=== PATIENT | male | born 1965 | race Caucasian/White ===

== ENCOUNTER 2020-09-12 06:57 | Outpatient (CLI) | payer OTHER, SELFPAY ==
--- NOTE | ~2020-09-12 | CT_ITS ---
EXAMINATION: CT lung screening DATE: 09/12/2020 07:19 INDICATION: Tobacco dependence TECHNIQUE: Computed tomography (CT) of the chest was performed without intravenous contrast. The dose -length product was 79.50 mGy-cm. Automated exposure control and iterative reconstruction technique w ere employed. COMPARISON: Chest x-ray dated 07/29/2015 FINDINGS: No significant pleural or pericardial effusion. No thoracic lymphadenopathy. No significant pleural or pericardial effusion. Moderate emphysema. No significant soft tissue abnormality. There i s bilateral gynecomastia. No endobronchial lesions. Small chronic cavitary lesion right middle lobe, likely benign. No focal airspace consolidation. No pneumothorax. Tiny 2 mm right fissural nodule, abdias ge 66. No osteolytic or osteoblastic lesions. Mild thoracic spondylosis. IMPRESSION: 1. Lung-RADS category 2: Benign appearance or behavior. Continue annual screening with noncontrast lo w-dose chest CT in 12 months. Reviewed, dictated and finalized at location B. 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 Lung-RADS category 2: Benign appearance or behavior. Continue annual screeni ng with noncontrast low-dose chest CT in 12 months.
== END 2020-09-12 06:58 | disposition home or self-care (01) ==
PROVIDERS: PCP Family Medicine; Visit Provider Physician Assistant
DX: Z12.2 Encounter for screening for malignant neoplasm of respiratory organs (principal); F17.290 Nicotine dependence, other tobacco product, uncomplicated
CPT/HCPCS: G0297

== ENCOUNTER → 2021-02-22 01:05 | Outpatient (CLI) | payer OTHER, SELFPAY ==
[2021-02-22 19:43] LABS: SARS-CoV-2 RNA PCR Negative
== END ==
PROVIDERS: PCP Family Medicine; Visit Provider Internal Medicine Gastroenterology
DX: Z01.812 Encounter for preprocedural laboratory examination (principal); Z20.822 Contact with and (suspected) exposure to COVID-19
CPT/HCPCS: C9803; U0003; U0005

== ENCOUNTER 2021-02-26 02:42 | Day surgery (SDC) | payer OTHER, SELFPAY ==
[2021-02-13 14:48] VITALS: BMI 21.1
--- NOTE | 2021-02-25 15:29 | P.PNAN_ITS ---
Anes - Initial Pre Proc Eval Procedure: Operation Date: 02/26/21 07:30 Proposed Procedures p Screening Colonoscopy - Jonathon Junior MD Date/Time: 02/25/21 15:29 Surgeon: Jonathon Junior MD Pre Op Diagnosis: hx of colon polyps Patient Data Age: 55 Gender: M Height: 1.75 m Weight: 65 kg Allergies Allergy/AdvReac Type Severity Reaction Status Date / Time No Known Allergies Allergy Verified 02/26/21 06:17 Home Medications Medication Instructions Recorded Confirmed Type fluticasone propion-salmeterol 1 inh INHALATION 02/13/21 History [Wixela Inhub] lisinopril-hydrochlorothiazide 1 tablet 02/13/21 History Patient hx anesthesia problems: none Family hx anesthesia problems: none REPLACED BY [facility] Past Medical History Medical History COPD (chronic obstructive pulmonary disease) Depression ETOH abuse HCV (hepatitis C virus) HTN (hypertension) Smoker Family History Family History (Updated 05/08/16 @ 23:21 by DOCTOR UNKNOWN) Mother Patient's mother is in good health Sibling Patient's sister is in good health Patient's brother is in good health Father Family history of malignant neoplasm Patient's father is Social History Social History Smoking packs per day: 1.5 Smoking cigarettes per day: 30.0 Years smoked: 39 Smoking pack-years: 58.50 Smoking status: Current every day smoker Tobacco type: cigarettes Alcohol intake: never Drinks per week: 60 Alcohol use details: BEER Living arrangements: with roommate(s) Gender identity (if verbalized by the patient): Female Spiritual care concerns: No Anes - Eval Final PreProcedure Day of Procedure 02/25/21 15:29 Patient weight: normal Heart: regular rate and rhythm Lungs: clear to auscultation and normal air movement Airway: Mallampati scale class II Neurological: alert and oriented Last oral intake: >/= 8 hours ASA classification: III Emergent: no Anesthetic plan: proceed Anesthesia type and monitoring: general GIVS Informed Consent: The patient's anesthetic plan and its attendant risks and benefits were discussed with the patient/family/POA. Questions were solicited and answers provided to the satisfaction of the patient/family/POA.
[2021-02-26 06:19] VITALS: BP 155/101; PULSE 88; RESP 20; TEMP 36.2; O2SAT 97; BMI 22.2
[2021-02-26] MEDS: LACTATED RINGERS 1,000 ML 150 ML IV CONT (06:33)
--- NOTE | 2021-02-26 07:31 | PM.HPGS ---
History of Present Illness History of Present Illness Consent: Risks, benefits, and alternatives have been discussed and questions answered. Patient agrees to proceed with procedure. Chief complaint: hx of colon polyps Narrative: Les Baker is a 55 year old male with colon polyps 2019 Review of Systems Constitutional: Constitutional: Denies headache(s) and Denies weakness Eyes: Eyes: Denies blurry vision ENT: Reports Normal hearing present, Denies headache(s) and Denies neck pain Cardiovascular: Cardiovascular: Denies chest pain and Denies dyspnea Respiratory: Respiratory: Denies dyspnea Gastrointestinal: Gastrointestinal: Reports no additional gastrointestinal complaints Genitourinary: Genitourinary: Denies dysuria Musculoskeletal: Musculoskeletal: Denies neck pain Integumentary/Breasts: Skin/Breast: Denies dry skin Neurologic: Reports Normal hearing present, Denies headache(s) and Denies weakness Psychiatric: Psychiatric: Denies anxiety Endocrine: Endocrine: Denies change in body appearance Hematologic/Lymphatic: Hematologic/Lymphatic: Denies easy bleeding Allergic/Immunologic: Allergic/Immunologic: Denies urticaria PMFSH Past Medical History Medical History Adenomatous colon polyp COPD (chronic obstructive pulmonary disease) Depression ETOH abuse HCV (hepatitis C virus) HTN (hypertension) Smoker Family History Family History (Updated 05/08/16 @ 23:21 by DOCTOR UNKNOWN) Mother Patient's mother is in good health Sibling Patient's sister is in good health Patient's brother is in good health Father Family history of malignant neoplasm Patient's father is Social History Social History Smoking packs per day: 1.5 Smoking cigarettes per day: 30.0 Years smoked: 39 Smoking pack-years: 58.50 Smoking status: Current every day smoker Tobacco type: cigarettes Alcohol intake: never Drinks per week: 60 Alcohol use details: BEER Living arrangements: with roommate(s) Gender identity (if verbalized by the patient): Female Spiritual care concerns: No Meds Home Medications and Allergies Home Medications Medication Instructions Recorded Confirmed Type fluticasone propion-salmeterol 1 inh INHALATION 02/13/21 History [Wixela Inhub] lisinopril-hydrochlorothiazide 1 tablet 02/13/21 History Allergies Allergy/AdvReac Type Severity Reaction Status Date / Time No Known Allergies Allergy Verified 02/26/21 06:17 Vital Signs Vital Signs - 24 hr 02/26/21 06:19 Temperature 97.1 F L Pulse Rate 88 Respiratory Rate 20 Blood Pressure 155/101 H Pulse Oximetry 97 Exam Const: General: comfortable and no acute distress HENMT: General nose exam: Normal nares present Eyes: General: appearance normal, both eyes and all related structures Neck: Neck: no JVD Resp: Auscultation: clear to auscultation bilaterally Cardio: Rate: regular rate Rhythm: regular rhythm GI: Inspection: non-distended GI Palp: Yes Soft to palpation Skin: General skin exam: normal color Neuro: General: gait normal Speech: normal speech Extrem: General: normal to inspection Psych: Mental Status: mental status grossly normal Assessment and Plan Assessment and plan (1) Adenomatous colon polyp: Code(s): D12.6 - Benign neoplasm of colon, unspecified Status: Acute Assessment and Plan: colonoscopy
[2021-02-26 07:57] VITALS: BP 138/91; PULSE 74; RESP 23; O2SAT 98
[2021-02-26 08:07] VITALS: BP 142/98; PULSE 88; RESP 26; O2SAT 99
[2021-02-26 08:17] VITALS: BP 142/82; PULSE 82; RESP 26; O2SAT 99
== END 2021-02-26 08:37 | disposition home or self-care (01) ==
PROVIDERS: PCP Family Medicine; Visit Provider Internal Medicine Gastroenterology
PROC: 0DJD8ZZ Inspection of Lower Intestinal Tract, Via Natural or Artificial Opening Endoscopic (ICD-10-PCS; CPT 45378; principal; 2021-02-26 07:30)
DX: Z12.11 Encounter for screening for malignant neoplasm of colon (principal); D12.2 Benign neoplasm of ascending colon; K57.30 Diverticulosis of large intestine without perforation or abscess without bleeding; K64.8 Other hemorrhoids; J44.9 Chronic obstructive pulmonary disease, unspecified; I10 Essential (primary) hypertension; F32.9 Major depressive disorder, single episode, unspecified; B19.20 Unspecified viral hepatitis C without hepatic coma; F17.210 Nicotine dependence, cigarettes, uncomplicated
CPT/HCPCS: 45385; 88305; J2704; J7120

== ENCOUNTER 2021-03-18 09:38 | Outpatient (CLI) | payer OTHER, SELFPAY ==
--- NOTE | 2021-03-25 16:02 | WPDHOLTEREM ---
Holter/Event Monitor Holter/Event Monitor Date of procedure: 03/18/21 Procedure Type: 48 hour holter monitor Indications: Palpitations Conclusion: 1. 48 hour holter monitor on 03/18/21. 2. Underlying rhythm is sinus rhythm. HR range 62-130 bpm; average HR 92 bpm. 3. There are 1,822 premature supraventricular complexes, 2 supraventricular couplets, 3 supraventricular bigeminy and 12 supraventricular trigeminy. No supraventricular tachycardia. 4. There are 7 premature ventricular complexes and 1 ventricular couplet. No ventricular tachycardia. 5. No sinoatrial or atrioventricular blocks. No significant pauses greater than 2 seconds. 6. Patient reports symptoms of heart pumping and chest pain which demonstrate sinus rhythm, HR range 94-98 bpm and 1 PAC.
== END 2021-03-18 09:39 | disposition home or self-care (01) ==
PROVIDERS: PCP Family Medicine; Visit Provider Family Medicine
DX: R00.2 Palpitations (principal)
CPT/HCPCS: 93225; 93226

== ENCOUNTER 2021-03-28 09:41 | Outpatient (CLI) | payer OTHER, SELFPAY ==
--- NOTE | ~2021-03-28 | US_ITS ---
EXAMINATION: US art doppler w press LE BI DATE: 03/28/2021 11:07 INDICATION: Intermittent claudication TECHNIQUE: Segmental pressures and plethysmographic and Doppler waveforms of the brachial and lower e xtremity arteries were obtained. COMPARISON: None. FINDINGS: Right and left brachial artery pressures of 117 mm Hg and 117 mm Hg, respectively, are concordant (no rmal difference <= 30 mmHg). The right and left high-thigh pressure indices are 0.95 and 1.06, respec tively (normal > 1.2). The right ankle-brachial index (NEO) is 0.94 (normal >= 0.9-1). The right great toe-brachial index (T BI) is 0.57 (normal >= 0.6-0.8). The right lower extremity segmental pressure gradients are normal (n ormal gradients <= 20-30 mmHg between adjacent levels on the same leg or the same levels on the two l egs). Arterial waveforms are biphasic with brisk systolic upstrokes throughout. The left NEO is 0.99. The left TBI is 0.56. The left lower extremity segmental pressure gradients are normal. Arterial waveforms are biphasic with brisk systolic upstrokes throughout. IMPRESSION: 1. Mild arterial occlusive disease to the bilateral lower limbs with borderline bilateral ABIs and mi ldly decreased bilateral TBIs. Reviewed, dictated and finalized at location A. IMPRESSION: 1. Mild arterial occlusive disease to the bilateral lower limbs with borderline bilateral ABIs and mildly decreased bilateral TBIs.
== END 2021-03-28 09:42 | disposition home or self-care (01) ==
PROVIDERS: PCP Family Medicine; Visit Provider Family Medicine
DX: I73.9 Peripheral vascular disease, unspecified (principal)
CPT/HCPCS: 93923

== ENCOUNTER 2021-04-05 09:28 | Emergency (ER) | payer OTHER, SELFPAY ==
[2021-04-05 09:37] VITALS: BP 134/80; PULSE 100; RESP 18; TEMP 36.7; O2SAT 98
--- NOTE | 2021-04-05 09:56 | ED.GENADULT ---
HPI - General Adult General Chief complaint: Skin/Abscess/Foreign Body Stated complaint: Boil on back of leg Source: patient Mode of arrival: ambulatory Limitations: no limitations History of Present Illness HPI narrative: Patient presents for evaluation of painful swollen lesion to the posterior aspect of the right thigh for the last few months. On Wednesday of this past week he felt a warm fluid running down the back of his leg. He visualized the area and noted that it was draining purulent material. The following day he contacted his daughter who applied some pressure and drained additional purulent material. No fever, chills, nausea, vomiting. He is not diabetic. Current everyday smoker, reporting 1-1.5 pack per day habit. Related Data Home Medications Medication Instructions Recorded Confirmed atorvastatin 40 mg PO DAILY 04/05/21 04/05/21 fluticasone propion-salmeterol 2 inh INHALATION DIRECTED 04/05/21 04/05/21 [Wixela Inhub] lisinopril-hydrochlorothiazide 1 tablet PO DAILY 04/05/21 04/05/21 Allergies Allergy/AdvReac Type Severity Reaction Status Date / Time No Known Allergies Allergy Verified 02/26/21 06:17 Review of Systems Review of Systems: Narrative: CONSTITUTIONAL: Denies fever, chills, or sweats. EYES: Denies visual changes, redness, or discharge. ENT: Denies rhinorrhea, congestion, sore throat, or otalgia. CARDIOVASCULAR: Denies chest pain, palpitations, or edema. RESPIRATORY: Denies cough or dyspnea. GASTROINTESTINAL: Denies abdominal pain, nausea, vomiting, or diarrhea. GENITOURINARY: Denies dysuria or hematuria. SKIN: Reports painful, swollen lesion to the posterior aspect of the right thigh MUSCULOSKELETAL: Denies back pain, joint pain, or myalgia. NEUROLOGIC: Denies headache, numbness, dizziness, or weakness. PSYCHIATRIC: Denies anxiety or depression. [facility] Past Medical History Medical History Adenomatous colon polyp COPD (chronic obstructive pulmonary disease) Depression ETOH abuse HCV (hepatitis C virus) HTN (hypertension) Smoker Family History Family History Mother Patient's mother is in good health Sibling Patient's sister is in good health Patient's brother is in good health Father Family history of malignant neoplasm Patient's father is Social History Social History Smoking packs per day: 1.5 Smoking cigarettes per day: 30.0 Years smoked: 39 Smoking pack-years: 58.50 Smoking status: Current every day smoker Tobacco type: cigarettes Alcohol intake: never Drinks per week: 60 Gender identity (if verbalized by the patient): Female Spiritual care concerns: No Exam Narrative: Exam Narrative: GENERAL: Well-appearing, well-nourished, and in no acute distress. HEAD: Normocephalic, atraumatic. EYES: PERRLA and EOMI. ENT: Nares clear, no rhinorrhea or epistaxis. Mucous membranes moist. Oropharynx without tonsillar hypertrophy exudate or other lesions. Bilateral TMs pearly ovalles nonbulging NECK: Supple. No adenopathy or masses. No carotid bruits or JVD CHEST: Clear to auscultation. No respiratory distress. No wheezes rales or rhonchi HEART: Regular rate and rhythm. No murmur heard. Normal peripheral pulses. ABDOMEN: Soft, nontender, nondistended, normal active bowel sounds. EXTREMITIES: Normal range of motion. No edema. SKIN: Approximately 1.5 cm raised erythematous lesion to posterior aspect of right thigh with approximately 7 cm area of surround erythema. Central aspect of lesion is flutuant, tender to palpation with some excoriation of epidermis. Otherwise skin is warm, dry, no rash. NEURO: No focal deficits. Alert and oriented x3. PSYCH: Normal mood and affect. Course Course Emergency Course: This is a 55-year-old male who presents with an abscess to the posterior aspect of the right thigh. Incision and
== END 2021-04-05 10:43 | disposition home or self-care (01) ==
PROVIDERS: Emergency Provider Nurse Practitioner; PCP Family Medicine
DX: L02.415 Cutaneous abscess of right lower limb (principal); F17.210 Nicotine dependence, cigarettes, uncomplicated; J44.9 Chronic obstructive pulmonary disease, unspecified; F32.9 Major depressive disorder, single episode, unspecified; I10 Essential (primary) hypertension
CPT/HCPCS: 10061; 87070; 87075; 87076; 87205; 99213; G0463

== ENCOUNTER 2021-06-24 08:09 | Outpatient (CLI) | payer OTHER, SELFPAY ==
--- NOTE | 2021-06-24 08:37 | ECHO_ITS ---
Patient Info Name: Les Baker Age: 55 years : 1965 Gender: Male Ht: 69 in Wt: 145 lbs BSA: 1.79 m2 HR: 78 bpm BP: 145 / 93 mmHg Technical Quality: Good Exam Date: 06/24/2021 9:10 AM Exam Location: [facility] Patient Status: Outpatient Admit Date: 06/24/2021 Staff Ordering Physician: Julien Osborne DO [employer] Specialist: Brooks Lucas RDCS, RT Attending Provider: Julien Osborne DO Referring Physician: Dylon HONG; Exam Type: CA echo doppler color flow Study Info Indications R06.00 - Dyspnea, unspecified Complete two-dimensional, color flow and Doppler transthoracic echocardiogram is performed. Strain analysis performed. Summary 1. Complete two-dimensional, color flow and Doppler transthoracic echocardiogram is performed. 2. Left ventricular chamber dimension is normal. 3. Left ventricular systolic function is normal, estimated at 60-65%. 4. The left ventricular diastolic function is grade I diastolic dysfunction. 5. E/e' 9 is minimally elevated. 6. Global longitudinal strain is abnormal at -15.1%. 7. No pulmonary hypertension, estimated pulmonary arterial systolic pressure is 37 mmHg. Left Ventricle E/e' 9 is minimally elevated. Global longitudinal strain is abnormal at -15.1%. Left ventricular chamber dimension is normal. Left ventricular systolic function is normal, estimated at 60-65%. The left ventricular diastolic function is grade I diastolic dysfunction. Right Ventricle Right ventricular systolic function is normal and with normal TAPSE 2.2 cm. Right ventricular chamber dimension is normal. Left Atria Left atrial chamber dimension is normal. Right Atria Right atrial chamber dimension is normal. Aortic Valve The aortic valve is trileaflet. There is no aortic valve stenosis. There is no aortic valve regurgitation. Pulmonic Valve There is no pulmonic regurgitation. Mitral Valve There is no mitral valve stenosis. There is no mitral valve regurgitation. Tricuspid Valve There is no tricuspid valve regurgitation. No pulmonary hypertension, estimated pulmonary arterial systolic pressure is 37 mmHg. Pericardium/Pleural There is no pericardial effusion. Inferior Vena Cava Normal inferior vena cava with >50% collapse upon inspiration consistent with normal right atrial pressure, 5 mmHg. Aorta The aortic root size at the sinus of Valsalva is normal. Left Ventricular Outflow Tract Name Value Normal LVOT 2D LVOT Diameter 2.0 cm LVOT Doppler LVOT Peak Gradient 4 mmHg LVOT Mean Gradient 2 mmHg LVOT VTI 18 cm LVOT VTI/AV VTI Ratio 1.0 LVOT Stroke Volume 59 ml LVOT CO 4.6 l/min LVOT CI 2.6 l/min/m2 Mitral Valve Name Value Normal MV Doppler
== END 2021-06-24 08:10 | disposition home or self-care (01) ==
PROVIDERS: PCP Family Medicine; Visit Provider Internal Medicine Cardiovascular Disease
DX: R06.00 Dyspnea, unspecified (principal)
CPT/HCPCS: 93306

== ENCOUNTER 2021-07-15 07:31 | Outpatient (CLI) | payer OTHER, SELFPAY ==
--- NOTE | 2021-07-24 13:45 | WPDHOMESLEEP ---
Sleep Study - Home Unattended Date of Study: 07/15/21 <Indu Ramires DO - Last Filed: 07/24/21 14:02> Ordering Provider: Julien Osborne DO <Indu Ramires DO - Last Filed: 07/24/21 14:02> Interpreting Provider: Indu Ramires DO <Indu Ramires DO - Last Filed: 07/24/21 14:02> Home Sleep Study Type: Apnea Link Air <Indu Ramires DO - Last Filed: 07/24/21 14:02> Height: 1.75 m <Indu Ramires DO - Last Filed: 07/24/21 14:02> Weight: 62.596 kg <Indu Ramires DO - Last Filed: 07/24/21 14:02> Body Mass Index: 20.3 <Indu Ramires DO - Last Filed: 07/24/21 14:02> Neck Circumference (inches): 15 <Indu Ramires DO - Last Filed: 07/24/21 14:02> Ariton: 5 <Indu Ramires DO - Last Filed: 07/24/21 14:02> Reason for Sleep Study The patient states that he wakes up frequently throughout the night due to breathing problems. <Indu Ramires DO - Last Filed: 07/24/21 14:02> Sleep History The patient is a 55-year-old male with COPD, peripheral arterial disease, hypertension, dyslipidemia, alcoholism, tobacco use and history hepatitis C virus that had a home sleep test ordered by his primary care physician due to sleep disturbances. the patient states that he wakes up every 2 hours throughout the night due to breathing problems. This occurs almost every night and has been going on for more than 2 years. The patient constantly awakens from sleep short of breath. He denies awakening at night with heartburn, belching or cough. He often snores throughout the night but rarely is it loud enough that others complain. He frequently wakes up gasping for air throughout the night. He is constantly having breathing problems at night better noticed by others. He constantly sweats excessively at night. He often has heart pounding or heart palpitations throughout the night. He rarely falls asleep during the day and never while driving. He denies having trouble at school or work due to sleepiness. He denies sleep paralysis, cataplexy and hypnopompic/hypnagogic hallucinations. He denies having nightmares. he constantly has thoughts racing through his mind. He frequently feels sad depressed and anxious. Notices parts of his body jerking. He denies kicking throughout the night. He denies experiencing crawling and aching feelings in his legs as well as leg pain throughout the night. He denies grinding his teeth during sleep waking up with morning jaw pain. He is constantly bothered by pain during the day and is rarely awakened by pain throughout the night. He frequently wakes up feeling stiff in the morning with sore and achy muscles. the patient goes to bed at 10:00 p.m. on both the weekdays and weekends. It takes him 30-45 minutes to fall asleep. He wakes up 3 to 5 times per night. He usually wakes up every 2 hours and when he wakes up he will use the restroom. It will take him 10-15 minutes to fall asleep. He usually wakes up at 4:30 a.m. a.m., moves to the couch and will fall asleep until 6-630 in the morning. The patient typically gets 4 hours of sleep per night. The patient does not consume any caffeinated beverages 2 hours prior to bedtime. He does not engage in any physical activity before bedtime. He denies reading before falling asleep but he will watch television. He does not take naps in the afternoon or evening. The patient currently smokes 1.5 packs of cigarettes per day for the past 39 years. He drinks 6-8 alcoholic beverages per day. He denies any caffeine and recreational drug use. <Indu Ramires DO - Last Filed: 07/24/21 14:02> [facility] Past Medical History Medical History: Medical History Adenomatous colon polyp COPD (chronic obstructive pulmonary disease) Depression ETOH abuse HCV (hepatitis C virus) HTN (hypertension) Smoker <Indu Ramires DO - Last Filed: 07/24/21 14:02> Family H
[2021-07-24 14:00] VITALS: BMI 20.3
== END 2021-07-16 12:19 | disposition home or self-care (01) ==
LOC: ANHCSM 07:33
PROVIDERS: PCP Family Medicine; Visit Provider Internal Medicine Cardiovascular Disease
DX: G47.9 Sleep disorder, unspecified (principal)
CPT/HCPCS: 95806

== ENCOUNTER 2022-08-17 13:18 | Emergency (ER) | payer OTHER, SELFPAY ==
--- NOTE | ~2022-08-17 | XR_ITS ---
XR chest 2V DATE: 08/17/2022 15:18 INDICATION: Shortness of breath TECHNIQUE: PA and lateral views COMPARISON: None FINDINGS: Approximately 8 mm opacity overlying the right mid to upper lung, not present on 09/12/2020, suspicious for right upper lobe or superior segment right lower lobe lung mass. Moderate bilateral hyperinflation. No pulmonary infiltrate or consolidation, pulmonary vascular lance estion or pleural effusion or pneumothorax.. Normal heart size. No hilar or mediastinal enlargement. Degenerative spurring of the lower thoracic spine. IMPRESSION: 8 mm right upper lung mass, suspicious for lung cancer; CT thorax is recommended. Moderate hyperinflation, consistent with COPD Reviewed, dictated and finalized at location A. P SHOOTER IMPRESSION: 8 mm right upper lung mass, suspicious for lung cancer; CT thorax i s recommended. Moderate hyperinflation, consistent with COPD
[2022-08-17 14:13] VITALS: BP 150/98; PULSE 83; RESP 22; TEMP 37.3; O2SAT 99
[2022-08-17 15:02] LABS: Basophils Percent Auto 0.6 % (0.2-1.2); Eosinophils Percent Auto 0.6 % (0-4.4); Hematocrit 40.3 % (42.0-52.0); Hemoglobin 14.3 g/dL (14.0-18.0); Immature Granulocyte Absolute 0.03 K/mm3 (0.00-0.031); Immature Granulocyte Percent A 0.4 % (0-0.5); Lymphocytes Absolute Auto 1.73 K/mm3 (0.9-3.2); Lymphocytes Percent Auto 23.9 % (18.3-44.2); Mean Corpuscular HGB Conc 35.5 g/dl (32-36); Mean Corpuscular Hemoglobin 32.4 pg (26-34); Mean Corpuscular Volume 91.4 fl (80-100); Mean Platelet Volume 8.5 fl (7.4-10.4); Monocytes Absolute Auto 0.5 K/mm3 (0.1-0.6); Monocytes Percent Auto 7.2 % (2.6-8.5); Neutrophils Absolute Auto 4.9 K/mm3 (1.3-6.7); Neutrophils Percent Auto 67.3 % (45.5-73.1); Platelet Count Result 262 k/mm3 (150-375); Red Blood Count 4.41 M/mm3 (4.6-6.20); Red Cell Distribution Width 12.6 % (11.5-14.5); White Blood Count 7.2 K/mm3 (4.5-10.0)
[2022-08-17 15:05] LABS: Alanine Aminotransferase 51 U/L (6-50); Albumin Level 4.3 g/dL (3.5-5.1); Alkaline Phosphatase 72 U/L (38-126); Anion Gap 13 mmol/L (8-16); Aspartate Amino Transferase 52 U/L (17-59); Bilirubin,Total 0.8 mg/dL (0.2-1.3); Blood Urea Nitrogen 9 mg/dL (9-20); Calcium 8.9 mg/dL (8.4-10.2); Carbon Dioxide 25 mmol/L (22-30); Chloride 94 mmol/L (98-107); Estimated CRCL calculation 76 ml/min; Estimated Glomerular Filt Rate > 60; Glucose 85 mg/dL (65-110); Potassium 3.9 mmol/L (3.4-5.0); Sodium 132 mmol/L (137-145)
--- NOTE | 2022-08-17 18:07 | ED.GENADULT ---
HPI - General Adult General Chief complaint: Shortness of Breath/Dyspnea Stated complaint: trouble breathing Time Seen by Provider: 08/17/22 17:58 History of Present Illness HPI narrative: Patient is a 56-year-old male with a history of a large pulmonary nodule suspicious for lung cancer, COPD here for evaluation of shortness of breath today. Patient states that he did not take any of his home medications for his breathing including Spiriva and albuterol this morning because he was taken into police custody. States that he has been short of breath ever since with exertion. He denies any cough, fevers, chest pain, nausea, vomiting, leg swelling or sick contacts. States that this is what happens when he does not take his breathing medication. He has a history of a lung nodule that is being followed by his primary care doctor, had a CT scan done last week but is waiting on the results. Has been seeing pulmonology for this. Related Data Home Medications Medication Instructions Recorded Confirmed atorvastatin 40 mg tablet 40 mg PO DAILY 04/05/21 12/12/21 fluticasone 500 mcg-salmeterol 50 2 inh inhalation DIRECTED 04/05/21 12/12/21 mcg/dose blistr powdr for inhalation (Rivkaxela Inhub) lisinopril 20 1 tablet PO DAILY 04/05/21 12/12/21 mg-hydrochlorothiazide 12.5 mg tablet albuterol sulfate 90 mcg/actuation 1 puff inhalation Q4H PRN 07/04/21 12/12/21 aerosol inhaler Allergies Allergy/AdvReac Type Severity Reaction Status Date / Time No Known Allergies Allergy Verified 12/12/21 13:52 Review of Systems Review of Systems: Gen: Denies fevers or chills Eyes: Denies eye pain or visual change ENT: Denies congestion Respiratory: Reports shortness of breath. Denies cough CV: Denies chest pain or palpitations GI: Denies abdominal pain nausea, emesis or diarrhea : denies burning, urgency, frequency or hematuria Musculoskeletal: Denies back pain or muscle pain Neuro: Denies numbness, tingling, weakness or focal weakness Skin: Denies rash Except as documented, all other systems reviewed and negative PMFSH Past Medical History Medical History Adenomatous colon polyp COPD (chronic obstructive pulmonary disease) Depression ETOH abuse HCV (hepatitis C virus) HTN (hypertension) Smoker Family History Family History Mother Patient's mother is in good health Sibling Patient's sister is in good health Patient's brother is in good health Father Family history of malignant neoplasm Patient's father is Social History Social History Smoking packs per day: 1.5 Smoking cigarettes per day: 30.0 Years smoked: 39 Smoking pack-years: 58.50 Smoking status: Current every day smoker Tobacco type: cigarettes Alcohol intake: never Drinks per week: 60 Alcohol use details: BEER Gender identity (if verbalized by the patient): Female Spiritual care concerns: No Exam Narrative: APPEARANCE: Well appearing, no pain in distress, well-nourished. Head: Normocephalic and atraumatic. EYES: PERRLA/EOMI, conjunctivae clear NOSE: No nasal drainage EARS: External ear normal in appearance THROAT: Oropharynx is clear. Mucous membranes are moist. NECK: Supple. No adenopathy, no masses. RESPIRATORY: Expiratory wheezes in the right lower lung castro. Airway patent, respirations nonlabored. no rales, rhonchi. CARDIOVASCULAR: Regular rate and rhythm without murmurs, rubs, or gallops. ABDOMINAL: Normoactive bowel sounds. Soft, nontender, nondistended. No rebound tenderness or guarding. MUSCULOSKELETAL: Extremities are warm and well-perfused. Moves all extremities well. No edema. NEURO: Normal speech. No focal neurologic deficits. SKIN: Skin is warm and dry. No rashes. PSYCHIATRIC: Normal affect/mood.. Course Vital Signs Vital signs: Vital Signs Temperature 99.1 F
--- NOTE | 2022-08-17 18:30 | ECG_ITS ---
Measurements Intervals [place] Rate: 99 P: 76 VT: 134 QRS: 79 QRSD: 88 T: 72 QT: 373 QTc: 480 Interpretive Statements SINUS RHYTHM ATRIAL PREMATURE COMPLEX BORDERLINE R WAVE PROGRESSION, ANTERIOR LEADS BASELINE ARTIFACT- I, II, III, V3 BORDERLINE ECG NO PREVIOUS ECG AVAILABLE FOR COMPARISON Electronically Signed On 08-17-2022 19:52:35 DATA ANALYSIS MANAGER by Julien MCLEOD
[2022-08-17] MEDS: ALBUTEROL SULFATE NEB 2.5 MG/3 ML INH 5 MG INHALATION (18:43)
[2022-08-17 18:44] VITALS: PULSE 83; RESP 21
[2022-08-17 20:30] VITALS: BP 142/82; PULSE 67; RESP 18; O2SAT 99
== END 2022-08-17 20:20 ==
PROVIDERS: Emergency Provider Family Medicine; PCP Physician Assistant
DX: J44.9 Chronic obstructive pulmonary disease, unspecified (principal); R91.8 Other nonspecific abnormal finding of lung field; I10 Essential (primary) hypertension; Z86.010 Personal history of colon polyps; Z86.19 Personal history of other infectious and parasitic diseases; F17.210 Nicotine dependence, cigarettes, uncomplicated; I49.1 Atrial premature depolarization; R94.31 Abnormal electrocardiogram [ECG] [EKG]
CPT/HCPCS: 36415; 71046; 80053; 85025; 93005; 94640; 99284

== ENCOUNTER 2022-09-30 11:45 | Outpatient (CLI) | payer OTHER, SELFPAY ==
--- NOTE | ~2022-09-30 | XR_ITS ---
XR lumbar spine 2-3V DATE: 09/30/2022 12:19 INDICATION: Low back pain, mid back pain. No known injury. TECHNIQUE: AP, lateral, coned lateral lumbosacral views COMPARISON: None FINDINGS: There is mild thoracolumbar levoscoliosis. There is severe degenerative disease and mild retrolisthesis at L5-S1. There is moderate degenerative disease at L1-2, L2-3 and L3-4 mild degenerative disease at L4-5. Prominent degenerative spurring in the lower thoracic spine. Included lower thoracic and lumbar pedicles are intact. No fracture or bone destruction. The sacroiliac joints appear normal. IMPRESSION: Multilevel degenerative disc disease, most severe at L5-S1, with associated mild retrolis thesis at this level Reviewed, dictated and finalized at location B. OFFICE MANAGER IMPRESSION: Multilevel degenerative disc disease, most severe at L5-S1, with as sociated mild retrolisthesis at this level
--- NOTE | ~2022-09-30 | XR_ITS ---
Thoracic spine: Clinical Indication: Pain AP and lateral views were performed. No fracture is seen. There is normal alignment of the vertebrae. The intervertebral disc spaces appe ar normal. Paravertebral soft tissues appear normal. Impression: No significant abnormalities noted. Reviewed, dictated and finalized at [facility]. AS GOODS FABRICATOR Impression: No significant abnormalities noted.
== END 2022-09-30 11:46 | disposition home or self-care (01) ==
LOC: ANHIMG 11:50
PROVIDERS: PCP Physician Assistant; Visit Provider Physician Assistant
DX: M51.37 Other intervertebral disc degeneration, lumbosacral region (principal)
CPT/HCPCS: 72072; 72100

== ENCOUNTER 2022-10-28 15:58 | Outpatient (CLI) | payer OTHER, SELFPAY ==
[2022-10-28 17:36] LABS: Prostate Specific Antigen 1.9 ng/mL (< OR = 4.0)
== END 2022-10-28 15:59 | disposition home or self-care (01) ==
LOC: ANHLAB 16:01
PROVIDERS: PCP Physician Assistant
DX: N40.1 Benign prostatic hyperplasia with lower urinary tract symptoms (principal); N13.8 Other obstructive and reflux uropathy
CPT/HCPCS: 36415; 84153

== ENCOUNTER 2023-03-01 08:00 | Outpatient (RCR) | payer OTHER, SELFPAY ==
--- NOTE | 2023-02-04 10:14 | PTOPEVAL1 ---
Assessment and note entered by Long Robbins, PT Evaluation Information Assessment Status Evaluation Diagnosis low back pain Onset Chronic Subjective Information Patient reports chronic back pain for a long time. It is aggravated by walking, sleeping on his back , bending forward, and being in prolonged position for a long time. He does take a sleeping pill to help sleep, but wakes up on average 3 times a night from pain. He will take IBU when it is really hurting, does not use heating or cold packs or any topical ointments for pain control. The pain will radiate down the RLE to the knee once or twice a week. Reported Pain Level Pain Score 2: Self Report Assessment PT Clinical Summary Duncan is a 57 year old male coming into the clinic with a diagnosis of low back pain with occasional radiating symptoms. The patient has decreased mobility and flexibility in the low back and lower extremities along with weakness in the core and hips. Physical therapy will work on improving deficits to have better core strength, lower extremity strength and increased flexibility of the muscles. Modalities and manual therapy as needed for pain control. Plan of Care Interventions Electrical Stimulation,Gait Training,Hot Pack/Cold Pack,Manual Therapy,Mechanical Traction,Neuro Re- education,Patient/Caregiver Education,Therapeutic Activities,Therapeutic Exercise,Ultrasound Other Interventions taping, cupping, IASTM PT Services Indicated Yes Treatment Frequency and 1-2x/wk for 4 weeks Duration These treatments will address the objective and functional deficits as defined above. The patient will be advanced safely and appropriately in order for the patient to progress towards his/her prior level of function. Additional exercises will be introduced and as well as a comprehensive home exercise program upon discharge, if needed, ?to ensure carryover of functional gains achieved in the clinic. This treatment plan has been reviewed and agreement upon by the patient.
--- NOTE | 2023-02-18 08:30 | PCPTNOTE ---
Pt NS for his appt today stating he stayed up too late and is hurting. He declined a later visit today and also wants to cancel his appt on the . He was reminded of his next appt. on Wednesday at 8:45.
--- NOTE | 2023-02-22 11:16 | PCPTNOTE ---
Patient did not show up for scheduled appointment this date. Called patient and he thought his appointment was tomorrow morning.
--- NOTE | 2023-03-04 08:24 | PCPTNOTE ---
Patient did not show up for scheduled appointment this date.
--- NOTE | 2023-03-11 11:55 | PCPTNOTE ---
Admitting Provider: Attending Provider: Verenice Bui, TIARA Patient:Les Baker Date of :1965 Patient has not returned for any further treatments since 03/01/2023, therefore he will be discharged at this time. Patient?s initial visit was on 02/04/2023 09:00 and he had a total of ____3____ visits with 3 no shows and 1 cancelation. The goals have been not met. Thank you for referring this patient to [facility]. Please review, sign, date and return this discharge summary GAB. I have been updated about the patient's current status and I agree with discharge from the above service at this time. Referring Physician Date
== END 2023-03-15 13:12 | disposition home or self-care (01) ==
LOC: ANHPT 08:00
PROVIDERS: PCP Physician Assistant; Visit Provider Physician Assistant
DX: M54.50 Low back pain, unspecified (principal)
CPT/HCPCS: 97014; 97110; 97161; 99199; G0283

== ENCOUNTER 2023-05-28 23:52 | Emergency (ER) | payer OTHER, SELFPAY ==
--- NOTE | ~2023-05-28 | CT_ITS ---
EXAMINATION: CT facial & cervical spine wo DATE: 05/29/2023 01:28 INDICATION: Head injury. TECHNIQUE: Computed tomography (CT) of the maxillofacial region and cervical spine was performed with out intravenous contrast. Automated exposure control and iterative reconstruction technique were empl oyed. The dose-length product was 361.55 mGy-cm. COMPARISON: None FINDINGS: MAXILLOFACIAL CT: There is left cheek soft tissue swelling. There is mild mucosal thickening in the paranasal sinuses. There are old left zygomaticomaxillary complex fracture deformities including the lateral wall and fl oor of left orbit, left zygomatic arch, and anterior and posterolateral payton of left maxillary sinus . No acute fracture. The mastoid air cells are normal. There is leftward deviation of the nasal septu m. CERVICAL SPINE CT: There is mild emphysema. There is 7 degrees levocurvature of cervicothoracic spine. Vertebral body he ights are normal. There is mildly decreased disc height at C3-C4 and moderately decreased disc height at C6-C7. The following disc levels are specifically discussed: C2-C3: There is mild right and moderate left uncovertebral joint osteoarthritis. There is moderate bi lateral facet joint osteoarthritis. There is mild bilateral neural foraminal stenosis. There is no ce ntral canal stenosis. C3-C4: There is severe right and moderate left uncovertebral joint osteoarthritis. There is severe ri ght and moderate left facet joint osteoarthritis. There is mild bilateral neural foraminal stenosis. There is mild central canal stenosis. C4-C5: There is severe right and mild left uncovertebral joint osteoarthritis. There is severe right and moderate left facet joint osteoarthritis. There is moderate right neural foraminal stenosis. Ther e is mild central canal stenosis. C5-C6: There is severe bilateral uncovertebral joint osteoarthritis. There is severe bilateral facet joint osteoarthritis. There is moderate right and mild left neural foraminal stenosis. There is mild central canal stenosis. C6-C7: There is severe bilateral uncovertebral joint osteoarthritis. There is moderate right and mild left facet joint osteoarthritis. There is moderate bilateral neural foraminal stenosis. There is mil d central canal stenosis. C7-T1: There is no uncovertebral joint osteoarthritis. There is moderate bilateral facet joint osteoa rthritis. There is no neural foraminal stenosis. There is no central canal stenosis. IMPRESSION: 1. No acute fracture. 2. Severe cervical spondylosis. Reviewed, dictated and finalized at location A.
--- NOTE | ~2023-05-28 | CT_ITS ---
EXAMINATION: CT brain wo con DATE: 05/29/2023 01:28 INDICATION: Head injury. TECHNIQUE: Computed tomography (CT) of the head was performed without intravenous contrast. The mA wa s adjusted according to patient size. Iterative reconstruction technique was employed. The dose-lengt h product was 605.33 mGy-cm. COMPARISON: None FINDINGS: There are scattered areas of low attenuation in the cerebral white matter. There is no intr acranial hemorrhage, acute infarction, or abnormal intracranial mass lesion. The ventricles are gus l in size. The orbits are normal. There is old fracture deformity of posterolateral wall of left maxi llary sinus. The mastoid air cells are normal. There is left cheek soft tissue swelling. IMPRESSION: 1. Mild nonspecific cerebral white matter disease, which likely represents chronic small vessel ische juan disease. Reviewed, dictated and finalized at location A. IMPRESSION: 1. Mild nonspecific cerebral white matter disease, which likely represents day spa manager jaiden small vessel ischemic disease.
[2023-05-28 23:57] VITALS: BP 151/93; PULSE 70; RESP 14; TEMP 36.6; O2SAT 97
[2023-05-29] VITALS (7 sets, daily range): BP systolic 106–117; BP diastolic 79–85; O2SAT 90–97
--- NOTE | 2023-05-29 00:29 | ED.FALL ---
HPI - Fall General Chief Complaint: Fall Stated Complaint: +ETOH, cheek lac Time Seen by Provider: 05/29/23 00:16 Source: patient Mode of arrival: ambulatory Limitations: intoxication History of Present Illness HPI Narrative: This is a 57 year old male that presents to the ER for head injury sustained just prior to arrival. Reports he has been drinking. He was walking up his steps on the back porch and tripped and fell forward. Hit his head on a wooden chair. Reports laceration to his left cheek. Reports bleeding and pain to the area. Denies loss of consciousness, visual changes, vomiting, numbness or weakness. Related Data Home Medications Medication Instructions Recorded Confirmed atorvastatin 40 mg tablet 40 mg PO DAILY 04/05/21 12/12/21 fluticasone 500 mcg-salmeterol 50 2 inh inhalation DIRECTED 04/05/21 12/12/21 mcg/dose blistr powdr for inhalation (Valorie Inhub) lisinopril 20 1 tablet PO DAILY 04/05/21 12/12/21 mg-hydrochlorothiazide 12.5 mg tablet albuterol sulfate 90 mcg/actuation 1 puff inhalation Q4H PRN 07/04/21 12/12/21 aerosol inhaler Allergies Allergy/AdvReac Type Severity Reaction Status Date / Time No Known Allergies Allergy Verified 12/12/21 13:52 Review of Systems Review of Systems: CONSTITUTIONAL: Denies fever EYES: Denies visual changes GASTROINTESTINAL: Denies vomiting MUSCULOSKELETAL: Denies back pain, joint pain, or myalgia. NEUROLOGIC: Denies numbness, or weakness. All systems reviewed & are unremarkable except as noted in HPI and below PMFSH Past Medical History Medical History Adenomatous colon polyp COPD (chronic obstructive pulmonary disease) Depression ETOH abuse HCV (hepatitis C virus) HTN (hypertension) Smoker Family History Family History Mother Patient's mother is in good health Sibling Patient's sister is in good health Patient's brother is in good health Father Family history of malignant neoplasm Patient's father is Social History Social History Smoking packs per day: 1.5 Smoking cigarettes per day: 30.0 Years smoked: 39 Smoking pack-years: 58.50 Smoking status: Current every day smoker Tobacco type: cigarettes Alcohol intake: never Drinks per week: 60 Alcohol use details: BEER Living arrangements: with roommate(s) Gender identity (if verbalized by the patient): Female Spiritual care concerns: No Exam Narrative: GENERAL: Well-appearing, well-nourished, and in no acute distress. HEAD: Normocephalic. 4cm linear laceration into subcutaneous tissue over the left cheek EYES: PERRLA and EOMI. ENT: Nares clear, no rhinorrhea or epistaxis. Mucous membranes moist. Oropharynx without tonsillar hypertrophy exudate or other lesions. Bilateral TMs pearly ovalles non-bulging NECK: Supple. No adenopathy or masses. CHEST: Clear to auscultation. No respiratory distress. No wheezes rales or rhonchi HEART: Regular rate and rhythm. No murmur heard. Normal peripheral pulses. EXTREMITIES: Normal range of motion. No edema. Strength equal in bilateral upper and lower extremities (5/5) SKIN: Warm, dry, no rash. NEURO: No focal deficits. Alert and oriented x3. CN II-XII grossly intact PSYCH: Normal mood and affect Course Course Emergency Course: After patient's laceration was sutured and before receiving CT scan reports patient left the emergency department. Was found walking down the road. PD has been called to ensure patient has a safe way home. His CT scans did then come back and are negative for acute intracranial pathology or cervical spine fracture Vital Signs Vital signs: Vital Signs Temperature 98 F 05/28/23 23:57 Pulse Rate 70 05/28/23 23:57 Respiratory Rate 14 05/28/23 23:57 Blood Pressure 151/93 H 05/28/23 23:57 Pulse Oximetry 97 05/28/23 23:57 Oxygen Delivery Natalie
[2023-05-29] MEDS: TETANUS,DIPHTHERIA,AC PERTUSSIS ADULT (0.5 ML) BOOSTRIX IM (00:38)
[2023-05-29] MEDS: traZODone HCL 50 MG TABLET 100 MG PO (02:31)
--- NOTE | 2023-05-29 02:34 | PC.NURSE ---
Patient attempted to leave and was stopped by nursing staff. Patient was told we need to wait till the CT report comes back. Patient became aggravated and stated he was going to leave anyway. Patient was told by EDP TIARA Vasquez that he was too intoxicated to leave.
--- NOTE | 2023-05-29 02:38 | PC.NURSE ---
Patient eloped and is currently outside the ED walking with security.
== END 2023-05-29 02:57 | disposition left against medical advice (07) ==
PROVIDERS: Emergency Provider Physician Assistant; PCP Physician Assistant
DX: S01.412A Laceration without foreign body of left cheek and temporomandibular area, initial encounter (principal); Z23 Encounter for immunization; J44.9 Chronic obstructive pulmonary disease, unspecified; I10 Essential (primary) hypertension; B19.20 Unspecified viral hepatitis C without hepatic coma; F17.210 Nicotine dependence, cigarettes, uncomplicated; Z86.010 Personal history of colon polyps; W10.9XXA Fall (on) (from) unspecified stairs and steps, initial encounter
CPT/HCPCS: 12052; 70450; 70486; 72125; 90471; 90715; 99284; A9270

== ENCOUNTER 2024-08-11 03:02 | Day surgery (SDC) | payer MEDICARE, MEDICAID, SELFPAY ==
[2024-07-31 15:30] VITALS: BMI 21.1
[2024-08-11 06:26] VITALS: BMI 21.2
[2024-08-11 06:47] VITALS: BP 153/86; PULSE 72; RESP 22; TEMP 36.2; O2SAT 99
[2024-08-11] MEDS: LACTATED RINGERS 1,000 ML 150 ML IV CONT (06:48)
--- NOTE | 2024-08-11 07:15 | P.HP_ITS ---
History of Present Illness History of Present Illness Consent: Risks, benefits, and alternatives have been discussed and questions answered. Patient agrees to proceed with procedure. Chief complaint: Personal hx. colon Polyps Narrative: Les Baker is a 58 year old male with colon polyp in 2020 Review of Systems Review of Systems: All systems reviewed & are unremarkable except as noted in HPI and below PMFSH Past Medical History Medical History Adenomatous colon polyp COPD (chronic obstructive pulmonary disease) Depression ETOH abuse HCV (hepatitis C virus) HTN (hypertension) Smoker Family History Family History Mother Patient's mother is in good health Sibling Patient's sister is in good health Patient's brother is in good health Father Family history of malignant neoplasm Patient's father is Social History Social History Smoking packs per day: 1 Smoking cigarettes per day: 20.0 Years smoked: 45 Smoking pack-years: 45.00 Smoking status: Current every day smoker Tobacco type: cigarettes Alcohol intake: current Drinks per week: 60 Alcohol use details: 4 drinks a day liquor Living arrangements: alone Gender identity (if verbalized by the patient): Female Spiritual care concerns: No Meds Home Medications and Allergies Home Medications Medication Instructions Recorded Confirmed Type atorvastatin 40 mg tablet 40 mg PO DAILY 04/05/21 08/11/24 History lisinopril 20 1 tablet PO DAILY 04/05/21 08/11/24 History mg-hydrochlorothiazide 12.5 mg tablet albuterol sulfate 90 mcg/actuation 1 puff inhalation Q4H PRN SOB 07/04/21 08/11/24 History aerosol inhaler fluticasone fur. 200 mcg-umeclid 1 ea inhalation DAILY 07/31/24 08/11/24 History 62.5 mcg-vilant 25 mcg inhalat.powder (Trelegy Ellipta) hydrocodone 5 mg-acetaminophen 325 1 tablet PO Q4H PRN Pain 07/31/24 08/11/24 History mg tablet mirabegron 50 mg tablet,extended 50 mg PO DAILY 07/31/24 08/11/24 History release 24 hr (Myrbetriq) montelukast 10 mg tablet 10 mg PO HS 07/31/24 08/11/24 History oxybutynin chloride 10 mg 10 mg PO DAILY 07/31/24 08/11/24 History tablet,extended release 24 hr sertraline 100 mg tablet 100 mg PO HS 07/31/24 08/11/24 History tamsulosin 0.4 mg capsule 0.4 mg PO DAILY 07/31/24 08/11/24 History trazodone 50 mg tablet 100 mg PO HS 07/31/24 08/11/24 History Allergies Allergy/AdvReac Type Severity Reaction Status Date / Time No Known Allergies Allergy Verified 08/11/24 06:23 Vital Signs Vital Signs - 24 hr 08/11/24 06:47 Temperature 97.1 F L Pulse Rate 72 Respiratory Rate 22 H Blood Pressure 153/86 H Pulse Oximetry 99 Oxygen Delivery Room Air Exam Const: General: comfortable and no acute distress HENMT: Face/Nose/Sinus: Normal nares present Eyes: General: appearance normal, both eyes and all related structures Neck: Neck: no JVD Resp: Auscultation: clear to auscultation bilaterally Cardio: Rate: regular rate Rhythm: regular rhythm GI: Inspection: non-distended GI Palp: Yes Soft to palpation Skin: General skin exam: normal color Neuro: General: gait normal Speech: normal speech Extrem: General: normal to inspection Psych: Mental Status: mental status grossly normal Assessment and Plan Assessment and plan (1) Adenomatous colon polyp: Code(s): D12.6 - Benign neoplasm of colon, unspecified Status: Acute Assessment and Plan: colonoscopy
--- NOTE | 2024-08-11 07:28 | P.PNAN_ITS ---
Anes - Initial Pre Proc Eval Procedure: Operation Date: 08/11/24 07:30 Proposed Procedures p Colonoscopy - Jonathon Junior MD Date/Time: 08/11/24 07:28 Surgeon: Jonathon Junior MD Pre Op Diagnosis: Personal hx. colon Polyps Patient Data Age: 58 Gender: M Height: 1.75 m Weight: 65.4 kg Last Vital Signs Temp 36.2 C L 08/11/24 06:47 Pulse 72 08/11/24 06:47 Resp 22 H 08/11/24 06:47 BP 153/86 H 08/11/24 06:47 Pulse Ox 99 08/11/24 06:47 O2 Del Method Room Air 08/11/24 06:47 Allergies Allergy/AdvReac Type Severity Reaction Status Date / Time No Known Allergies Allergy Verified 08/11/24 06:23 Home Medications Medication Instructions Recorded Confirmed Type atorvastatin 40 mg tablet 40 mg PO DAILY 04/05/21 08/11/24 History lisinopril 20 1 tablet PO DAILY 04/05/21 08/11/24 History mg-hydrochlorothiazide 12.5 mg tablet albuterol sulfate 90 mcg/actuation 1 puff inhalation Q4H PRN SOB 07/04/21 08/11/24 History aerosol inhaler fluticasone fur. 200 mcg-umeclid 1 ea inhalation DAILY 07/31/24 08/11/24 History 62.5 mcg-vilant 25 mcg inhalat.powder (Trelegy Ellipta) hydrocodone 5 mg-acetaminophen 325 1 tablet PO Q4H PRN Pain 07/31/24 08/11/24 History mg tablet mirabegron 50 mg tablet,extended 50 mg PO DAILY 07/31/24 08/11/24 History release 24 hr (Myrbetriq) montelukast 10 mg tablet 10 mg PO HS 07/31/24 08/11/24 History oxybutynin chloride 10 mg 10 mg PO DAILY 07/31/24 08/11/24 History tablet,extended release 24 hr sertraline 100 mg tablet 100 mg PO HS 07/31/24 08/11/24 History tamsulosin 0.4 mg capsule 0.4 mg PO DAILY 07/31/24 08/11/24 History trazodone 50 mg tablet 100 mg PO HS 07/31/24 08/11/24 History Patient hx anesthesia problems: none Family hx anesthesia problems: none Results Review: All pre-operative results and documents have been reviewed as part of the pre- operative evaluation. [facility] Past Medical History Medical History Adenomatous colon polyp COPD (chronic obstructive pulmonary disease) Depression ETOH abuse HCV (hepatitis C virus) HTN (hypertension) Smoker Family History Family History Mother Patient's mother is in good health Sibling Patient's sister is in good health Patient's brother is in good health Father Family history of malignant neoplasm Patient's father is Social History Social History Smoking packs per day: 1 Smoking cigarettes per day: 20.0 Years smoked: 45 Smoking pack-years: 45.00 Smoking status: Current every day smoker Tobacco type: cigarettes Alcohol intake: current Drinks per week: 60 Alcohol use details: 4 drinks a day liquor Living arrangements: alone Gender identity (if verbalized by the patient): Female Spiritual care concerns: No Anes - Eval Final PreProcedure Day of Procedure 08/11/24 07:28 Patient weight: normal Heart: regular rate and rhythm Lungs: decreased breath sounds Airway: Mallampati scale class II Neurological: alert and oriented Last oral intake: >/= 8 hours ASA classification: III Emergent: no Anesthetic plan: proceed Anesthesia type and monitoring: general GIVS and standard monitoring Results Review: All pre-operative results and documents have been reviewed as part of the pre- operative evaluation. Informed Consent: The patient's anesthetic plan and its attendant risks and benefits were discussed with the patient/family/POA. Questions were solicited and answers provided to the satisfaction of the patient/family/POA.
[2024-08-11 07:59] VITALS: BP 96/62; PULSE 75; RESP 19; O2SAT 96
[2024-08-11 08:09] VITALS: BP 135/84; PULSE 74; RESP 26; O2SAT 96
[2024-08-11 08:19] VITALS: BP 148/91; PULSE 69; RESP 26; O2SAT 100
== END 2024-08-11 08:34 | disposition home or self-care (01) ==
PROVIDERS: PCP Physician Assistant; Visit Provider Internal Medicine Gastroenterology
PROC: 0DJD8ZZ Inspection of Lower Intestinal Tract, Via Natural or Artificial Opening Endoscopic (ICD-10-PCS; CPT 45378; principal; 2024-08-11 07:30)
DX: Z12.11 Encounter for screening for malignant neoplasm of colon (principal); D12.2 Benign neoplasm of ascending colon; K64.8 Other hemorrhoids; K57.30 Diverticulosis of large intestine without perforation or abscess without bleeding; I10 Essential (primary) hypertension; J44.9 Chronic obstructive pulmonary disease, unspecified; F32.A Depression, unspecified; F17.210 Nicotine dependence, cigarettes, uncomplicated; Z79.51 Long term (current) use of inhaled steroids; Z79.891 Long term (current) use of opiate analgesic; Z80.9 Family history of malignant neoplasm, unspecified
CPT/HCPCS: 45385; 88305; J2003; J2704; J7120

== ENCOUNTER 2024-10-24 14:48 | Inpatient (IN) | payer MEDICARE, SELFPAY ==
--- NOTE | ~2024-10-24 | CT_ITS ---
EXAMINATION: CT abdomen pelvis w con DATE: 10/24/2024 16:36 INDICATION: Abdominal pain TECHNIQUE: Computed tomography (CT) of the abdomen and pelvis was performed with 100 mL Omnipaque-350 intravenous contrast. Automated exposure control and iterative reconstruction technique were employe d. The dose-length product was 263.23 mGy-cm. COMPARISON: 11/22/2018 FINDINGS: Moderate emphysema in the visualized lower lungs. Heart size is normal. No pericardial or pleural eff usion. Liver, gallbladder, spleen, pancreas, bilateral adrenal glands and kidneys are normal. There i s moderate sigmoid diverticulosis. There is inflammatory stranding surrounding a diverticulum at the proximal sigmoid colon with a few tiny foci of free gas along the mesentery. No more remote free intr aperitoneal gas or abscess. There is a small amount of ascites along the liver and in the deep pelvis . There is wall thickening the sigmoid colon extending short distance proximally and distally to the region of diverticulitis as well as additional edematous wall thickening along the adjacent short seg ment of small bowel which are likely reactive edema related to the diverticulitis. Normal appendix. B ladder is normal. Surgical clips versus brachytherapy seeds in the enlarged prostate. No pathological ly enlarged abdominal or pelvic lymphadenopathy. Severe spondylosis at the lumbosacral junction with mild to moderate spondylosis and more cephalad lumbar and lower thoracic spine. IMPRESSION: 1. Sigmoid diverticulitis with likely microperforation with small amount of likely reactive ascites a nd minimal extraluminal gas in the mesentery immediately adjacent to the diverticulitis. No abscess. 2. Likely reactive edematous wall thickening at the sigmoid colon as well as involving and adjacent s hort segment of small bowel. Reviewed, dictated and finalized at location B. USIONIST IMPRESSION: 1. Sigmoid diverticulitis with likely microperforation with small amount of lik dong reactive ascites and minimal extraluminal gas in the mesentery immediately adjacent to the diverticulitis. No abscess. 2. Likely reactive edematous wall thickening at the sigmoid colon as well as in volving and adjacent short segment of small bowel.
[2024-10-24 14:54] VITALS: BP 129/87; PULSE 107; RESP 20; TEMP 36.6; O2SAT 97
--- NOTE | 2024-10-24 15:11 | ED_ITS ---
HPI - Abdominal Pain General Chief Complaint: Abdominal Pain Stated Complaint: lower abd pain x1d Time Seen by Provider: 10/24/24 15:10 Source: patient Mode of arrival: ambulatory Limitations: no limitations History of Present Illness HPI narrative: 58 YEARS OLD WHITE MALE CAME TO THE ED BY PRIVATE CAR FROM HOME COMPLAINING OF SEVERE LOWER ABDOMINAL PAIN STARTED YESTERDAY, GRADUALLY GETTING WORSE. ASSOCIATED WITH NAUSEA. HE DENIES ANY FEVER OR CHILLS DIARRHEA CONSTIPATION OR URINARY SYMPTOMS. PATIENT DENIES ANY HISTORY OF ABDOMINAL SURGERY. HISTORY OF BLADDER LEFT. HYPERTENSION, TOBACCO USE. Related Data Home Medications ?Medication ?Instructions ?Recorded ?Confirmed ?Last Taken ?Type atorvastatin 40 mg tablet 40 mg PO DAILY 04/05/21 08/11/24 08/10/24 History lisinopril 20 1 tablet PO DAILY 04/05/21 08/11/24 08/10/24 History mg-hydrochlorothiazide 12.5 mg tablet albuterol sulfate 90 mcg/actuation 1 puff inhalation Q4H PRN SOB 07/04/21 08/11/24 08/10/24 History aerosol inhaler fluticasone fur. 200 mcg-umeclid 1 ea inhalation DAILY 07/31/24 08/11/24 08/10/24 History 62.5 mcg-vilant 25 mcg inhalat.powder (Trelegy Ellipta) hydrocodone 5 mg-acetaminophen 325 1 tablet PO Q4H PRN Pain 07/31/24 08/11/24 08/10/24 History mg tablet mirabegron 50 mg tablet,extended 50 mg PO DAILY 07/31/24 08/11/24 08/10/24 History release 24 hr (Myrbetriq) montelukast 10 mg tablet 10 mg PO HS 07/31/24 08/11/24 08/10/24 History oxybutynin chloride 10 mg 10 mg PO DAILY 07/31/24 08/11/24 08/10/24 History tablet,extended release 24 hr sertraline 100 mg tablet 100 mg PO HS 07/31/24 08/11/24 08/10/24 History tamsulosin 0.4 mg capsule 0.4 mg PO DAILY 07/31/24 08/11/24 08/10/24 History trazodone 50 mg tablet 100 mg PO HS 07/31/24 08/11/24 08/10/24 History Allergies Allergy/AdvReac Type Severity Reaction Status Date / Time No Known Allergies Allergy Verified 10/24/24 17:36 Review of Systems 2 Review of Systems: All systems reviewed & are unremarkable except as noted in HPI and below PMFSH Past Medical History Medical History Adenomatous colon polyp ETOH abuse Smoker Depression HCV (hepatitis C virus) COPD (chronic obstructive pulmonary disease) HTN (hypertension) Family History Family History Mother Patient's mother is in good health Sibling Patient's sister is in good health Patient's brother is in good health Father Family history of malignant neoplasm Patient's father is Social History Social History Smoking packs per day: 1 Smoking cigarettes per day: 20.0 Years smoked: 45 Smoking pack-years: 45.00 Smoking status: Current every day smoker Tobacco type: cigarettes Alcohol intake: current Drinks per week: 60 Alcohol use details: 4 drinks a day liquor Living arrangements: alone Gender identity (if verbalized by the patient): Female Spiritual care concerns: No Exam 2 Narrative: GENERAL APPEARANCE: WELL-DEVELOPED, WELL-NOURISHED, LOOKS IN PAIN SKIN: NORMAL COLOR HEAD: NORMOCEPHALIC, NONTRAUMATIC EYES: CLEAR CONJUNCTIVA ENT: OROPHARYNX NORMAL, EARS NORMAL, NOSE NORMAL NECK: SUPPLE, NONTENDER CHEST AND RESPIRATORY: AIRWAY PATENT, NO RESPIRATORY DISTRESS, NO ACCESSORY MUSCLE USE HEART: REGULAR RATE/RHYTHM ABDOMEN: SOFT, DIFFUSE TENDERNESS SUPRAPUBIC AREA,, POSITIVE GUARDING AND REBOUND, NO ORGANOMEGALY, QUIET BOWEL SOUNDS VASCULAR: NORMAL PERIPHERAL PULSES, NORMAL CAPILLARY REFILL. MUSCULOSKELETAL: NORMAL RANGE OF MOTION, NONTENDER BACK NEUROLOGIC: ALERT AND ORIENTED ?3, PROTECTION MANAGER IS NORMAL TESTED, NO GROSS MOTOR DEFICIT Course Consultations Consultation #1: DR NICOLE Date: 10/24/24 Vital Signs Vital signs: Vital Signs Temperature 36.6 C 10/24/24 14:54 Pulse Rate 107 H 10/24/24 14:54 Respiratory Rate 20 10/24/24 14:54 Blood Pressure 129/87 10/24/24 14:54 Pulse Oximetry 97 10/24/24 14:54 Oxygen Delivery Room Air 10/24/24 14:54 Temperature 36.6 C 10/24/24 14:54 Pulse Rate 107 H 10/24/24 14:54 Respiratory Rate 20 10/24/24 14:54 Blood Pressure 129/87 10/24/24 14:54 Pulse Oximetry 97 10/24/24 14:54 Oxygen Delivery Room Air 10/24/24 14:54 MDM - Abdominal Pain MDM Narrative Medical decision making narrative: PATIENT CAME WITH LOWER ABDOMINAL PAIN VITAL SIGNS SHOWING HEART RATE OF 107 OTHERWISE INSIGNIFICANT PHYSICAL EXAMINATION CONSISTENT WITH DIFFUSE TENDERNESS LOWER ABDOMEN DIFFERENTIAL DIAGNOSIS INCLUDE APPENDICITIS, URINARY TRACT INFECTION, KIDNEY STONE, CONSTIPATION, DIVERTICULITIS, COLITIS, ABDOMINAL WALL PAIN, ANXIETY LIKE SYMPTOMS. BLOOD WORKUP TODAY INCLUDES CBC, CMP, LIPASE SHOWED URINALYSIS SHOWED CT SCAN OF THE ABDOMEN AND PELVIS WITH IV CONTRAST SHOWED DIVERTICULITIS WITH MICROPERFORATION, NO ABSCESS ADMIT TO HOSPITALIST, CONSULT SURGERY, IV LEVAQUIN AND FLAGYL STARTED Differential Diagnosis Differential diagnosis: Likely other ( ABOVE) Medical Records Attestation: I reviewed the patient's medical records. Lab Data Attestation: I reviewed the patient's lab results. 10/24/24 15:26 10/24/24 15:26 Labs: Lab Results 10/24/24 10/24/24 Range/Units 15:26 16:52 WBC 21.3 H (4.5-10.0) K/mm3 RBC 4.43 L (4.6-6.20) M/mm3 Hgb 14.3 (14.0-18.0) g/dL Hct 41.5 L (42.0-52.0) % MCV 93.7 (80-100) fl MCH 32.3 (26-34) pg MCHC 34.5 (32-36) g/dl RDW 13.0 (11.5-14.5) % Plt Count 301 (150-375) k/mm3 MPV 8.5 (7.4-10.4) fl Immature Gran % (Auto) 0.4 (0-0.5) % Neut % (Auto) 88.8 H (45.5-73.1) % Lymph % (Auto) 8.9 L (18.3-44.2) % [place] % (Auto) 1.6 L (2.6-8.5) % Eos % (Auto) 0.1 (0-4.4) % Baso % (Auto) 0.2 (0.2-1.2) % Lymph # (Auto) 1.90 (0.9-3.2) K/mm3 [place] # (Auto) 0.3 (0.1-0.6) K/mm3 Eos # (Auto) 0.0 (0-0.3) K/mm3 Baso # (Auto) 0.0 (0.0-0.1) K/mm3 Abs Immat Gran (auto) 0.09 H (0.00-0.031) K/mm3 Absolute Neuts (auto) 18.9 H (1.3-6.7) K/mm3 Absolute Nucleated RBC 0.000 (0.0-0.012) K/mm3 Nucleated RBC % 0.0 (0.0-0.2) % Sodium 136 L (137-145) mmol/L Potassium 3.1 L (3.4-5.0) mmol/L Chloride 95 L (98-107) mmol/L Carbon Dioxide 33 H (22-30) mmol/L Anion Gap 8 (4-12) mmol/L BUN 12 (9-20) mg/dL Creatinine 0.65 L (0.7-1.3) mg/dL Estim Creat Clear Calc 96 ml/min Estimated GFR > 60 (59 - ) Glucose 128 H (65-110) mg/dL Calcium 9.0 (8.4-10.2) mg/dL Total Bilirubin 0.9 (0.2-1.3) mg/dL AST 28 (17-59) U/L ALT 28 (6-50) U/L Alkaline Phosphatase 137 H (38-126) U/L Total Protein 7.0 (6.3-8.2) g/dL Albumin 4.0 (3.5-5.1) g/dL Lipase 20 L (23-300) U/L Urine Color Yellow (Yellow) Urine Appearance Clear (Clear) Urine pH 6.0 (5.0-9.0) Ur Specific [place] 1.019 (1.001-1.035) Urine Protein Negative (Negative) mg/dL Urine Glucose (UA) Negative (Negative) mg/dL Urine Ketones Negative (Negative) mg/dL Ur Blood (Man) Negative (Negative) Urine Nitrate Negative (Negative) Urine Bilirubin Negative (Negative) Urine Urobilinogen 1.0 (<2.0) mg/dL Leukocyte Esterase Rfl Negative (Negative) RANDY/UL Imaging Data Radiologist's impression: ITS Impressions Abdomen/Pelvis CT 10/24/24 16:41 IMPRESSION: 1. Sigmoid diverticulitis with likely microperforation with small amount of likely reactive ascites and minimal extraluminal gas in the mesentery immediately adjacent to the diverticulitis. No abscess. 2. Likely reactive edematous wall thickening at the sigmoid colon as well as involving and adjacent short segment of small bowel. Critical Care Time Critical Care Time Critical Care Time: Yes Total Critical Care Time: 30 Discharge Plan Discharge Clinical Impression: Diverticulitis of colon with perforation Patient Disposition: Still a Patient Condition: Stable Patient Language: Sami Prescriptions: No Action atorvastatin 40 mg tablet 40 mg PO DAILY lisinopril-hydrochlorothiazide 20-12.5 mg tablet 1 tablet PO DAILY albuterol sulfate 90 mcg/actuation HFA aerosol inhaler 1 puff inhalation Q4H PRN (Reason: SOB) trazodone 50 mg tablet 100 mg PO HS oxybutynin chloride 10 mg tablet extended release 24hr 10 mg PO DAILY hydrocodone-acetaminophen 5-325 mg Tablet 1 tablet PO Q4H PRN (Reason: Pain) sertraline 100 mg tablet 100 mg PO HS tamsulosin 0.4 mg capsule 0.4 mg PO DAILY montelukast 10 mg tablet 10 mg PO HS mirabegron [Myrbetriq] 50 mg Tablet Extended Release 24 Hr 50 mg PO DAILY Trelegy Ellipta 200-62.5-25 mcg blister with device 1 ea INHALATION DAILY Follow-up/Referrals: Hao,TIARA Hdz [Primary Care Provider] -
[2024-10-24] MEDS: SODIUM CHLORIDE 0.9% IV 1,000 ML 999 ML IV CONT ×2 (15:26→17:55)
[2024-10-24 15:32] LABS: Basophils Percent Auto 0.2 % (0.2-1.2); Eosinophils Percent Auto 0.1 % (0-4.4); Hematocrit 41.5 % (42.0-52.0); Hemoglobin 14.3 g/dL (14.0-18.0); Immature Granulocyte Absolute 0.09 K/mm3 (0.00-0.031); Immature Granulocyte Percent A 0.4 % (0-0.5); Lymphocytes Percent Auto 8.9 % (18.3-44.2); Mean Corpuscular HGB Conc 34.5 g/dl (32-36); Mean Corpuscular Hemoglobin 32.3 pg (26-34); Mean Corpuscular Volume 93.7 fl (80-100); Mean Platelet Volume 8.5 fl (7.4-10.4); Monocytes Absolute Auto 0.3 K/mm3 (0.1-0.6); Monocytes Percent Auto 1.6 % (2.6-8.5); Neutrophils Absolute Auto 18.9 K/mm3 (1.3-6.7); Neutrophils Percent Auto 88.8 % (45.5-73.1); Platelet Count Result 301 k/mm3 (150-375); Red Blood Count 4.43 M/mm3 (4.6-6.20); White Blood Count 21.3 K/mm3 (4.5-10.0)
[2024-10-24 15:43] LABS: Alanine Aminotransferase 28 U/L (6-50); Alkaline Phosphatase 137 U/L (38-126); Anion Gap 8 mmol/L (4-12); Aspartate Amino Transferase 28 U/L (17-59); Bilirubin,Total 0.9 mg/dL (0.2-1.3); Blood Urea Nitrogen 12 mg/dL (9-20); Carbon Dioxide 33 mmol/L (22-30); Chloride 95 mmol/L (98-107); Estimated CRCL calculation 96 ml/min; Estimated Glomerular Filt Rate > 60; Glucose 128 mg/dL (65-110); Lipase 20 U/L (23-300); Potassium 3.1 mmol/L (3.4-5.0); Sodium 136 mmol/L (137-145)
[2024-10-24] MEDS: HYDROmorphone HCL INJ (*CRX) 1 MG/ML SYR 0.5 MG IV PUSH ×2 (15:52→20:33)
[2024-10-24] MEDS: ONDANSETRON INJ 4 MG/2 ML VIAL IV PUSH (15:52)
[2024-10-24 16:59] LABS: Add Urine Microscopic? NO; Appearance Urine Clear (Clear); Bilirubin Urine Negative (Negative); Blood Urine Negative (Negative); Color Urine Yellow (Yellow); Glucose Urine UA Negative (Negative); Ketones Urine Negative (Negative); Leukocyte Esterase Ur Negative LEU/UL (Negative); Nitrate Urine Negative (Negative); Protein Urine Negative (Negative); Specific Grav Ur 1.019 (1.001-1.035)
--- NOTE | 2024-10-24 17:55 | PC.NURSE ---
Per Dr Wakefield, no blood cultures needed prior to starting antibiotics
[2024-10-24] MEDS: POTASSIUM CHLORIDE INJ 40 MEQ in SODIUM CHLORIDE 0.9% IV 500 ML 130 MEQ IVPB (18:16)
[2024-10-24] MEDS: metroNIDAZOLE 500 MG/ISO 100ML 500 MG/100 ML BAG 100 MG IVPB ×2 (18:17→23:55)
[2024-10-24 18:30] VITALS: BP 156/85; PULSE 112; RESP 18; O2SAT 89
[2024-10-24 18:31] VITALS: O2SAT 93
--- NOTE | 2024-10-24 18:31 | PC.NURSE ---
patient O2 was 88% on room air when sleeping. patient placed on 2L NC
[2024-10-24 18:32] VITALS: O2SAT 93
--- NOTE | 2024-10-24 18:51 | ECG_ITS ---
Test Date: 2024-10-24 19:07:49 Measurements Intervals [place] Rate: 110 P: 76 ND: 132 QRS: 68 QRSD: 86 T: 75 QT: 332 QTc: 450 Interpretive Statements SINUS TACHYCARDIA POSSIBLE RIGHT ATRIAL ENLARGEMENT [0.25mV P-WAVE] POSSIBLE LEFT ATRIAL ENLARGEMENT [-0.1mV P-WAVE IN V1/V2] NONSPECIFIC ST & T-WAVE ABNORMALITY No previous ECG available for comparison Electronically Signed On 10-25-2024 14:19:39 [employer] CHECK[employer] by Vickey Cross M.D.
--- NOTE | 2024-10-24 19:21 | PM.IMHP ---
H&P: HPI History of Present Illness Date/Time: 10/24/24 19:20 Chief Complaint: Abdominal pain. Narrative: This is a 58-year-old male smoker with history of throat cancer status post radiation considered to be in remission, alcohol abuse, chronic obstructive pulmonary disease, hypertension, depression, and hepatitis-C which has been treated who presented to the emergency department via private vehicle for evaluation of abdominal pain. The patient provides the following history. He reports a gradual onset of generalized abdominal discomfort starting yesterday. Over the course of the night the pain became more intense and he describes it as constant and cramping in nature with occasional sharp and shooting pains. It has since settled in the left lower quadrant and does not radiate significantly. Associated symptoms include sweats and nausea. This morning he had a watery stool and he has been passing some gas today though he feels bloated. He has never had similar symptoms. He denies documented fever, chest pain, shortness a breath, vomiting, dysuria, hematuria, melena, and hematochezia. He last had something the eat this morning at about 10:00 which was a boiled egg. Last alcoholic beverage was sometime last evening. He denies ever having signs or symptoms of alcohol withdrawal. In the ED: He was afebrile on arrival. Pulse has been a bit high but vital signs are otherwise stable. Labs were significant for WBC count of 21.3, sodium 136, potassium 3.1, chloride 95, carbon dioxide 33, BUN 12, creatinine 0.65, glucose 128, lipase 20. Urinalysis was unremarkable. CT of the abdomen and pelvis showed sigmoid diverticulitis with likely microperforation without abscess. He was started on ceftriaxone and metronidazole and is being admitted in this setting for further treatment and surgery consultation. Review of Systems Review of Systems: 12 systems were reviewed and are negative except for as per HPI. [facility] Past Medical History Medical History (Updated 10/24/24 @ 22:50 by Farzana Baeza PA-C) Chronic obstructive pulmonary disease Tobacco dependence Alcohol abuse Throat cancer status post radiation, considered to be in remission Hepatitis C has completed treatment Hypertension Adenomatous colon polyp Depression Surgical History Surgical History History of colonoscopy with polypectomy Family History Family History Mother Patient's mother is in good health Sibling Patient's sister is in good health Patient's brother is in good health Father Family history of malignant neoplasm Patient's father is Social History Social History (Updated 10/24/24 @ 22:45 by Farzana Baeza PA-C) Social History: Surrogate medical decision maker: Danika Bella, niece. Code status: Do not resuscitate. Smoking packs per day: 1 Smoking cigarettes per day: 20.0 Years smoked: 45 Smoking pack-years: 45.00 Smoking status: Current every day smoker Tobacco type: cigarettes Alcohol intake: current Drinks per week: 60 Alcohol use details: 4 drinks a day liquor Substance use: never Do You Feel Safe in your Home?: Yes Lack of Transportation: No Lack of Food: Never True Current Housing: I Have Housing Concerned About Future Housing: No Difficulty Paying Gas/Electric Bills: No Difficulty Paying for Meds: No Currently Unemployed: No Education: Decline to Answer Difficulty w/ Childcare or Family Care: No Living arrangements: with roommate(s) Occupation/Education: unemployed Additional occupation/education comments: on disability Spiritual care concerns: No Meds Home Medications and Allergies Home Medications ?Medication ?Instructions ?Recorded ?Confirmed ?Type atorvastatin 40 mg tablet 40 mg PO DAILY 04/05/21 10/24/24 History lisinopril 20 1 tablet PO DAILY 04/05/21 10/24/24 History mg-hydrochlorothiazide 12.5 mg tablet albuterol sulfate 90 mcg/actuation 1 puff inhalation Q4H PRN SOB 07/04/21 10/24/24 History aerosol inhaler fluticasone fur. 200 mcg-umeclid 1 ea inhalation DAILY 07/31/24 10/24/24 History 62.5 mcg-vilant 25 mcg inhalat.powder (Trelegy Ellipta) mirabegron 50 mg tablet,extended 50 mg PO DAILY 07/31/24 10/24/24 History release 24 hr (Myrbetriq) montelukast 10 mg tablet 10 mg PO HS 07/31/24 10/24/24 History oxybutynin chloride 10 mg 10 mg PO DAILY 07/31/24 10/24/24 History tablet,extended release 24 hr sertraline 100 mg tablet 100 mg PO HS 07/31/24 10/24/24 History tamsulosin 0.4 mg capsule 0.4 mg PO DAILY 07/31/24 10/24/24 History trazodone 50 mg tablet 100 mg PO HS 07/31/24 10/24/24 History fluticasone propionate 50 1 spray intranasal DAILY PRN 10/24/24 10/24/24 History mcg/actuation nasal allergy symptoms spray,suspension (24 Hour Allergy Relief) Allergies Allergy/AdvReac Type Severity Reaction Status Date / Time No Known Allergies Allergy Verified 10/24/24 17:36 Vital Signs Vital Signs - 24 hr 10/24/24 14:54 10/24/24 18:30 10/24/24 18:31 Temperature 97.9 F Pulse Rate 107 H 112 H Respiratory Rate 20 18 Blood Pressure 129/87 156/85 H Pulse Oximetry 97 89 L 93 Oxygen Delivery Room Air Oxygen Flow Rate 10/24/24 18:32 Temperature Pulse Rate Respiratory Rate Blood Pressure Pulse Oximetry 93 Oxygen Delivery Nasal Cannula Oxygen Flow Rate 2 Exam Narrative: General: Mildly ill-appearing gentleman lying on his right side in bed In moderate pain. Weight: 64.8 kg. BMI: 21.1. HEENT: PERRL, EOMI. Sclera anicteric. Tacky mucous membranes. Neck: Supple. Respiratory: Respirations are nonlabored. Lung sounds are a bit diminished but are otherwise clear to auscultation. Occasional wheezing. Cardiovascular: Tachycardic with normal S1-S2. Gastrointestinal: Abdomen is slightly distended with hypoactive bowel sounds. He is tender to palpation throughout the abdomen but more so in the left lower quadrant. No guarding or rebound tenderness. Skin: Warm and dry. No rash or lesions on limited exam. Extremities: No cyanosis, clubbing, or edema. Radial and pedal pulses intact. Neurological: Alert. Cranial nerves 2-12 are grossly intact. No tremors. No gross focal deficits to casual conversation. Psychiatric: Cooperative with appropriate mood and flat affect. H&P: Results Labs Labs: Short CBC 10/24/24 Range/Units 15:26 WBC 21.3 H (4.5-10.0) K/mm3 Hgb 14.3 (14.0-18.0) g/dL Hct 41.5 L (42.0-52.0) % Plt Count 301 (150-375) k/mm3 BMP 10/24/24 15:26 Sodium 136 L Potassium 3.1 L Chloride 95 L Carbon Dioxide 33 H BUN 12 Creatinine 0.65 L Glucose 128 H Calcium 9.0 Liver Function 10/24/24 Range/Units 15:26 Total Bilirubin 0.9 (0.2-1.3) mg/dL AST 28 (17-59) U/L ALT 28 (6-50) U/L Alkaline Phosphatase 137 H (38-126) U/L Albumin 4.0 (3.5-5.1) g/dL Urine 10/24/24 Range/Units 16:52 Urine Color Yellow (Yellow) Urine Appearance Clear (Clear) Urine pH 6.0 (5.0-9.0) Ur Specific [place] 1.019 (1.001-1.035) Urine Protein Negative (Negative) mg/dL Urine Glucose (UA) Negative (Negative) mg/dL Impressions Abdomen/Pelvis CT 10/24/24 16:41 IMPRESSION: 1. Sigmoid diverticulitis with likely microperforation with small amount of likely reactive ascites and minimal extraluminal gas in the mesentery immediately adjacent to the diverticulitis. No abscess. 2. Likely reactive edematous wall thickening at the sigmoid colon as well as involving and adjacent short segment of small bowel. Assessment and Plan Assessment and plan (1) Diverticulitis of intestine with perforation without abscess: Code(s): K57.80 - Diverticulitis of intestine, part unspecified, with perforation and abscess without bleeding Status: Acute (2) Electrolyte abnormality: Code(s): E87.8 - Other disorders of electrolyte and fluid balance, not elsewhere classified Status: Acute (3) Hypertension: Code(s): I10 - Essential (primary) hypertension Status: Acute (4) Chronic obstructive pulmonary disease: Code(s): J44.9 - Chronic obstructive pulmonary disease, unspecified Status: Acute (5) Alcohol abuse: Code(s): F10.10 - Alcohol abuse, uncomplicated Status: Acute (6) Tobacco abuse: Code(s): Z72.0 - Tobacco use Status: Acute Plan The patient presented to the emergency department for evaluation of abdominal pain as detailed in HPI. Labs, imaging, EKG, and all reports were personally reviewed. CT scan shows evidence of sigmoid diverticulitis with microperforation without abscess. He has been started on ceftriaxone and metronidazole. Continue supportive care with bowel rest, analgesics, and antiemetics as needed. Surgery was consulted by the ED physician and their input is appreciated. Sodium and potassium are a bit low and I suspect he is somewhat dehydrated he has been started on IV fluids. Potassium will be replaced and monitored. No acute issues with regards to COPD; continue maintenance inhalers. Blood pressures have been bit high, likely due to pain. Continue to monitor closely as he is NPO for now.He denies ever having signs or symptoms of alcohol withdrawal however does drink quite a bit and CIWA protocol has been initiated. Nicotine patch ordered per patient request. His home medications will be reviewed and resumed as appropriate. Findings and treatment plan were discussed with the patient. Questions were solicited and answered to satisfaction. The patient's medical management will be taken over by the hospitalist team in a.m. Quality VTE Prophylaxis VTE prophylaxis: pharmacologic ordered Hospitalist [facility] Advance Care Plan I have confirmed that the patient's Advanced Care Plan is present, code status is documented, or surrogate decision maker is listed in patient medical record.: Yes Medication Reconciliation I have utilized all available resources to obtain, update and review the patients current medications (includes all prescriptions, OTC, herbals, cannabis, and nutritional supplements).: Yes
--- NOTE | 2024-10-24 19:55 | ADMGEN ---
This patient, Les Baker, was admitted to [facility] Surg Room 305-01. Patient/family oriented to hospital policies and general routines including ID bracelet, bed and alarms, visiting hours, pain management, procedures, bathroom and other care routines, personal items, smoking policy, room service/diet, and visiting hours. Information on how to activate the Rapid Response Team has been discussed. Patient/Family are encouraged to report perceived risks to care and to ask questions if they do not understand what they are told or what they should do.
[2024-10-24] MEDS: SODIUM CHLORIDE 0.9% IV 1,000 ML 85 ML IV CONT (20:15)
[2024-10-24 22:00] VITALS: BP 118/63; PULSE 111; RESP 18; TEMP 36.8; O2SAT 97
[2024-10-24] MEDS: traZODone HCL 50 MG TABLET PO (23:53)
[2024-10-24] MEDS: NICOTINE (*PBKC) 21 MG PATCH 1 PATCH TRANSDERM (23:54)
[2024-10-25] VITALS (8 sets, daily range): BP systolic 111–141; BP diastolic 64–85; PULSE 78–91; RESP 17–20; TEMP 35.9–37; O2SAT 95–100
[2024-10-25 06:37] LABS: Hematocrit 32.3 % (42.0-52.0); Mean Corpuscular HGB Conc 34.1 g/dl (32-36); Mean Corpuscular Hemoglobin 32.5 pg (26-34); Mean Corpuscular Volume 95.6 fl (80-100); Platelet Count Result 221 k/mm3 (150-375); Red Blood Count 3.38 M/mm3 (4.6-6.20); White Blood Count 22.9 K/mm3 (4.5-10.0)
[2024-10-25 07:11] LABS: Alanine Aminotransferase 22 U/L (6-50); Albumin Level 2.8 g/dL (3.5-5.1); Alkaline Phosphatase 89 U/L (38-126); Anion Gap 2 mmol/L (4-12); Aspartate Amino Transferase 26 U/L (17-59); Bilirubin,Total 0.6 mg/dL (0.2-1.3); Blood Urea Nitrogen 9 mg/dL (9-20); Calcium 7.8 mg/dL (8.4-10.2); Carbon Dioxide 30 mmol/L (22-30); Chloride 101 mmol/L (98-107); Estimated CRCL calculation 111 ml/min; Estimated Glomerular Filt Rate > 60; Glucose 123 mg/dL (65-110); Magnesium 1.5 mg/dL (1.6-2.3); Sodium 133 mmol/L (137-145)
[2024-10-25] MEDS: HYDROmorphone HCL INJ (*CRX) 1 MG/ML SYR 0.5 MG IV PUSH (07:58)
[2024-10-25] MEDS: THIAMINE HCL 200 MG/2 ML VIAL 100 MG IV PUSH (07:58)
[2024-10-25] MEDS: metroNIDAZOLE 500 MG/ISO 100ML 500 MG/100 ML BAG 100 MG IVPB ×2 (07:58→15:52)
[2024-10-25] MEDS: MAGNESIUM SULF 2 GM/WATER 50ML 2 GM/50 ML BAG IVPB (08:42)
[2024-10-25] MEDS: FLUTICASONE/UMECLIDIN/VILANTER 200-62.5-25 MCG ELLIPTA 1 PUFF INHALATION (08:48)
--- NOTE | 2024-10-25 09:59 | P.CONGS_ITS ---
Assessment and Plan Assessment and plan (1) Diverticulitis of intestine with perforation without abscess: Code(s): K57.80 - Diverticulitis of intestine, part unspecified, with perforation and abscess without bleeding Status: Acute Assessment and Plan: * CT scan reviewed and showed sigmoid diverticulitis with microperforation. WBC up slightly today and he has signs of diffuse peritonitis on exam. He remains hemodynamically stable and his tachycardia has resolved. Will keep him NPO except ice chips, continue IV antibiotics, and IV fluids. Will add a lactic acid on today. Continue to monitor closely with serial abdominal exams and labs. Discussed with the patient that if he does not improve with conservative management, then he may require surgical intervention in the acute setting. (2) COPD (chronic obstructive pulmonary disease): Code(s): J44.9 - Chronic obstructive pulmonary disease, unspecified Status: Acute (3) PAD (peripheral artery disease): Code(s): I73.9 - Peripheral vascular disease, unspecified Status: Acute (4) Tobacco abuse: Code(s): Z72.0 - Tobacco use Status: Acute Assessment and Plan: * Encouraged cessation (5) Alcohol abuse: Code(s): F10.10 - Alcohol abuse, uncomplicated Status: Acute Plan I have discussed the patient's case and plan of care with Dr. Ball. Thank you for allowing us to see the patient in consultation and we will continue to follow along with you. History of Present Illness Consult details Consult date: 10/25/24 Reason for consult: other (Diverticulitis with perforation) Requesting physician: Janet Wakefield MD Narrative: This is a 58-year-old man with PMH of COPD, throat cancer status post radiation considered to be in remission, alcohol abuse, hypertension, hepatitis-C, and tobacco dependence, who we have been asked to see in surgical consultation for perforated diverticulitis. He presented to the ED yesterday with complaints of abdominal pain. He reports noticing lower abdominal pain starting 2 days ago. When he woke up yesterday morning, the pain was significantly more intense. He had associated nausea, but no vomiting, fever, or chills. He reports having loose stools yesterday. Denies any blood in his stool. Due to his significant pain, he came into the ED for evaluation. No previous episodes of diverticulitis. He had a colonoscopy with polypectomy in August of 2024 that showed diverticulosis, internal hemorrhoids, and colon polyp pathology showed tubular adenomas. In the ED, he was afebrile with mild tachycardia of 107. Blood pressure stable. It appears he was put on 2 L of oxygen after having O2 sats in the 80s. Labs showed a white blood cell count of 21,300, sodium 136, potassium 3.1. UA negative. CT scan of the abdomen and pelvis showed sigmoid diverticulitis with likely microperforation with small amount of likely reactive ascites in minimal extraluminal gas in the mesentery immediately adjacent to the diverticulitis, no abscess. Also seen is likely reactive edematous wall thickening at the sigmoid colon as well as involving an adjacent segment of small bowel. He was admitted to the hospitalist service and is currently on IV ceftriaxone and Flagyl. His potassium and magnesium are low this morning and being replaced. He is now seen in consultation. No previous abdominal surgery. Review of Systems 2 Review of Systems: All systems reviewed & are unremarkable except as noted in HPI and below PMFSH Past Medical History Medical History Chronic obstructive pulmonary disease Tobacco dependence Alcohol abuse Throat cancer status post radiation, considered to be in remission Hepatitis C has completed treatment Hypertension Adenomatous colon polyp Depression Surgical History Surgical History History of colonoscopy with polypectomy Family History Family History Mother Patient's mother is in good health Sibling Patient's sister is in good health Patient's brother is in good health Father Family history of malignant neoplasm Patient's father is Social History Social History Social History: Surrogate medical decision maker: Danikakat Bella, niece. Code status: Do not resuscitate. Smoking packs per day: 1 Smoking cigarettes per day: 20.0 Years smoked: 45 Smoking pack-years: 45.00 Smoking status: Current every day smoker Tobacco type: cigarettes Alcohol intake: current Drinks per week: 60 Alcohol use details: 4 drinks a day liquor Substance use: never Do You Feel Safe in your Home?: Yes Lack of Transportation: No Lack of Food: Never True Current Housing: I Have Housing Concerned About Future Housing: No Difficulty Paying Gas/Electric Bills: No Difficulty Paying for Meds: No Currently Unemployed: No Education: Decline to Answer Difficulty w/ Childcare or Family Care: No Living arrangements: with roommate(s) Occupation/Education: unemployed Additional occupation/education comments: on disability Spiritual care concerns: No Meds Home Medications and Allergies Home Medications ?Medication ?Instructions ?Recorded ?Confirmed ?Type atorvastatin 40 mg tablet 40 mg PO DAILY 04/05/21 10/24/24 History lisinopril 20 1 tablet PO DAILY 04/05/21 10/24/24 History mg-hydrochlorothiazide 12.5 mg tablet albuterol sulfate 90 mcg/actuation 1 puff inhalation Q4H PRN SOB 07/04/21 10/24/24 History aerosol inhaler fluticasone fur. 200 mcg-umeclid 1 ea inhalation DAILY 07/31/24 10/24/24 History 62.5 mcg-vilant 25 mcg inhalat.powder (Trelegy Ellipta) mirabegron 50 mg tablet,extended 50 mg PO DAILY 07/31/24 10/24/24 History release 24 hr (Myrbetriq) montelukast 10 mg tablet 10 mg PO HS 07/31/24 10/24/24 History oxybutynin chloride 10 mg 10 mg PO DAILY 07/31/24 10/24/24 History tablet,extended release 24 hr sertraline 100 mg tablet 100 mg PO HS 07/31/24 10/24/24 History tamsulosin 0.4 mg capsule 0.4 mg PO DAILY 07/31/24 10/24/24 History trazodone 50 mg tablet 100 mg PO HS 07/31/24 10/24/24 History fluticasone propionate 50 1 spray intranasal DAILY PRN 10/24/24 10/24/24 History mcg/actuation nasal allergy symptoms spray,suspension (24 Hour Allergy Relief) Allergies Allergy/AdvReac Type Severity Reaction Status Date / Time No Known Allergies Allergy Verified 10/24/24 17:36 Vital Signs Vital Signs - 24 hr 10/24/24 14:54 10/24/24 18:30 10/24/24 18:31 Temperature 97.9 F Pulse Rate 107 H 112 H Respiratory Rate 20 18 Blood Pressure 129/87 156/85 H Pulse Oximetry 97 89 L 93 Oxygen Delivery Room Air Oxygen Flow Rate 10/24/24 18:32 10/24/24 22:00 10/25/24 00:00 Temperature 98.2 F 97.5 F L Pulse Rate 111 H 88 Respiratory Rate 18 20 Blood Pressure 118/63 114/64 Pulse Oximetry 93 97 96 Oxygen Delivery Nasal Cannula Oxygen Flow Rate 2 10/25/24 05:25 10/25/24 08:00 10/25/24 08:00 Temperature 98.3 F 97.7 F Pulse Rate 91 86 Respiratory Rate 18 18 Blood Pressure 111/72 141/68 H 141/68 H Pulse Oximetry 99 100 Oxygen Delivery Oxygen Flow Rate 10/25/24 08:00 10/25/24 08:50 Temperature Pulse Rate Respiratory Rate Blood Pressure Pulse Oximetry 95 95 Oxygen Delivery Nasal Cannula Nasal Cannula Oxygen Flow Rate 2 2 Exam 2 Const: General: comfortable and no acute distress Nutritional Appearance: a verage body habitus Orientation/consciousness: patient oriented x3 HENMT: Head: normocephalic and atraumatic Ears: hearing grossly normal bilaterally Mouth: Yes moist mucous membranes Eyes: General: appearance normal, both eyes and all related structures P upils: Equal, round and reactive pupils present Neck: Neck: normal visual inspection and full ROM Resp: Effort & Inspection: Actively coughing dry, not labored and no respiratory distress Auscultation: wheezes expiratory wheezes and throughout Cardio: Rate: regular rate Rhythm: regular rhythm Peripheral pulses: P eripheral pulses 2+ throughout GI: Inspection: distended and no scars GI Palp: Yes Soft to palpation, Yes Tenderness to palpation present (GI) (diffusely tender), Yes Guarding due to palpation present (GI), Yes No hepatosplenomegaly present, Yes Hernia present umbilical < 3 cm (soft) and Yes Rebound tenderness present Auscultation: H ypoactive bowel sounds present Skin: General skin exam: normal color Neuro: General: moves all extremities and no focal motor deficits Speech: n ormal speech Motor exam (neuro): 5/5 motor strength present throughout Extrem: General: normal to inspection and no edema Psych: Mental Status: mental status grossly normal Attitude: cooperative Insight: Good insight present (Psych) Judgement: Good judgement present (Psych) Results Labs 10/25/24 06:05 10/25/24 06:05 Labs: Abnormal lab results 10/24/24 10/25/24 Range/Units 15:26 06:05 WBC 21.3 H 22.9 H (4.5-10.0) K/mm3 RBC 4.43 L 3.38 L (4.6-6.20) M/mm3 Hgb 11.0 L D (14.0-18.0) g/dL Hct 41.5 L 32.3 L (42.0-52.0) % Neut % (Auto) 88.8 H (45.5-73.1) % Lymph % (Auto) 8.9 L (18.3-44.2) % [place] % (Auto) 1.6 L (2.6-8.5) % Abs Immat Gran (auto) 0.09 H (0.00-0.031) K/mm3 Absolute Neuts (auto) 18.9 H (1.3-6.7) K/mm3 Sodium 136 L 133 L (137-145) mmol/L Potassium 3.1 L 3.0 L (3.4-5.0) mmol/L Chloride 95 L (98-107) mmol/L Carbon Dioxide 33 H (22-30) mmol/L Anion Gap 2 L (4-12) mmol/L Creatinine 0.65 L 0.55 L (0.7-1.3) mg/dL Glucose 128 H 123 H (65-110) mg/dL Calcium 7.8 L (8.4-10.2) mg/dL Magnesium 1.5 L (1.6-2.3) mg/dL Alkaline Phosphatase 137 H (38-126) U/L Total Protein 6.0 L (6.3-8.2) g/dL Albumin 2.8 L (3.5-5.1) g/dL Lipase 20 L (23-300) U/L Diabetes panel 10/24/24 10/25/24 Range/Units 15:26 06:05 Sodium 136 L 133 L (137-145) mmol/L Potassium 3.1 L 3.0 L (3.4-5.0) mmol/L Chloride 95 L 101 (98-107) mmol/L Carbon Dioxide 33 H 30 (22-30) mmol/L BUN 12 9 (9-20) mg/dL Creatinine 0.65 L 0.55 L (0.7-1.3) mg/dL Glucose 128 H 123 H (65-110) mg/dL Calcium 9.0 7.8 L (8.4-10.2) mg/dL AST 28 26 (17-59) U/L ALT 28 22 (6-50) U/L Alkaline Phosphatase 137 H 89 (38-126) U/L Total Protein 7.0 6.0 L (6.3-8.2) g/dL Albumin 4.0 2.8 L (3.5-5.1) g/dL Calcium panel 10/24/24 10/25/24 Range/Units 15:26 06:05 Calcium 9.0 7.8 L (8.4-10.2) mg/dL Albumin 4.0 2.8 L (3.5-5.1) g/dL Pituitary panel 10/24/24 10/25/24 Range/Units 15:26 06:05 Sodium 136 L 133 L (137-145) mmol/L Potassium 3.1 L 3.0 L (3.4-5.0) mmol/L Chloride 95 L 101 (98-107) mmol/L Carbon Dioxide 33 H 30 (22-30) mmol/L BUN 12 9 (9-20) mg/dL Creatinine 0.65 L 0.55 L (0.7-1.3) mg/dL Glucose 128 H 123 H (65-110) mg/dL Calcium 9.0 7.8 L (8.4-10.2) mg/dL Adrenal panel 10/24/24 10/25/24 Range/Units 15:26 06:05 Sodium 136 L 133 L (137-145) mmol/L Potassium 3.1 L 3.0 L (3.4-5.0) mmol/L Chloride 95 L 101 (98-107) mmol/L Carbon Dioxide 33 H 30 (22-30) mmol/L BUN 12 9 (9-20) mg/dL Creatinine 0.65 L 0.55 L (0.7-1.3) mg/dL Glucose 128 H 123 H (65-110) mg/dL Calcium 9.0 7.8 L (8.4-10.2) mg/dL Total Bilirubin 0.9 0.6 (0.2-1.3) mg/dL AST 28 26 (17-59) U/L ALT 28 22 (6-50) U/L Alkaline Phosphatase 137 H 89 (38-126) U/L Total Protein 7.0 6.0 L (6.3-8.2) g/dL Albumin 4.0 2.8 L (3.5-5.1) g/dL All other labs normal. Imaging Additional studies: ITS Impressions Abdomen/Pelvis CT 10/24/24 16:41 IMPRESSION: 1. Sigmoid diverticulitis with likely microperforation with small amount of likely reactive ascites and minimal extraluminal gas in the mesentery immediately adjacent to the diverticulitis. No abscess. 2. Likely reactive edematous wall thickening at the sigmoid colon as well as involving and adjacent short segment of small bowel.
[2024-10-25] MEDS: POTASSIUM CHLORIDE INJ 40 MEQ in SODIUM CHLORIDE 0.9% IV 500 ML 100 MEQ IVPB (10:30)
[2024-10-25 10:31] LABS: Lactic Acid Reflex 1.1 mmol/L (0.7-2.0)
--- NOTE | 2024-10-25 11:30 | P.PNIM_ITS ---
Progress Note: A&P Assessment and Plan (1) Diverticulitis of intestine with perforation without abscess: Code(s): K57.80 - Diverticulitis of intestine, part unspecified, with perforation and abscess without bleeding Status: Acute Assessment and Plan: * 10/24/24 CT of abdomen showed: IMPRESSION: 1. Sigmoid diverticulitis with likely microperforation with small amount of likely reactive ascites and minimal extraluminal gas in the mesentery immediately adjacent to the diverticulitis. No abscess. 2. Likely reactive edematous wall thickening at the sigmoid colon as well as involving and adjacent short segment of small bowel. * Receiving Ceftriaxone 1 gram IVPB q 12 and Metronidazole 500 mg IVPB q 8. * NS@ 85 ml/hr. * Surgery consult. (2) Hypertension: Code(s): I10 - Essential (primary) hypertension Status: Acute Assessment and Plan: * Blood pressure 138/85 * Hold Lisinopril/HCTZ while NPO and some blood pressures softer. (3) Chronic obstructive pulmonary disease: Code(s): J44.9 - Chronic obstructive pulmonary disease, unspecified Status: Acute Assessment and Plan: * Continue Trelegy 200-62.5-25 mcg 1 puff daily and Albuterol 1 puff q4 PRN. * Monitor oxygen needs and taper to keep Sa02 above 92%. (4) Hypokalemia: Code(s): E87.6 - Hypokalemia Status: Acute Assessment and Plan: * Potassium 3.0 * Potassium 40 meq IVPB x 1 given. * Monitor labs (5) Hypomagnesemia: Code(s): E83.42 - Hypomagnesemia Status: Acute Assessment and Plan: * Magnesium 1.5 * Magnesium Sulfate 2 gram IVPB x1. * Monitor labs. (6) Alcohol abuse: Code(s): F10.10 - Alcohol abuse, uncomplicated Status: Acute Assessment and Plan: * CIWA protocol (7) Tobacco abuse: Code(s): Z72.0 - Tobacco use Status: Acute Assessment and Plan: * Nicotine patch. Subjective Date/time seen: 10/25/24 11:30 Interval history: Patient reports pain in abdomen is a 4 , constant, and aching. Patient reports shortness of breath on exertion. Patient denies chest pain, palpitations, headache, dizziness, nausea, or vomiting. Surgery following. Review of Systems Review of Systems: All systems reviewed & are unremarkable except as noted in HPI and below Exam Const: General: no acute distress and uncomfortable Resp: Auscultation: wheezes expiratory wheezes and diminished lung sounds Cardio: Rate: regular rate Rhythm: regular rhythm GI: Inspection: distended GI Palp: Yes Soft to palpation and Yes Tenderness to palpation present (GI) Other: Hypoactive bowel sounds Neuro: Speech: normal speech Extrem: General: no pedal edema Psych: Mental Status: mental status grossly normal Affect: normal affect Objective Data Vital Signs Vital Signs: Vital Signs - 24 hr 10/24/24 14:54 10/24/24 18:30 10/24/24 18:31 Temperature 97.9 F Pulse Rate 107 H 112 H Respiratory Rate 20 18 Blood Pressure 129/87 156/85 H Pulse Oximetry 97 89 L 93 Oxygen Delivery Room Air Oxygen Flow Rate 10/24/24 18:32 10/24/24 22:00 10/25/24 00:00 Temperature 98.2 F 97.5 F L Pulse Rate 111 H 88 Respiratory Rate 18 20 Blood Pressure 118/63 114/64 Pulse Oximetry 93 97 96 Oxygen Delivery Nasal Cannula Oxygen Flow Rate 2 10/25/24 05:25 10/25/24 08:00 10/25/24 08:00 Temperature 98.3 F 97.7 F Pulse Rate 91 86 Respiratory Rate 18 18 Blood Pressure 111/72 141/68 H 141/68 H Pulse Oximetry 99 100 Oxygen Delivery Oxygen Flow Rate 10/25/24 08:00 10/25/24 08:50 Temperature Pulse Rate Respiratory Rate Blood Pressure Pulse Oximetry 95 95 Oxygen Delivery Nasal Cannula Nasal Cannula Oxygen Flow Rate 2 2 Intake/Output Intake/Output: Intake & Output 10/22/24 10/23/24 10/24/24 10/25/24 23:59 23:59 23:59 23:59 Intake Total 1050 250 Output Total 250 Balance 1050 0 Meds/Results Medications: Active Medications Generic Name Dose Route Start Last Admin Trade Name Freq PRN Reason Stop Dose Admin Albuterol 1 puff 10/24/24 22:50 Albuterol Sulfate (*Sp) Aerosol 1 Puff INHALATION Q4H PRN Shortness Of Breath Chlordiazepoxide HCl 25 mg 10/24/24 22:37 Chlordiazepoxide (*Crx) 25 Mg Capsule PO Q8H PRN withdrawal symptoms & CIWA < 8 Fluticasone Propionate 1 spray 10/24/24 22:50 Fluticasone Propionate 0.05% Na Spr 16 Gm Btl (*Bkc) NASAL DAILY PRN allergy symptoms Fluticasone/Umeclidinium/Vilanterol 1 puff 10/25/24 09:00 10/25/24 08:48 Fluticasone/Umeclidin/Vilanter 200-62.5-25 Mcg Ellipta INHALATION 1 puff DAILY MARIA ANTONIA Administration Hydromorphone HCl 0.5 mg 10/24/24 22:37 10/25/24 07:58 Hydromorphone Hcl Inj (*Crx) 1 Mg/Ml Syr IV PUSH 0.5 mg Q3H PRN Administration Pain Rated 4-6 Hydromorphone HCl 1 mg 10/25/24 10:08 Hydromorphone Hcl Inj (*Crx) 1 Mg/Ml Syr IV PUSH Q3H PRN Pain Rated 7-10 Sodium Chloride 1,000 mls @ 85 mls/hr 10/24/24 18:15 10/24/24 20:15 Normal Saline Iv IV CONT 85 mls/hr .[id number] MARIA ANTONIA Administration Metronidazole 500 mg in 100 mls @ 100 mls/hr 10/25/24 00:00 10/25/24 08:58 Flagyl 500 Mg/Iso Soln 100 Ml IVPB Infused Q8H MARIA ANTONIA Infusion Ceftriaxone Sodium 1 gm in 50 mls @ 100 mls/hr 10/25/24 09:00 10/25/24 08:28 Rocephin 1 Gm/Ns 50 Ml IVPB Infused Q12HR MARIA ANTONIA Infusion Potassium Chloride 40 meq/ 520 mls @ 130 mls/hr 10/25/24 08:08 10/25/24 10:30 Sodium Chloride IVPB 10/25/24 12:07 100 mls/hr ONCE ONE Administration Ibuprofen 800 mg in 200 mls @ 400 mls/hr 10/25/24 11:20 Caldolor 800 Mg/200 Ml IVPB 10/26/24 05:49 Q6H MARIA ANTONIA Lorazepam 1 mg 10/24/24 22:37 Lorazepam Inj (*Crx) 2 Mg/Ml Vial IV PUSH Q2H PRN CIWA 8-15 Lorazepam 2 mg 10/24/24 22:37 Lorazepam Inj (*Crx) 2 Mg/Ml Vial IV PUSH Q2H PRN CIWA > 15 Nicotine 1 patch 10/24/24 22:40 10/25/24 07:59 Nicotine (*Pbkc) 21 Mg Patch TRANSDERM Not Given DAILY MARIA ANTONIA Ondansetron HCl 4 mg 10/24/24 18:12 Ondansetron Inj 4 Mg/2 Ml Vial IV PUSH Q4H PRN Nausea Thiamine HCl 100 mg 10/25/24 09:00 10/25/24 07:58 Thiamine Hcl 200 Mg/2 Ml Vial IV PUSH 100 mg QAM MARIA ANTONIA Administration Trazodone HCl 50 mg 10/24/24 23:50 10/24/24 23:53 Trazodone Hcl 50 Mg Tablet PO 50 mg HS MARIA ANTONIA Administration Radiology Results: ITS Impressions Abdomen/Pelvis CT 10/24/24 16:41 IMPRESSION: 1. Sigmoid diverticulitis with likely microperforation with small amount of likely reactive ascites and minimal extraluminal gas in the mesentery immediately adjacent to the diverticulitis. No abscess. 2. Likely reactive edematous wall thickening at the sigmoid colon as well as involving and adjacent short segment of small bowel. Labs Labs: Laboratory Results - last 24 hr 10/24/24 10/24/24 10/25/24 15:26 16:52 06:05 WBC 21.3 H 22.9 H RBC 4.43 L 3.38 L Hgb 14.3 11.0 L D Hct 41.5 L 32.3 L MCV 93.7 95.6 MCH 32.3 32.5 MCHC 34.5 34.1 RDW 13.0 13.0 Plt Count 301 221 MPV 8.5 9.0 Immature Gran % (Auto) 0.4 Neut % (Auto) 88.8 H Lymph % (Auto) 8.9 L [place] % (Auto) 1.6 L Eos % (Auto) 0.1 Baso % (Auto) 0.2 Lymph # (Auto) 1.90 [place] # (Auto) 0.3 Eos # (Auto) 0.0 Baso # (Auto) 0.0 Abs Immat Gran (auto) 0.09 H Absolute Neuts (auto) 18.9 H Absolute Nucleated RBC 0.000 Nucleated RBC % 0.0 Sodium 136 L 133 L Potassium 3.1 L 3.0 L Chloride 95 L 101 Carbon Dioxide 33 H 30 Anion Gap 8 2 L BUN 12 9 Creatinine 0.65 L 0.55 L Estim Creat Clear Calc 96 111 Estimated GFR > 60 > 60 Glucose 128 H 123 H Lactic Acid Calcium 9.0 7.8 L Magnesium 1.5 L Total Bilirubin 0.9 0.6 AST 28 26 ALT 28 22 Alkaline Phosphatase 137 H 89 Total Protein 7.0 6.0 L Albumin 4.0 2.8 L Lipase 20 L Urine Color Yellow Urine Appearance Clear Urine pH 6.0 Ur Specific [place] 1.019 Urine Protein Negative Urine Glucose (UA) Negative Urine Ketones Negative Ur Blood (Man) Negative Urine Nitrate Negative Urine Bilirubin Negative Urine Urobilinogen 1.0 Leukocyte Esterase Rfl Negative 10/25/24 10:14 WBC RBC Hgb Hct MCV MCH MCHC RDW Plt Count MPV Immature Gran % (Auto) Neut % (Auto) Lymph % (Auto) [place] % (Auto) Eos % (Auto) Baso % (Auto) Lymph # (Auto) [place] # (Auto) Eos # (Auto) Baso # (Auto) Abs Immat Gran (auto) Absolute Neuts (auto) Absolute Nucleated RBC Nucleated RBC % Sodium Potassium Chloride Carbon Dioxide Anion Gap BUN Creatinine Estim Creat Clear Calc Estimated GFR Glucose Lactic Acid 1.1 Calcium Magnesium Total Bilirubin AST ALT Alkaline Phosphatase Total Protein Albumin Lipase Urine Color Urine Appearance Urine pH Ur Specific [place] Urine Protein Urine Glucose (UA) Urine Ketones Ur Blood (Man) Urine Nitrate Urine Bilirubin Urine Urobilinogen Leukocyte Esterase Rfl Quality VTE Prophylaxis VTE prophylaxis: pharmacologic ordered
[2024-10-25] MEDS: ATORVASTATIN 40 MG TABLET PO (11:55)
[2024-10-25] MEDS: oxyBUTYnin CHLORIDE XL 5 MG TAB.ER.24 10 MG PO (11:55)
[2024-10-25] MEDS: TAMSULOSIN HCL 0.4 MG CAPSULE PO (11:55)
[2024-10-25] MEDS: IBUPROFEN IV 800 MG/200 ML 800 MG/200 ML BAG 400 MG IVPB ×2 (11:55→16:54)
[2024-10-25] MEDS: MIRABEGRON 50 MG ER TABLET PO (12:25)
[2024-10-25] MEDS: SODIUM CHLORIDE 0.9% IV 1,000 ML 85 ML IV CONT (12:49)
[2024-10-25] MEDS: HYDROmorphone HCL INJ (*CRX) 1 MG/ML SYR IV PUSH ×2 (14:39→19:53)
[2024-10-25] MEDS: NICOTINE (*PBKC) 21 MG PATCH 1 PATCH TRANSDERM (15:55)
[2024-10-25] MEDS: SERTRALINE HCL 50 MG TABLET 100 MG PO (19:53)
[2024-10-25] MEDS: traZODone HCL 50 MG TABLET PO (19:53)
[2024-10-25] MEDS: MONTELUKAST SODIUM 10 MG TABLET PO (21:03)
[2024-10-26] VITALS (12 sets, daily range): BP systolic 108–145; BP diastolic 59–85; PULSE 70–96; RESP 16–20; TEMP 35.6–36.7; O2SAT 93–97
[2024-10-26] MEDS: IBUPROFEN IV 800 MG/200 ML 800 MG/200 ML BAG 400 MG IVPB ×2 (00:42→06:32)
[2024-10-26] MEDS: metroNIDAZOLE 500 MG/ISO 100ML 500 MG/100 ML BAG 100 MG IVPB ×3 (00:42→15:19)
[2024-10-26] MEDS: SODIUM CHLORIDE 0.9% IV 1,000 ML 85 ML IV CONT ×2 (03:48→20:34)
[2024-10-26 06:17] LABS: Basophils Percent Auto 0.2 % (0.2-1.2); Eosinophils Absolute Auto 0.1 K/mm3 (0-0.3); Eosinophils Percent Auto 0.9 % (0-4.4); Hematocrit 31.2 % (42.0-52.0); Hemoglobin 10.5 g/dL (14.0-18.0); Immature Granulocyte Absolute 0.09 K/mm3 (0.00-0.031); Immature Granulocyte Percent A 0.6 % (0-0.5); Lymphocytes Absolute Auto 0.62 K/mm3 (0.9-3.2); Lymphocytes Percent Auto 4.4 % (18.3-44.2); Mean Corpuscular HGB Conc 33.7 g/dl (32-36); Mean Corpuscular Hemoglobin 32.5 pg (26-34); Mean Corpuscular Volume 96.6 fl (80-100); Mean Platelet Volume 9.2 fl (7.4-10.4); Monocytes Absolute Auto 0.3 K/mm3 (0.1-0.6); Monocytes Percent Auto 2.4 % (2.6-8.5); Neutrophils Absolute Auto 12.8 K/mm3 (1.3-6.7); Neutrophils Percent Auto 91.5 % (45.5-73.1); Platelet Count Result 233 k/mm3 (150-375); Red Blood Count 3.23 M/mm3 (4.6-6.20)
[2024-10-26 06:26] LABS: Alanine Aminotransferase 17 U/L (6-50); Albumin Level 2.6 g/dL (3.5-5.1); Alkaline Phosphatase 93 U/L (38-126); Anion Gap 4 mmol/L (4-12); Aspartate Amino Transferase 22 U/L (17-59); Bilirubin,Total 0.5 mg/dL (0.2-1.3); Blood Urea Nitrogen 9 mg/dL (9-20); Calcium 7.4 mg/dL (8.4-10.2); Carbon Dioxide 28 mmol/L (22-30); Chloride 103 mmol/L (98-107); Estimated CRCL calculation 113 ml/min; Estimated Glomerular Filt Rate > 60; Glucose 83 mg/dL (65-110); Magnesium 1.8 mg/dL (1.6-2.3); Potassium 3.1 mmol/L (3.4-5.0); Sodium 135 mmol/L (137-145)
[2024-10-26] MEDS: MIRABEGRON 50 MG ER TABLET PO (08:01)
[2024-10-26] MEDS: oxyBUTYnin CHLORIDE XL 5 MG TAB.ER.24 10 MG PO (08:01)
[2024-10-26] MEDS: ATORVASTATIN 40 MG TABLET PO (08:01)
[2024-10-26] MEDS: TAMSULOSIN HCL 0.4 MG CAPSULE PO (08:01)
[2024-10-26] MEDS: HYDROmorphone HCL INJ (*CRX) 1 MG/ML SYR IV PUSH (08:01)
[2024-10-26] MEDS: NICOTINE (*PBKC) 21 MG PATCH 1 PATCH TRANSDERM (08:01)
[2024-10-26] MEDS: THIAMINE HCL 200 MG/2 ML VIAL 100 MG IV PUSH (08:02)
[2024-10-26] MEDS: POTASSIUM CHLORIDE INJ 40 MEQ in SODIUM CHLORIDE 0.9% IV 500 ML 100 MEQ IVPB (08:02)
[2024-10-26] MEDS: FLUTICASONE/UMECLIDIN/VILANTER 200-62.5-25 MCG ELLIPTA 1 PUFF INHALATION (09:21)
--- NOTE | 2024-10-26 10:57 | PM.PNGS ---
Progress Note: A&P Assessment and Plan (1) Diverticulitis of intestine with perforation without abscess: Code(s): K57.80 - Diverticulitis of intestine, part unspecified, with perforation and abscess without bleeding Status: Acute Assessment and Plan: Improving with conservative management. WBC trending down. Abdominal pain and exam improved today. Will advance to clear liquids Continue IV antibiotics Repeat labs tomorrow (2) COPD (chronic obstructive pulmonary disease): Code(s): J44.9 - Chronic obstructive pulmonary disease, unspecified Status: Acute (3) PAD (peripheral artery disease): Code(s): I73.9 - Peripheral vascular disease, unspecified Status: Acute (4) Tobacco abuse: Code(s): Z72.0 - Tobacco use Status: Acute (5) Alcohol abuse: Code(s): F10.10 - Alcohol abuse, uncomplicated Status: Acute Plan I have discussed the patient's case and plan of care with Dr. Ball. Subjective Subjective Date/Time Seen: 10/26/24 10:57 Patient reports: no new complaints, voiding w/o difficulty, flatus, no bowel movement and afebrile Interval history: Patient doing well this morning. He reports his abdominal pain is much better today. Denies any nausea or vomiting. Reports flatus but no BM yet. WBC down to 14k. Review of Systems Review of Systems: All systems reviewed & are unremarkable except as noted in HPI and below Exam Const: General: comfortable and no acute distress Orientation/consciousness: patient oriented x3 GI: Inspection: other (mildly distended) GI Palp: Yes Soft to palpation, Yes Tenderness to palpation present (GI) (tenderness across the lower abdomen, less tender today), Yes Guarding due to palpation present (GI) (voluntary guarding in LLQ) and No Rebound tenderness present Auscultation: normal bowel sounds Objective Data Vital Signs Vital Signs: Vital Signs - 24 hr 10/25/24 12:00 10/25/24 16:00 10/25/24 19:56 Temperature 96.7 F L 96.9 F L 98.6 F Pulse Rate 82 78 91 Pulse Rate [NIBP] Respiratory Rate 18 18 17 Blood Pressure 138/85 122/69 116/76 Pulse Oximetry 99 96 98 Oxygen Delivery Oxygen Flow Rate 10/25/24 20:00 10/25/24 20:00 10/26/24 00:00 Temperature Pulse Rate Pulse Rate [NIBP] 91 83 Respiratory Rate Blood Pressure 116/76 Pulse Oximetry 98 Oxygen Delivery Nasal Cannula Oxygen Flow Rate 1 10/26/24 00:05 10/26/24 02:27 10/26/24 04:00 Temperature 98.1 F Pulse Rate 70 Pulse Rate [NIBP] 88 Respiratory Rate 17 Blood Pressure 135/59 L Pulse Oximetry 96 Oxygen Delivery Room Air Oxygen Flow Rate 10/26/24 04:03 10/26/24 08:00 10/26/24 08:00 Temperature 97.1 F L 97.3 F L Pulse Rate 78 88 Pulse Rate [NIBP] Respiratory Rate 16 18 Blood Pressure 108/60 128/81 Pulse Oximetry 93 94 Oxygen Delivery Room Air Oxygen Flow Rate 10/26/24 09:21 10/26/24 09:21 Temperature Pulse Rate 96 96 Pulse Rate [NIBP] Respiratory Rate 20 20 Blood Pressure Pulse Oximetry 95 Oxygen Delivery Nasal Cannula Oxygen Flow Rate 2 Intake/Output Intake/Output: Intake & Output 10/23/24 10/24/24 10/25/24 10/26/24 23:59 23:59 23:59 23:59 Intake Total 1050 1800 1650 Output Total 700 700 Balance 1050 1100 950 Meds/Results Medications: Active Medications Generic Name Dose Route Start Last Admin Trade Name Freq PRN Reason Stop Dose Admin Albuterol 1 puff 10/24/24 22:50 Albuterol Sulfate (*Sp) Aerosol 1 Puff INHALATION Q4H PRN Shortness Of Breath Atorvastatin Calcium 40 mg 10/25/24 12:00 10/26/24 08:01 Atorvastatin 40 Mg Tablet PO 40 mg DAILY MARIA ANTONIA Administration Chlordiazepoxide HCl 25 mg 10/24/24 22:37 Chlordiazepoxide (*Crx) 25 Mg Capsule PO Q8H PRN withdrawal symptoms & CIWA < 8 Fluticasone Propionate 1 spray 10/24/24 22:50 Fluticasone Propionate 0.05% Na Spr 16 Gm Btl (*Bkc) NASAL DAILY PRN allergy symptoms Fluticasone/Umeclidinium/Vilanterol 1 puff 10/25/24 09:00 10/26/24 09:21 Fluticasone/Umeclidin/Vilanter 200-62.5-25 Mcg Ellipta INHALATION 1 puff DAILY MARIA ANTONIA Administration Hydromorphone HCl 0.5 mg 10/24/24 22:37 10/25/24 07:58 Hydromorphone Hcl Inj (*Crx) 1 Mg/Ml Syr IV PUSH 0.5 mg Q3H PRN Administration Pain Rated 4-6 Hydromorphone HCl 1 mg 10/25/24 10:08 10/26/24 08:01 Hydromorphone Hcl Inj (*Crx) 1 Mg/Ml Syr IV PUSH 1 mg Q3H PRN Administration Pain Rated 7-10 Sodium Chloride 1,000 mls @ 85 mls/hr 10/24/24 18:15 10/26/24 04:24 Normal Saline Iv IV CONT Not Given .[id number] MARIA ANTONIA Metronidazole 500 mg in 100 mls @ 100 mls/hr 10/25/24 00:00 10/26/24 09:02 Flagyl 500 Mg/Iso Soln 100 Ml IVPB Infused Q8H MARIA ANTONIA Infusion Ceftriaxone Sodium 1 gm in 50 mls @ 100 mls/hr 10/25/24 09:00 10/26/24 08:32 Rocephin 1 Gm/Ns 50 Ml IVPB Infused Q12HR MARIA ANTONIA Infusion Potassium Chloride 40 meq/ 520 mls @ 130 mls/hr 10/26/24 08:00 10/26/24 08:02 Sodium Chloride IVPB 10/26/24 11:59 100 mls/hr ONCE ONE Administration Lorazepam 1 mg 10/24/24 22:37 Lorazepam Inj (*Crx) 2 Mg/Ml Vial IV PUSH Q2H PRN CIWA 8-15 Lorazepam 2 mg 10/24/24 22:37 Lorazepam Inj (*Crx) 2 Mg/Ml Vial IV PUSH Q2H PRN CIWA > 15 Mirabegron 50 mg 10/25/24 13:00 10/26/24 08:01 Mirabegron 50 Mg Er Tablet PO 50 mg DAILY MARIA ANTONIA Administration Montelukast Sodium 10 mg 10/25/24 21:00 10/25/24 21:03 Montelukast Sodium 10 Mg Tablet PO 10 mg HS MARIA ANTONIA Administration Nicotine 1 patch 10/24/24 22:40 10/26/24 08:01 Nicotine (*Pbkc) 21 Mg Patch TRANSDERM 1 patch DAILY MARIA ANTONIA Administration Ondansetron HCl 4 mg 10/24/24 18:12 Ondansetron Inj 4 Mg/2 Ml Vial IV PUSH Q4H PRN Nausea Oxybutynin Chloride 10 mg 10/25/24 12:00 10/26/24 08:01 Oxybutynin Chloride Xl 5 Mg Tab.Er.24 PO 10 mg DAILY MARIA ANTONIA Administration Sertraline HCl 100 mg 10/25/24 21:00 10/25/24 19:53 Sertraline Hcl 50 Mg Tablet PO 100 mg HS MARIA ANTONIA Administration Tamsulosin HCl 0.4 mg 10/25/24 12:00 10/26/24 08:01 Tamsulosin Hcl 0.4 Mg Capsule PO 0.4 mg DAILY MARIA ANTONIA Administration Thiamine HCl 100 mg 10/25/24 09:00 10/26/24 08:02 Thiamine Hcl 200 Mg/2 Ml Vial IV PUSH 100 mg QAM MARIA ANTONIA Administration Trazodone HCl 50 mg 10/24/24 23:50 10/25/24 19:53 Trazodone Hcl 50 Mg Tablet PO 50 mg HS MARIA ANTONIA Administration Trazodone HCl 100 mg 10/25/24 21:00 10/25/24 19:58 Trazodone Hcl 50 Mg Tablet PO Not Given HS [facility] Radiology Results: ITS Impressions Abdomen/Pelvis CT 10/24/24 16:41 IMPRESSION: 1. Sigmoid diverticulitis with likely microperforation with small amount of likely reactive ascites and minimal extraluminal gas in the mesentery immediately adjacent to the diverticulitis. No abscess. 2. Likely reactive edematous wall thickening at the sigmoid colon as well as involving and adjacent short segment of small bowel. Labs Labs: Laboratory Results - last 24 hr 10/26/24 05:30 WBC 14.0 H RBC 3.23 L Hgb 10.5 L Hct 31.2 L MCV 96.6 MCH 32.5 MCHC 33.7 RDW 13.0 Plt Count 233 MPV 9.2 Immature Gran % (Auto) 0.6 H Neut % (Auto) 91.5 H Lymph % (Auto) 4.4 L [place] % (Auto) 2.4 L Eos % (Auto) 0.9 Baso % (Auto) 0.2 Lymph # (Auto) 0.62 L [place] # (Auto) 0.3 Eos # (Auto) 0.1 Baso # (Auto) 0.0 Abs Immat Gran (auto) 0.09 H Absolute Neuts (auto) 12.8 H Absolute Nucleated RBC 0.000 Nucleated RBC % 0.0 Sodium 135 L Potassium 3.1 L Chloride 103 Carbon Dioxide 28 Anion Gap 4 BUN 9 Creatinine 0.57 L Estim Creat Clear Calc 113 Estimated GFR > 60 Glucose 83 Calcium 7.4 L Magnesium 1.8 Total Bilirubin 0.5 AST 22 ALT 17 Alkaline Phosphatase 93 Total Protein 5.0 L Albumin 2.6 L
--- NOTE | 2024-10-26 11:53 | P.PNIM_ITS ---
Progress Note: A&P Assessment and Plan (1) Diverticulitis of intestine with perforation without abscess: Code(s): K57.80 - Diverticulitis of intestine, part unspecified, with perforation and abscess without bleeding Status: Acute Assessment and Plan: * 10/24/24 CT of abdomen showed: IMPRESSION: 1. Sigmoid diverticulitis with likely microperforation with small amount of likely reactive ascites and minimal extraluminal gas in the mesentery immediately adjacent to the diverticulitis. No abscess. 2. Likely reactive edematous wall thickening at the sigmoid colon as well as involving and adjacent short segment of small bowel. * Receiving Ceftriaxone 1 gram IVPB q 12 and Metronidazole 500 mg IVPB q 8. * NS@ 85 ml/hr. * Surgery following. * Diet advanced to clear liquid today. * Abdominal pain improved. * WBC improved from 22.9>14.0. (2) Hypertension: Code(s): I10 - Essential (primary) hypertension Status: Acute Assessment and Plan: * Blood pressure 128/78. * Will hold Lisinopril/HCTZ for now. Patient is just starting to eat clear liquids today. (3) Chronic obstructive pulmonary disease: Code(s): J44.9 - Chronic obstructive pulmonary disease, unspecified Status: Acute Assessment and Plan: * Continue Trelegy 200-62.5-25 mcg 1 puff daily and Albuterol 1 puff q4 PRN. * Monitor oxygen needs and taper to keep Sa02 above 92%. (4) Hypokalemia: Code(s): E87.6 - Hypokalemia Status: Acute Assessment and Plan: * Potassium 3.1 * Potassium 40 meq IVPB x 1 given. * Monitor labs (5) Hypomagnesemia: Code(s): E83.42 - Hypomagnesemia Status: Acute Assessment and Plan: * Magnesium 1.8, improved. * Monitor labs. (6) Alcohol abuse: Code(s): F10.10 - Alcohol abuse, uncomplicated Status: Acute Assessment and Plan: * CIWA protocol (7) Tobacco abuse: Code(s): Z72.0 - Tobacco use Status: Acute Assessment and Plan: * Nicotine patch. Subjective Date/time seen: 10/26/24 11:53 Interval history: Patient reports feeling better today. Abdominal pain is currently a 2 , consta nt, and dull. Patient denies chest pain, nausea, vomiting, headache, or dizziness. Review of Systems Review of Systems: All systems reviewed & are unremarkable except as noted in HPI and below Exam Const: General: no acute distress and uncomfortable Eyes: Sclera: sclerae normal Resp: Auscultation: wheezes expiratory wheezes and diminished lung sounds Cardio: Rate: regular rate Rhythm: regular rhythm GI: GI Palp: Yes Soft to palpation and Yes Tenderness to palpation present (GI) (across lower abdomen. ) Auscultation: normal bowel sounds Neuro: Speech: normal speech Extrem: General: no pedal edema Psych: Mental Status: mental status grossly normal Affect: normal affect Objective Data Vital Signs Vital Signs: Vital Signs - 24 hr 10/25/24 12:00 10/25/24 16:00 10/25/24 19:56 Temperature 96.7 F L 96.9 F L 98.6 F Pulse Rate 82 78 91 Pulse Rate [NIBP] Respiratory Rate 18 18 17 Blood Pressure 138/85 122/69 116/76 Pulse Oximetry 99 96 98 Oxygen Delivery Oxygen Flow Rate 10/25/24 20:00 10/25/24 20:00 10/26/24 00:00 Temperature Pulse Rate Pulse Rate [NIBP] 91 83 Respiratory Rate Blood Pressure 116/76 Pulse Oximetry 98 Oxygen Delivery Nasal Cannula Oxygen Flow Rate 1 10/26/24 00:05 10/26/24 02:27 10/26/24 04:00 Temperature 98.1 F Pulse Rate 70 Pulse Rate [NIBP] 88 Respiratory Rate 17 Blood Pressure 135/59 L Pulse Oximetry 96 Oxygen Delivery Room Air Oxygen Flow Rate 10/26/24 04:03 10/26/24 08:00 10/26/24 08:00 Temperature 97.1 F L 97.3 F L Pulse Rate 78 88 Pulse Rate [NIBP] Respiratory Rate 16 18 Blood Pressure 108/60 128/81 Pulse Oximetry 93 94 Oxygen Delivery Room Air Oxygen Flow Rate 10/26/24 09:21 10/26/24 09:21 Temperature Pulse Rate 96 96 Pulse Rate [NIBP] Respiratory Rate 20 20 Blood Pressure Pulse Oximetry 95 Oxygen Delivery Nasal Cannula Oxygen Flow Rate 2 Intake/Output Intake/Output: Intake & Output 10/23/24 10/24/24 10/25/24 10/26/24 23:59 23:59 23:59 23:59 Intake Total 1050 1800 1650 Output Total 700 700 Balance 1050 1100 950 Meds/Results Medications: Active Medications Generic Name Dose Route Start Last Admin Trade Name Freq PRN Reason Stop Dose Admin Albuterol 1 puff 10/24/24 22:50 Albuterol Sulfate (*Sp) Aerosol 1 Puff INHALATION Q4H PRN Shortness Of Breath Atorvastatin Calcium 40 mg 10/25/24 12:00 10/26/24 08:01 Atorvastatin 40 Mg Tablet PO 40 mg DAILY MARIA ANTONIA Administration Chlordiazepoxide HCl 25 mg 10/24/24 22:37 Chlordiazepoxide (*Crx) 25 Mg Capsule PO Q8H PRN withdrawal symptoms & CIWA < 8 Fluticasone Propionate 1 spray 10/24/24 22:50 Fluticasone Propionate 0.05% Na Spr 16 Gm Btl (*Bkc) NASAL DAILY PRN allergy symptoms Fluticasone/Umeclidinium/Vilanterol 1 puff 10/25/24 09:00 10/26/24 09:21 Fluticasone/Umeclidin/Vilanter 200-62.5-25 Mcg Ellipta INHALATION 1 puff DAILY MARIA ANTONIA Administration Hydromorphone HCl 0.5 mg 10/24/24 22:37 10/25/24 07:58 Hydromorphone Hcl Inj (*Crx) 1 Mg/Ml Syr IV PUSH 0.5 mg Q3H PRN Administration Pain Rated 4-6 Hydromorphone HCl 1 mg 10/25/24 10:08 10/26/24 08:01 Hydromorphone Hcl Inj (*Crx) 1 Mg/Ml Syr IV PUSH 1 mg Q3H PRN Administration Pain Rated 7-10 Sodium Chloride 1,000 mls @ 85 mls/hr 10/24/24 18:15 10/26/24 04:24 Normal Saline Iv IV CONT Not Given .[id number] MARIA ANTONIA Metronidazole 500 mg in 100 mls @ 100 mls/hr 10/25/24 00:00 10/26/24 09:02 Flagyl 500 Mg/Iso Soln 100 Ml IVPB Infused Q8H MARIA ANTONIA Infusion Ceftriaxone Sodium 1 gm in 50 mls @ 100 mls/hr 10/25/24 09:00 10/26/24 08:32 Rocephin 1 Gm/Ns 50 Ml IVPB Infused Q12HR MARIA ANTONIA Infusion Potassium Chloride 40 meq/ 520 mls @ 130 mls/hr 10/26/24 08:00 10/26/24 08:02 Sodium Chloride IVPB 10/26/24 11:59 100 mls/hr ONCE ONE Administration Ibuprofen 800 mg in 200 mls @ 400 mls/hr 10/26/24 11:30 Caldolor 800 Mg/200 Ml IVPB Q6H PRN Pain Rated 1-3 Lorazepam 1 mg 10/24/24 22:37 Lorazepam Inj (*Crx) 2 Mg/Ml Vial IV PUSH Q2H PRN CIWA 8-15 Lorazepam 2 mg 10/24/24 22:37 Lorazepam Inj (*Crx) 2 Mg/Ml Vial IV PUSH Q2H PRN CIWA > 15 Mirabegron 50 mg 10/25/24 13:00 10/26/24 08:01 Mirabegron 50 Mg Er Tablet PO 50 mg DAILY MARIA ANTONIA Administration Montelukast Sodium 10 mg 10/25/24 21:00 10/25/24 21:03 Montelukast Sodium 10 Mg Tablet PO 10 mg HS MARIA ANTONIA Administration Nicotine 1 patch 10/24/24 22:40 10/26/24 08:01 Nicotine (*Pbkc) 21 Mg Patch TRANSDERM 1 patch DAILY MARIA ANTONIA Administration Ondansetron HCl 4 mg 10/24/24 18:12 Ondansetron Inj 4 Mg/2 Ml Vial IV PUSH Q4H PRN Nausea Oxybutynin Chloride 10 mg 10/25/24 12:00 10/26/24 08:01 Oxybutynin Chloride Xl 5 Mg Tab.Er.24 PO 10 mg DAILY MARIA ANTONIA Administration Sertraline HCl 100 mg 10/25/24 21:00 10/25/24 19:53 Sertraline Hcl 50 Mg Tablet PO 100 mg HS MARIA ANTONIA Administration Tamsulosin HCl 0.4 mg 10/25/24 12:00 10/26/24 08:01 Tamsulosin Hcl 0.4 Mg Capsule PO 0.4 mg DAILY MARIA ANTONIA Administration Thiamine HCl 100 mg 10/25/24 09:00 10/26/24 08:02 Thiamine Hcl 200 Mg/2 Ml Vial IV PUSH 100 mg QAM MARIA ANTONIA Administration Trazodone HCl 50 mg 10/24/24 23:50 10/25/24 19:53 Trazodone Hcl 50 Mg Tablet PO 50 mg HS MARIA ANTONIA Administration Radiology Results: ITS Impressions Abdomen/Pelvis CT 10/24/24 16:41 IMPRESSION: 1. Sigmoid diverticulitis with likely microperforation with small amount of likely reactive ascites and minimal extraluminal gas in the mesentery immediately adjacent to the diverticulitis. No abscess. 2. Likely reactive edematous wall thickening at the sigmoid colon as well as involving and adjacent short segment of small bowel. Labs Labs: Laboratory Results - last 24 hr 10/26/24 05:30 WBC 14.0 H RBC 3.23 L Hgb 10.5 L Hct 31.2 L MCV 96.6 MCH 32.5 MCHC 33.7 RDW 13.0 Plt Count 233 MPV 9.2 Immature Gran % (Auto) 0.6 H Neut % (Auto) 91.5 H Lymph % (Auto) 4.4 L [place] % (Auto) 2.4 L Eos % (Auto) 0.9 Baso % (Auto) 0.2 Lymph # (Auto) 0.62 L [place] # (Auto) 0.3 Eos # (Auto) 0.1 Baso # (Auto) 0.0 Abs Immat Gran (auto) 0.09 H Absolute Neuts (auto) 12.8 H Absolute Nucleated RBC 0.000 Nucleated RBC % 0.0 Sodium 135 L Potassium 3.1 L Chloride 103 Carbon Dioxide 28 Anion Gap 4 BUN 9 Creatinine 0.57 L Estim Creat Clear Calc 113 Estimated GFR > 60 Glucose 83 Calcium 7.4 L Magnesium 1.8 Total Bilirubin 0.5 AST 22 ALT 17 Alkaline Phosphatase 93 Total Protein 5.0 L Albumin 2.6 L Quality VTE Prophylaxis VTE prophylaxis: pharmacologic ordered
[2024-10-26] MEDS: HYDROmorphone HCL INJ (*CRX) 1 MG/ML SYR 0.5 MG IV PUSH ×2 (15:19→20:51)
[2024-10-26] MEDS: MONTELUKAST SODIUM 10 MG TABLET PO (20:35)
[2024-10-26] MEDS: SERTRALINE HCL 50 MG TABLET 100 MG PO (20:35)
[2024-10-26] MEDS: traZODone HCL 50 MG TABLET PO (20:35)
[2024-10-27] VITALS (8 sets, daily range): BP systolic 142–159; BP diastolic 70–87; PULSE 80–95; RESP 16–20; TEMP 35.8–37.4; O2SAT 94–97
[2024-10-27] MEDS: metroNIDAZOLE 500 MG/ISO 100ML 500 MG/100 ML BAG 100 MG IVPB ×4 (00:11→23:04)
[2024-10-27] MEDS: ALBUTEROL SULFATE (*SP) AEROSOL 1 PUFF INHALATION (05:20)
[2024-10-27 06:49] LABS: Basophils Percent Auto 0.2 % (0.2-1.2); Eosinophils Absolute Auto 0.2 K/mm3 (0-0.3); Eosinophils Percent Auto 1.8 % (0-4.4); Hematocrit 31.7 % (42.0-52.0); Hemoglobin 10.7 g/dL (14.0-18.0); Immature Granulocyte Absolute 0.04 K/mm3 (0.00-0.031); Immature Granulocyte Percent A 0.4 % (0-0.5); Lymphocytes Absolute Auto 0.64 K/mm3 (0.9-3.2); Lymphocytes Percent Auto 6.2 % (18.3-44.2); Mean Corpuscular HGB Conc 33.8 g/dl (32-36); Mean Corpuscular Hemoglobin 31.9 pg (26-34); Mean Corpuscular Volume 94.6 fl (80-100); Mean Platelet Volume 8.9 fl (7.4-10.4); Monocytes Absolute Auto 0.3 K/mm3 (0.1-0.6); Monocytes Percent Auto 2.8 % (2.6-8.5); Neutrophils Absolute Auto 9.1 K/mm3 (1.3-6.7); Neutrophils Percent Auto 88.6 % (45.5-73.1); Platelet Count Result 266 k/mm3 (150-375); Red Blood Count 3.35 M/mm3 (4.6-6.20); Red Cell Distribution Width 12.8 % (11.5-14.5); White Blood Count 10.3 K/mm3 (4.5-10.0)
[2024-10-27 07:08] LABS: Alanine Aminotransferase 16 U/L (6-50); Albumin Level 2.7 g/dL (3.5-5.1); Alkaline Phosphatase 94 U/L (38-126); Anion Gap 2 mmol/L (4-12); Aspartate Amino Transferase 25 U/L (17-59); Bilirubin,Total 0.4 mg/dL (0.2-1.3); Blood Urea Nitrogen 4 mg/dL (9-20); Calcium 7.7 mg/dL (8.4-10.2); Carbon Dioxide 28 mmol/L (22-30); Chloride 105 mmol/L (98-107); Estimated CRCL calculation 123 ml/min; Estimated Glomerular Filt Rate > 60; Glucose 109 mg/dL (65-110); Magnesium 1.5 mg/dL (1.6-2.3); Sodium 135 mmol/L (137-145)
[2024-10-27] MEDS: FLUTICASONE/UMECLIDIN/VILANTER 200-62.5-25 MCG ELLIPTA 1 PUFF INHALATION (09:50)
[2024-10-27] MEDS: ATORVASTATIN 40 MG TABLET PO (09:51)
[2024-10-27] MEDS: NICOTINE (*PBKC) 21 MG PATCH 1 PATCH TRANSDERM (09:51)
[2024-10-27] MEDS: MIRABEGRON 50 MG ER TABLET PO (09:51)
[2024-10-27] MEDS: oxyBUTYnin CHLORIDE XL 5 MG TAB.ER.24 10 MG PO (09:51)
[2024-10-27] MEDS: MAGNESIUM SULF 2 GM/WATER 50ML 2 GM/50 ML BAG IVPB (09:51)
[2024-10-27] MEDS: hydroCHLOROthiazide 12.5 MG CAPSULE PO (09:52)
[2024-10-27] MEDS: THIAMINE HCL 200 MG/2 ML VIAL 100 MG IV PUSH (09:52)
[2024-10-27] MEDS: TAMSULOSIN HCL 0.4 MG CAPSULE PO (09:52)
[2024-10-27] MEDS: POTASSIUM CHLORIDE 20 MEQ ER TABLET 40 MEQ PO ×2 (09:52→14:11)
[2024-10-27] MEDS: lisinopriL 20 MG TABLET PO (09:52)
[2024-10-27] MEDS: SODIUM CHLORIDE 0.9% IV 1,000 ML 85 ML IV CONT (10:10)
--- NOTE | 2024-10-27 10:10 | P.PNIM_ITS ---
Progress Note: A&P Assessment and Plan (1) Diverticulitis of intestine with perforation without abscess: Code(s): K57.80 - Diverticulitis of intestine, part unspecified, with perforation and abscess without bleeding Status: Acute Assessment and Plan: * 10/24/24 CT of abdomen showed: IMPRESSION: 1. Sigmoid diverticulitis with likely microperforation with small amount of likely reactive ascites and minimal extraluminal gas in the mesentery immediately adjacent to the diverticulitis. No abscess. 2. Likely reactive edematous wall thickening at the sigmoid colon as well as involving and adjacent short segment of small bowel. * Receiving Ceftriaxone 1 gram IVPB q 12 and Metronidazole 500 mg IVPB q 8. * NS@ 85 ml/hr. * Surgery following. * Diet advanced to clear liquid today. * Abdominal pain improved. * WBC improved from 22.9>14.0>10.3. (2) Hypertension: Code(s): I10 - Essential (primary) hypertension Status: Acute Assessment and Plan: * Blood pressure 145/83. * Restart home Lisinopril/HCTZ. (3) Chronic obstructive pulmonary disease: Code(s): J44.9 - Chronic obstructive pulmonary disease, unspecified Status: Acute Assessment and Plan: * Continue Trelegy 200-62.5-25 mcg 1 puff daily and Albuterol 1 puff q4 PRN. * Monitor oxygen needs and taper to keep Sa02 above 92%. (4) Hypokalemia: Code(s): E87.6 - Hypokalemia Status: Acute Assessment and Plan: * Potassium 3.0 * Potassium 40 meq PO q4 x 2. * Monitor labs (5) Hypomagnesemia: Code(s): E83.42 - Hypomagnesemia Status: Acute Assessment and Plan: * Magnesium 1.5. * Patient received Magnesium Sulfate 2 gram IVPB x 1. * Monitor labs. (6) Alcohol abuse: Code(s): F10.10 - Alcohol abuse, uncomplicated Status: Acute Assessment and Plan: * CIWA protocol (7) Tobacco abuse: Code(s): Z72.0 - Tobacco use Status: Acute Assessment and Plan: * Nicotine patch. Subjective Date/time seen: 10/27/24 10:10 Interval history: Patient reports feeling better today and tolerating clear liquid diet. Abdominal pain is currently a 2 , constant, and dull. Patient denies chest pain, nausea, vomiting, headache, or dizziness. Review of Systems Review of Systems: All systems reviewed & are unremarkable except as noted in HPI and below Exam Const: General: no acute distress and uncomfortable Eyes: Sclera: sclerae normal Resp: Auscultation: wheezes expiratory wheezes and inspiratory wheezes and diminished lung sounds Cardio: Rate: regular rate Rhythm: regular rhythm GI: GI Palp: Yes Soft to palpation and Yes Tenderness to palpation present (GI) (across lower abdomen. ) Skin: General skin exam: no rashes or lesions noted Neuro: Speech: normal speech Extrem: General: no pedal edema Psych: Mental Status: mental status grossly normal Affect: normal affect Objective Data Vital Signs Vital Signs: Vital Signs - 24 hr 10/26/24 11:58 10/26/24 12:00 10/26/24 16:00 Temperature 96.1 F L 97.5 F L Pulse Rate 84 90 Pulse Rate [NIBP] 88 Respiratory Rate 18 16 Blood Pressure 128/78 128/78 134/67 Pulse Oximetry 97 94 Oxygen Delivery 10/26/24 16:00 10/26/24 20:00 10/26/24 20:15 Temperature 98.1 F Pulse Rate 86 Pulse Rate [NIBP] 88 86 Respiratory Rate 16 Blood Pressure 134/67 145/85 H Pulse Oximetry 97 Oxygen Delivery 10/26/24 23:50 10/27/24 00:00 10/27/24 03:39 Temperature 97.6 F 98.8 F Pulse Rate 90 87 Pulse Rate [NIBP] 88 Respiratory Rate 20 16 Blood Pressure 143/76 H 147/83 H Pulse Oximetry 95 95 Oxygen Delivery 10/27/24 08:00 10/27/24 09:50 Temperature 99.4 F Pulse Rate 81 Pulse Rate [NIBP] Respiratory Rate 18 Blood Pressure 145/83 H Pulse Oximetry 95 95 Oxygen Delivery Room Air Intake/Output Intake/Output: Intake & Output 10/24/24 10/25/24 10/26/24 10/27/24 23:59 23:59 23:59 23:59 Intake Total 1050 1800 3040 1100 Output Total 700 1550 200 Balance 1050 1100 1490 900 Meds/Results Medications: Active Medications Generic Name Dose Route Start Last Admin Trade Name Freq PRN Reason Stop Dose Admin Albuterol 1 puff 10/24/24 22:50 10/27/24 05:20 Albuterol Sulfate (*Sp) Aerosol 1 Puff INHALATION 1 puff Q4H PRN Administration Shortness Of Breath Atorvastatin Calcium 40 mg 10/25/24 12:00 10/27/24 09:51 Atorvastatin 40 Mg Tablet PO 40 mg DAILY MARIA ANTONIA Administration Chlordiazepoxide HCl 25 mg 10/24/24 22:37 Chlordiazepoxide (*Crx) 25 Mg Capsule PO Q8H PRN withdrawal symptoms & CIWA < 8 Fluticasone Propionate 1 spray 10/24/24 22:50 Fluticasone Propionate 0.05% Na Spr 16 Gm Btl (*Bkc) NASAL DAILY PRN allergy symptoms Fluticasone/Umeclidinium/Vilanterol 1 puff 10/25/24 09:00 10/27/24 09:50 Fluticasone/Umeclidin/Vilanter 200-62.5-25 Mcg Ellipta INHALATION 1 puff DAILY MARIA ANTONIA Administration Hydrochlorothiazide 12.5 mg 10/27/24 09:00 10/27/24 09:52 Hydrochlorothiazide 12.5 Mg Capsule PO 12.5 mg QAM MARIA ANTONIA Administration Hydromorphone HCl 0.5 mg 10/24/24 22:37 10/26/24 20:51 Hydromorphone Hcl Inj (*Crx) 1 Mg/Ml Syr IV PUSH 0.5 mg Q3H PRN Administration Pain Rated 4-6 Hydromorphone HCl 1 mg 10/25/24 10:08 10/26/24 08:01 Hydromorphone Hcl Inj (*Crx) 1 Mg/Ml Syr IV PUSH 1 mg Q3H PRN Administration Pain Rated 7-10 Sodium Chloride 1,000 mls @ 85 mls/hr 10/24/24 18:15 10/27/24 10:10 Normal Saline Iv IV CONT 85 mls/hr .[id number] MARIA ANTONIA Administration Metronidazole 500 mg in 100 mls @ 100 mls/hr 10/25/24 00:00 10/27/24 09:51 Flagyl 500 Mg/Iso Soln 100 Ml IVPB 100 mls/hr Q8H MARIA ANTONIA Administration Ceftriaxone Sodium 1 gm in 50 mls @ 100 mls/hr 10/25/24 09:00 10/27/24 09:52 Rocephin 1 Gm/Ns 50 Ml IVPB 100 mls/hr Q12HR MARIA ANTONIA Administration Ibuprofen 800 mg in 200 mls @ 400 mls/hr 10/26/24 11:30 Caldolor 800 Mg/200 Ml IVPB Q6H PRN Pain Rated 1-3 Lisinopril 20 mg 10/27/24 09:00 10/27/24 09:52 Lisinopril 20 Mg Tablet PO 20 mg QAM MARIA ANTONIA Administration Lorazepam 1 mg 10/24/24 22:37 Lorazepam Inj (*Crx) 2 Mg/Ml Vial IV PUSH Q2H PRN CIWA 8-15 Lorazepam 2 mg 10/24/24 22:37 Lorazepam Inj (*Crx) 2 Mg/Ml Vial IV PUSH Q2H PRN CIWA > 15 Mirabegron 50 mg 10/25/24 13:00 10/27/24 09:51 Mirabegron 50 Mg Er Tablet PO 50 mg DAILY MARIA ANTONIA Administration Montelukast Sodium 10 mg 10/25/24 21:00 10/26/24 20:35 Montelukast Sodium 10 Mg Tablet PO 10 mg HS MARIA ANTONIA Administration Nicotine 1 patch 10/24/24 22:40 10/27/24 09:51 Nicotine (*Pbkc) 21 Mg Patch TRANSDERM 1 patch DAILY MARIA ANTONIA Administration Ondansetron HCl 4 mg 10/24/24 18:12 Ondansetron Inj 4 Mg/2 Ml Vial IV PUSH Q4H PRN Nausea Oxybutynin Chloride 10 mg 10/25/24 12:00 10/27/24 09:51 Oxybutynin Chloride Xl 5 Mg Tab.Er.24 PO 10 mg DAILY MARIA ANTONIA Administration Potassium Chloride 40 meq 10/27/24 12:00 Potassium Chloride 20 Meq Er Tablet PO 10/27/24 12:01 ONCE ONE Sertraline HCl 100 mg 10/25/24 21:00 10/26/24 20:35 Sertraline Hcl 50 Mg Tablet PO 100 mg HS MARIA ANTONIA Administration Tamsulosin HCl 0.4 mg 10/25/24 12:00 10/27/24 09:52 Tamsulosin Hcl 0.4 Mg Capsule PO 0.4 mg DAILY MARIA ANTONIA Administration Thiamine HCl 100 mg 10/25/24 09:00 10/27/24 09:52 Thiamine Hcl 200 Mg/2 Ml Vial IV PUSH 100 mg QAM MARIA ANTONIA Administration Trazodone HCl 50 mg 10/24/24 23:50 10/26/24 20:35 Trazodone Hcl 50 Mg Tablet PO 50 mg HS MARIA ANTONIA Administration Radiology Results: ITS Impressions Abdomen/Pelvis CT 10/24/24 16:41 IMPRESSION: 1. Sigmoid diverticulitis with likely microperforation with small amount of likely reactive ascites and minimal extraluminal gas in the mesentery immediately adjacent to the diverticulitis. No abscess. 2. Likely reactive edematous wall thickening at the sigmoid colon as well as involving and adjacent short segment of small bowel. Labs Labs: Laboratory Results - last 24 hr 10/27/24 06:05 WBC 10.3 H RBC 3.35 L Hgb 10.7 L Hct 31.7 L MCV 94.6 MCH 31.9 MCHC 33.8 RDW 12.8 Plt Count 266 MPV 8.9 Immature Gran % (Auto) 0.4 Neut % (Auto) 88.6 H Lymph % (Auto) 6.2 L [place] % (Auto) 2.8 Eos % (Auto) 1.8 Baso % (Auto) 0.2 Lymph # (Auto) 0.64 L [place] # (Auto) 0.3 Eos # (Auto) 0.2 Baso # (Auto) 0.0 Abs Immat Gran (auto) 0.04 H Absolute Neuts (auto) 9.1 H Absolute Nucleated RBC 0.000 Nucleated RBC % 0.0 Sodium 135 L Potassium 3.0 L Chloride 105 Carbon Dioxide 28 Anion Gap 2 L BUN 4 L D Creatinine 0.54 L Estim Creat Clear Calc 123 Estimated GFR > 60 Glucose 109 Calcium 7.7 L Magnesium 1.5 L Total Bilirubin 0.4 AST 25 ALT 16 Alkaline Phosphatase 94 Total Protein 6.0 L Albumin 2.7 L Quality VTE Prophylaxis VTE prophylaxis: pharmacologic ordered
--- NOTE | 2024-10-27 14:38 | WPDPN ---
Progress Note: A&P Assessment and Plan (1) Diverticulitis of intestine with perforation without abscess: Code(s): K57.80 - Diverticulitis of intestine, part unspecified, with perforation and abscess without bleeding Status: Acute Assessment and Plan: Patient seems to be improving with non operative management for his sigmoid diverticulitis micro perforation. Tolerating clear liquids. White blood cell count is decreasing. Continue IV antibiotics for now and advance to full liquid diet. If tolerating hopefully can advance to a low-fiber diet tomorrow and maybe home within the next 1 to 2 days on oral antibiotics. Continue supportive management. Subjective Date/time seen: 10/27/24 14:38 Interval history: Patient states he feels better today. Had a loose diarrhea stool earlier today. No blood in the stool. Pain level is 2/10 now. No nausea or vomiting. He has been tolerating clear liquids. Potassium was low at 3.0. Primary service as replaced with oral potassium. White blood cell count is down to 10,000. No fever. Exam GI: Other: Abdomen is soft and nondistended. Minimal tenderness to palpation in suprapubic and left lower quadrant. No masses. No acute surgical abdomen. Objective Data Vital Signs Vital Signs: Vital Signs - 24 hr 10/26/24 16:00 10/26/24 16:00 10/26/24 20:00 Temperature 36.4 C L 36.7 C Pulse Rate 90 86 Pulse Rate [NIBP] 88 Respiratory Rate 16 16 Blood Pressure 134/67 134/67 145/85 H Pulse Oximetry 94 97 Oxygen Delivery 10/26/24 20:15 10/26/24 23:50 10/27/24 00:00 Temperature 36.4 C Pulse Rate 90 Pulse Rate [NIBP] 86 88 Respiratory Rate 20 Blood Pressure 143/76 H Pulse Oximetry 95 Oxygen Delivery 10/27/24 03:39 10/27/24 08:00 10/27/24 09:50 Temperature 37.1 C 37.4 C Pulse Rate 87 81 Pulse Rate [NIBP] Respiratory Rate 16 18 Blood Pressure 147/83 H 145/83 H Pulse Oximetry 95 95 95 Oxygen Delivery Room Air 10/27/24 09:52 10/27/24 12:00 Temperature 35.8 C L Pulse Rate 95 Pulse Rate [NIBP] Respiratory Rate 20 Blood Pressure 158/82 H Pulse Oximetry 96 Oxygen Delivery Room Air Intake/Output Intake/Output: Intake & Output 10/24/24 10/25/24 10/26/24 10/27/24 23:59 23:59 23:59 23:59 Intake Total 1050 1800 3040 1560 Output Total 700 1550 200 Balance 1050 1100 1490 1360 Meds/Results Medications: Active Medications Generic Name Dose Route Start Last Admin Trade Name Freq PRN Reason Stop Dose Admin Albuterol 1 puff 10/24/24 22:50 10/27/24 05:20 Albuterol Sulfate (*Sp) Aerosol 1 Puff INHALATION 1 puff Q4H PRN Administration Shortness Of Breath Atorvastatin Calcium 40 mg 10/25/24 12:00 10/27/24 09:51 Atorvastatin 40 Mg Tablet PO 40 mg DAILY MARIA ANTONIA Administration Chlordiazepoxide HCl 25 mg 10/24/24 22:37 Chlordiazepoxide (*Crx) 25 Mg Capsule PO Q8H PRN withdrawal symptoms & CIWA < 8 Fluticasone Propionate 1 spray 10/24/24 22:50 Fluticasone Propionate 0.05% Na Spr 16 Gm Btl (*Bkc) NASAL DAILY PRN allergy symptoms Fluticasone/Umeclidinium/Vilanterol 1 puff 10/25/24 09:00 10/27/24 09:50 Fluticasone/Umeclidin/Vilanter 200-62.5-25 Mcg Ellipta INHALATION 1 puff DAILY MARIA ANTONIA Administration Hydrochlorothiazide 12.5 mg 10/27/24 09:00 10/27/24 09:52 Hydrochlorothiazide 12.5 Mg Capsule PO 12.5 mg QAM MARIA ANTONIA Administration Hydromorphone HCl 0.5 mg 10/24/24 22:37 10/26/24 20:51 Hydromorphone Hcl Inj (*Crx) 1 Mg/Ml Syr IV PUSH 0.5 mg Q3H PRN Administration Pain Rated 4-6 Hydromorphone HCl 1 mg 10/25/24 10:08 10/26/24 08:01 Hydromorphone Hcl Inj (*Crx) 1 Mg/Ml Syr IV PUSH 1 mg Q3H PRN Administration Pain Rated 7-10 Sodium Chloride 1,000 mls @ 85 mls/hr 10/24/24 18:15 10/27/24 10:10 Normal Saline Iv IV CONT 85 mls/hr .[id number] MARIAA NTONIA Administration Metronidazole 500 mg in 100 mls @ 100 mls/hr 10/25/24 00:00 10/27/24 10:51 Flagyl 500 Mg/Iso Soln 100 Ml IVPB Infused Q8H MARIA ANTONIA Infusion Ceftriaxone Sodium 1 gm in 50 mls @ 100 mls/hr 10/25/24 09:00 10/27/24 09:52 Rocephin 1 Gm/Ns 50 Ml IVPB 100 mls/hr Q12HR MARIA ANTONIA Administration Ibuprofen 800 mg in 200 mls @ 400 mls/hr 10/26/24 11:30 Caldolor 800 Mg/200 Ml IVPB Q6H PRN Pain Rated 1-3 Lisinopril 20 mg 10/27/24 09:00 10/27/24 09:52 Lisinopril 20 Mg Tablet PO 20 mg QAM MARIA ANTONIA Administration Lorazepam 1 mg 10/24/24 22:37 Lorazepam Inj (*Crx) 2 Mg/Ml Vial IV PUSH Q2H PRN CIWA 8-15 Lorazepam 2 mg 10/24/24 22:37 Lorazepam Inj (*Crx) 2 Mg/Ml Vial IV PUSH Q2H PRN CIWA > 15 Mirabegron 50 mg 10/25/24 13:00 10/27/24 09:51 Mirabegron 50 Mg Er Tablet PO 50 mg DAILY MARIA ANTONIA Administration Montelukast Sodium 10 mg 10/25/24 21:00 10/26/24 20:35 Montelukast Sodium 10 Mg Tablet PO 10 mg HS MARIA ANTONIA Administration Nicotine 1 patch 10/24/24 22:40 10/27/24 09:51 Nicotine (*Pbkc) 21 Mg Patch TRANSDERM 1 patch DAILY MARIA ANTONIA Administration Ondansetron HCl 4 mg 10/24/24 18:12 Ondansetron Inj 4 Mg/2 Ml Vial IV PUSH Q4H PRN Nausea Oxybutynin Chloride 10 mg 10/25/24 12:00 10/27/24 09:51 Oxybutynin Chloride Xl 5 Mg Tab.Er.24 PO 10 mg DAILY MARIA ANTONIA Administration Sertraline HCl 100 mg 10/25/24 21:00 10/26/24 20:35 Sertraline Hcl 50 Mg Tablet PO 100 mg HS MARIA ANTONIA Administration Tamsulosin HCl 0.4 mg 10/25/24 12:00 10/27/24 09:52 Tamsulosin Hcl 0.4 Mg Capsule PO 0.4 mg DAILY MARIA ANTONIA Administration Thiamine HCl 100 mg 10/25/24 09:00 10/27/24 09:52 Thiamine Hcl 200 Mg/2 Ml Vial IV PUSH 100 mg QAM MARIA ANTONIA Administration Trazodone HCl 50 mg 10/24/24 23:50 10/26/24 20:35 Trazodone Hcl 50 Mg Tablet PO 50 mg HS MARIA ANTONIA Administration Radiology Results: ITS Impressions Abdomen/Pelvis CT 10/24/24 16:41 IMPRESSION: 1. Sigmoid diverticulitis with likely microperforation with small amount of likely reactive ascites and minimal extraluminal gas in the mesentery immediately adjacent to the diverticulitis. No abscess. 2. Likely reactive edematous wall thickening at the sigmoid colon as well as involving and adjacent short segment of small bowel. Labs Labs: Laboratory Results - last 24 hr 10/27/24 06:05 WBC 10.3 H RBC 3.35 L Hgb 10.7 L Hct 31.7 L MCV 94.6 MCH 31.9 MCHC 33.8 RDW 12.8 Plt Count 266 MPV 8.9 Immature Gran % (Auto) 0.4 Neut % (Auto) 88.6 H Lymph % (Auto) 6.2 L [place] % (Auto) 2.8 Eos % (Auto) 1.8 Baso % (Auto) 0.2 Lymph # (Auto) 0.64 L [place] # (Auto) 0.3 Eos # (Auto) 0.2 Baso # (Auto) 0.0 Abs Immat Gran (auto) 0.04 H Absolute Neuts (auto) 9.1 H Absolute Nucleated RBC 0.000 Nucleated RBC % 0.0 Sodium 135 L Potassium 3.0 L Chloride 105 Carbon Dioxide 28 Anion Gap 2 L BUN 4 L D Creatinine 0.54 L Estim Creat Clear Calc 123 Estimated GFR > 60 Glucose 109 Calcium 7.7 L Magnesium 1.5 L Total Bilirubin 0.4 AST 25 ALT 16 Alkaline Phosphatase 94 Total Protein 6.0 L Albumin 2.7 L
[2024-10-27] MEDS: HYDROmorphone HCL INJ (*CRX) 1 MG/ML SYR 0.5 MG IV PUSH ×2 (16:50→22:32)
[2024-10-27] MEDS: SERTRALINE HCL 50 MG TABLET 100 MG PO (20:40)
[2024-10-27] MEDS: MONTELUKAST SODIUM 10 MG TABLET PO (20:40)
[2024-10-27] MEDS: FLUTICASONE PROPIONATE 0.05% NA SPR 16 GM BTL (*BKC) 1 SPRAY NASAL (22:29)
[2024-10-27] MEDS: traZODone HCL 50 MG TABLET PO (22:29)
[2024-10-28] VITALS (7 sets, daily range): BP systolic 125–158; BP diastolic 65–92; PULSE 63–84; RESP 14–20; TEMP 36.3–36.8; O2SAT 95–98
[2024-10-28] MEDS: HYDROmorphone HCL INJ (*CRX) 1 MG/ML SYR IV PUSH (03:35)
[2024-10-28] MEDS: SODIUM CHLORIDE 0.9% IV 1,000 ML 85 ML IV CONT (03:36)
[2024-10-28] MEDS: FLUTICASONE/UMECLIDIN/VILANTER 200-62.5-25 MCG ELLIPTA 1 PUFF INHALATION (07:42)
[2024-10-28 07:46] LABS: Basophils Percent Auto 0.3 % (0.2-1.2); Eosinophils Absolute Auto 0.1 K/mm3 (0-0.3); Hematocrit 31.5 % (42.0-52.0); Hemoglobin 10.7 g/dL (14.0-18.0); Immature Granulocyte Absolute 0.05 K/mm3 (0.00-0.031); Immature Granulocyte Percent A 0.5 % (0-0.5); Lymphocytes Absolute Auto 0.69 K/mm3 (0.9-3.2); Mean Corpuscular Hemoglobin 32.3 pg (26-34); Mean Corpuscular Volume 95.2 fl (80-100); Mean Platelet Volume 8.9 fl (7.4-10.4); Monocytes Absolute Auto 0.5 K/mm3 (0.1-0.6); Monocytes Percent Auto 4.9 % (2.6-8.5); Neutrophils Absolute Auto 8.5 K/mm3 (1.3-6.7); Neutrophils Percent Auto 86.3 % (45.5-73.1); Platelet Count Result 276 k/mm3 (150-375); Red Blood Count 3.31 M/mm3 (4.6-6.20); Red Cell Distribution Width 12.8 % (11.5-14.5); White Blood Count 9.9 K/mm3 (4.5-10.0)
[2024-10-28 07:59] LABS: Alanine Aminotransferase 19 U/L (6-50); Albumin Level 2.7 g/dL (3.5-5.1); Alkaline Phosphatase 86 U/L (38-126); Anion Gap 3 mmol/L (4-12); Aspartate Amino Transferase 42 U/L (17-59); Bilirubin,Total 0.4 mg/dL (0.2-1.3); Blood Urea Nitrogen 2 mg/dL (9-20); Calcium 8.3 mg/dL (8.4-10.2); Carbon Dioxide 30 mmol/L (22-30); Chloride 103 mmol/L (98-107); Estimated CRCL calculation 126 ml/min; Estimated Glomerular Filt Rate > 60; Glucose 98 mg/dL (65-110); Magnesium 1.5 mg/dL (1.6-2.3); Potassium 3.5 mmol/L (3.4-5.0); Sodium 136 mmol/L (137-145)
[2024-10-28] MEDS: IBUPROFEN IV 800 MG/200 ML 800 MG/200 ML BAG 400 MG IVPB (09:29)
[2024-10-28] MEDS: POTASSIUM CHLORIDE 20 MEQ ER TABLET 40 MEQ PO (09:33)
[2024-10-28] MEDS: NICOTINE (*PBKC) 21 MG PATCH 1 PATCH TRANSDERM (09:33)
[2024-10-28] MEDS: MIRABEGRON 50 MG ER TABLET PO (09:35)
[2024-10-28] MEDS: lisinopriL 20 MG TABLET PO (09:35)
[2024-10-28] MEDS: ATORVASTATIN 40 MG TABLET PO (09:35)
[2024-10-28] MEDS: TAMSULOSIN HCL 0.4 MG CAPSULE PO (09:35)
[2024-10-28] MEDS: oxyBUTYnin CHLORIDE XL 5 MG TAB.ER.24 10 MG PO (09:35)
[2024-10-28] MEDS: hydroCHLOROthiazide 12.5 MG CAPSULE PO (09:35)
[2024-10-28] MEDS: THIAMINE HCL 200 MG/2 ML VIAL 100 MG IV PUSH (09:38)
--- NOTE | 2024-10-28 10:12 | P.PNIM_ITS ---
Progress Note: A&P Assessment and Plan (1) Diverticulitis of intestine with perforation without abscess: Code(s): K57.80 - Diverticulitis of intestine, part unspecified, with perforation and abscess without bleeding Status: Acute Assessment and Plan: * 10/24/24 CT of abdomen showed: IMPRESSION: 1. Sigmoid diverticulitis with likely microperforation with small amount of likely reactive ascites and minimal extraluminal gas in the mesentery immediately adjacent to the diverticulitis. No abscess. 2. Likely reactive edematous wall thickening at the sigmoid colon as well as involving and adjacent short segment of small bowel. * Receiving Ceftriaxone 1 gram IVPB q 12 and Metronidazole 500 mg IVPB q 8. * NS@ 85 ml/hr. * Surgery following. * Diet advanced to clear liquid today. * Abdominal pain improved. * WBC improved from 22.9>14.0>10.3>9.9. (2) Hypertension: Code(s): I10 - Essential (primary) hypertension Status: Acute Assessment and Plan: * Blood pressure 144/73 * Continue home Lisinopril/HCTZ. (3) Chronic obstructive pulmonary disease: Code(s): J44.9 - Chronic obstructive pulmonary disease, unspecified Status: Acute Assessment and Plan: * Continue Trelegy 200-62.5-25 mcg 1 puff daily and Albuterol 1 puff q4 PRN. * Monitor oxygen needs and taper to keep Sa02 above 92%. (4) Hypokalemia: Code(s): E87.6 - Hypokalemia Status: Acute Assessment and Plan: * Potassium 3.5 * Potassium 40 meq PO q4 x 1. * Monitor labs (5) Hypomagnesemia: Code(s): E83.42 - Hypomagnesemia Status: Acute Assessment and Plan: * Magnesium 1.5. * Patient received Magnesium Sulfate 3 gram IVPB x 1. Magnesium improved to 1.8. * Give an additional Magnesium Sulfate 2 gram IVPB x1 to get magnesium >2. * Monitor labs. (6) Alcohol abuse: Code(s): F10.10 - Alcohol abuse, uncomplicated Status: Acute Assessment and Plan: * [facility] protocol (7) Tobacco abuse: Code(s): Z72.0 - Tobacco use Status: Acute Assessment and Plan: * Nicotine patch. Subjective Date/time seen: 10/28/24 10:12 Interval history: Patient reports feeling better today and tolerating low fiber diet. Abdominal pain is currently a 2 , constant, and dull. Patient denies chest pain, nausea, vomiting, headache, or dizziness. Review of Systems Review of Systems: All systems reviewed & are unremarkable except as noted in HPI and below Exam Const: General: no acute distress and uncomfortable Eyes: Sclera: sclerae normal Resp: Auscultation: diminished lung sounds Cardio: Rate: regular rate Rhythm: regular rhythm GI: GI Palp: Yes Soft to palpation and Yes Tenderness to palpation present (GI) (across lower abdomen) Auscultation: normal bowel sounds Skin: General skin exam: no rashes or lesions noted Neuro: Speech: normal speech Extrem: General: no pedal edema Psych: Mental Status: mental status grossly normal Affect: normal affect Objective Data Vital Signs Vital Signs: Vital Signs - 24 hr 10/27/24 12:00 10/27/24 16:00 10/27/24 20:00 Temperature 96.5 F L 98.2 F 98.1 F Pulse Rate 95 86 80 Respiratory Rate 20 18 18 Blood Pressure 158/82 H 142/70 H 159/87 H Pulse Oximetry 96 97 97 Oxygen Delivery 10/27/24 20:00 10/27/24 23:33 10/28/24 03:24 Temperature 98.0 F 97.7 F Pulse Rate 82 77 Respiratory Rate 20 20 Blood Pressure 142/71 H 136/65 Pulse Oximetry 94 95 Oxygen Delivery Room Air 10/28/24 07:44 10/28/24 08:00 Temperature 97.5 F L Pulse Rate 63 Respiratory Rate 18 Blood Pressure 144/73 H Pulse Oximetry 95 95 Oxygen Delivery Room Air Intake/Output Intake/Output: Intake & Output 10/25/24 10/26/24 10/27/24 10/28/24 23:59 23:59 23:59 23:59 Intake Total 1800 3040 2360 1770 Output Total 700 1550 1500 550 Balance 1100 1077 400 3724 Meds/Results Medications: Active Medications Generic Name Dose Route Start Last Admin Trade Name Freq PRN Reason Stop Dose Admin Acetaminophen 650 mg 10/28/24 09:53 Acetaminophen 325 Mg Tablet PO Q4H PRN Mild Pain (1-3) or Fever Albuterol 1 puff 10/24/24 22:50 10/27/24 05:20 Albuterol Sulfate (*Sp) Aerosol 1 Puff INHALATION 1 puff Q4H PRN Administration Shortness Of Breath Atorvastatin Calcium 40 mg 10/25/24 12:00 10/28/24 09:35 Atorvastatin 40 Mg Tablet PO 40 mg DAILY MARIA ANTONIA Administration Chlordiazepoxide HCl 25 mg 10/24/24 22:37 Chlordiazepoxide (*Crx) 25 Mg Capsule PO Q8H PRN withdrawal symptoms & CIWA < 8 Fluticasone Propionate 1 spray 10/24/24 22:50 10/27/24 22:29 Fluticasone Propionate 0.05% Na Spr 16 Gm Btl (*Bkc) NASAL 1 spray DAILY PRN Administration allergy symptoms Fluticasone/Umeclidinium/Vilanterol 1 puff 10/25/24 09:00 10/28/24 07:42 Fluticasone/Umeclidin/Vilanter 200-62.5-25 Mcg Ellipta INHALATION 1 puff DAILY MARIA ANTONIA Administration Hydrochlorothiazide 12.5 mg 10/27/24 09:00 10/28/24 09:35 Hydrochlorothiazide 12.5 Mg Capsule PO 12.5 mg QAM MARIA ANTONIA Administration Hydromorphone HCl 0.5 mg 10/24/24 22:37 10/27/24 22:32 Hydromorphone Hcl Inj (*Crx) 1 Mg/Ml Syr IV PUSH 0.5 mg Q3H PRN Administration Pain Rated 4-6 Hydromorphone HCl 1 mg 10/25/24 10:08 10/28/24 03:35 Hydromorphone Hcl Inj (*Crx) 1 Mg/Ml Syr IV PUSH 1 mg Q3H PRN Administration Pain Rated 7-10 Sodium Chloride 1,000 mls @ 85 mls/hr 10/24/24 18:15 10/28/24 03:36 Normal Saline Iv IV CONT 85 mls/hr .[id number] MARIA ANTONIA Administration Metronidazole 500 mg in 100 mls @ 100 mls/hr 10/25/24 00:00 10/28/24 00:04 Flagyl 500 Mg/Iso Soln 100 Ml IVPB Infused Q8H MARIA ANTONIA Infusion Ceftriaxone Sodium 1 gm in 50 mls @ 100 mls/hr 10/25/24 09:00 10/27/24 20:41 Rocephin 1 Gm/Ns 50 Ml IVPB 100 mls/hr Q12HR MARIA ANTONIA Administration Ibuprofen 800 mg in 200 mls @ 400 mls/hr 10/26/24 11:30 10/28/24 09:29 Caldolor 800 Mg/200 Ml IVPB 400 mls/hr Q6H PRN Administration Pain Rated 1-3 Magnesium Sulfate/Dextrose 3 gm in 100 mls @ 33.333 mls/hr 10/28/24 08:03 Magnesium Sulfate 3gm/[id number] IVPB 10/28/24 11:02 ONCE ONE Lisinopril 20 mg 10/27/24 09:00 10/28/24 09:35 Lisinopril 20 Mg Tablet PO 20 mg QAM MARIA ANTONIA Administration Lorazepam 1 mg 10/24/24 22:37 Lorazepam Inj (*Crx) 2 Mg/Ml Vial IV PUSH Q2H PRN CIWA 8-15 Lorazepam 2 mg 10/24/24 22:37 Lorazepam Inj (*Crx) 2 Mg/Ml Vial IV PUSH Q2H PRN CIWA > 15 Mirabegron 50 mg 10/25/24 13:00 10/28/24 09:35 Mirabegron 50 Mg Er Tablet PO 50 mg DAILY MARIA ANTONIA Administration Montelukast Sodium 10 mg 10/25/24 21:00 10/27/24 20:40 Montelukast Sodium 10 Mg Tablet PO 10 mg HS MARIA ANTONIA Administration Nicotine 1 patch 10/24/24 22:40 10/28/24 09:33 Nicotine (*Pbkc) 21 Mg Patch TRANSDERM 1 patch DAILY MARIA ANTONIA Administration Ondansetron HCl 4 mg 10/24/24 18:12 Ondansetron Inj 4 Mg/2 Ml Vial IV PUSH Q4H PRN Nausea Oxybutynin Chloride 10 mg 10/25/24 12:00 10/28/24 09:35 Oxybutynin Chloride Xl 5 Mg Tab.Er.24 PO 10 mg DAILY MARIA ANTONIA Administration Sertraline HCl 100 mg 10/25/24 21:00 10/27/24 20:40 Sertraline Hcl 50 Mg Tablet PO 100 mg HS MARIA ANTONIA Administration Tamsulosin HCl 0.4 mg 10/25/24 12:00 10/28/24 09:35 Tamsulosin Hcl 0.4 Mg Capsule PO 0.4 mg DAILY MARIA ANTONIA Administration Thiamine HCl 100 mg 10/25/24 09:00 10/28/24 09:38 Thiamine Hcl 200 Mg/2 Ml Vial IV PUSH 100 mg QAM MARIA ANTONIA Administration Trazodone HCl 50 mg 10/24/24 23:50 10/27/24 22:29 Trazodone Hcl 50 Mg Tablet PO 50 mg HS MARIA ANTONIA Administration Radiology Results: ITS Impressions Abdomen/Pelvis CT 10/24/24 16:41 IMPRESSION: 1. Sigmoid diverticulitis with likely microperforation with small amount of likely reactive ascites and minimal extraluminal gas in the mesentery immediately adjacent to the diverticulitis. No abscess. 2. Likely reactive edematous wall thickening at the sigmoid colon as well as involving and adjacent short segment of small bowel. Labs Labs: Laboratory Results - last 24 hr 10/28/24 06:41 WBC 9.9 RBC 3.31 L Hgb 10.7 L Hct 31.5 L MCV 95.2 MCH 32.3 MCHC 34.0 RDW 12.8 Plt Count 276 MPV 8.9 Immature Gran % (Auto) 0.5 Neut % (Auto) 86.3 H Lymph % (Auto) 7.0 L [place] % (Auto) 4.9 Eos % (Auto) 1.0 Baso % (Auto) 0.3 Lymph # (Auto) 0.69 L [place] # (Auto) 0.5 Eos # (Auto) 0.1 Baso # (Auto) 0.0 Abs Immat Gran (auto) 0.05 H Absolute Neuts (auto) 8.5 H Absolute Nucleated RBC 0.000 Nucleated RBC % 0.0 Sodium 136 L Potassium 3.5 Chloride 103 Carbon Dioxide 30 Anion Gap 3 L BUN 2 L Creatinine 0.53 L Estim Creat Clear Calc 126 Estimated GFR > 60 Glucose 98 Calcium 8.3 L Magnesium 1.5 L Total Bilirubin 0.4 AST 42 ALT 19 Alkaline Phosphatase 86 Total Protein 6.0 L Albumin 2.7 L Quality VTE Prophylaxis VTE prophylaxis: pharmacologic ordered
[2024-10-28] MEDS: metroNIDAZOLE 500 MG/ISO 100ML 500 MG/100 ML BAG 100 MG IVPB ×3 (10:13→23:44)
[2024-10-28] MEDS: MAGNESIUM SULFATE 3GM/D5W100ML 3 GM/100 ML BAG IVPB (12:29)
[2024-10-28 14:11] LABS: Magnesium 1.8 mg/dL (1.6-2.3)
--- NOTE | 2024-10-28 14:14 | P.PN_ITS ---
Progress Note: A&P Assessment and Plan (1) Diverticulitis of intestine with perforation without abscess: Code(s): K57.80 - Diverticulitis of intestine, part unspecified, with perforation and abscess without bleeding Status: Acute Assessment and Plan: Pt doing well today. Minimal lower abd pain. Having bowel movements. WBC normal. Tolerating low fiber diet well. Continue IV abx today. If still tolerating solid food tomorrow and no significant abd pain, then can discharge home tomorrow on oral abx from general surgery standpoint. Subjective Date/time seen: 10/28/24 14:14 Interval history: Pt is feeling better. Got solid low fiber diet this am. Tolerated it well. Had 2 BMs this am. WBC now normal. Minimal lower abd pain. Exam GI: Other: Abd soft, nondistended, minimal lower abd tenderness, no guarding, no rebound, benign. Objective Data Vital Signs Vital Signs: Vital Signs - 24 hr 10/27/24 16:00 10/27/24 20:00 10/27/24 20:00 Temperature 36.8 C 36.7 C Pulse Rate 86 80 Respiratory Rate 18 18 Blood Pressure 142/70 H 159/87 H Pulse Oximetry 97 97 Oxygen Delivery Room Air 10/27/24 23:33 10/28/24 03:24 10/28/24 07:44 Temperature 36.7 C 36.5 C Pulse Rate 82 77 Respiratory Rate 20 20 Blood Pressure 142/71 H 136/65 Pulse Oximetry 94 95 95 Oxygen Delivery Room Air 10/28/24 08:00 10/28/24 08:00 10/28/24 12:00 Temperature 36.4 C L 36.6 C Pulse Rate 63 84 Respiratory Rate 18 18 Blood Pressure 144/73 H 158/80 H Pulse Oximetry 95 96 Oxygen Delivery Room Air Intake/Output Intake/Output: Intake & Output 10/25/24 10/26/24 10/27/24 10/28/24 23:59 23:59 23:59 23:59 Intake Total 1800 3040 2410 1770 Output Total 700 1550 1500 550 Balance 1100 2725 638 3472 Meds/Results Medications: Active Medications Generic Name Dose Route Start Last Admin Trade Name Freq PRN Reason Stop Dose Admin Acetaminophen 650 mg 10/28/24 09:53 Acetaminophen 325 Mg Tablet PO Q4H PRN Mild Pain (1-3) or Fever Albuterol 1 puff 10/24/24 22:50 10/27/24 05:20 Albuterol Sulfate (*Sp) Aerosol 1 Puff INHALATION 1 puff Q4H PRN Administration Shortness Of Breath Atorvastatin Calcium 40 mg 10/25/24 12:00 10/28/24 09:35 Atorvastatin 40 Mg Tablet PO 40 mg DAILY MARIA ANTONIA Administration Chlordiazepoxide HCl 25 mg 10/24/24 22:37 Chlordiazepoxide (*Crx) 25 Mg Capsule PO Q8H PRN withdrawal symptoms & CIWA < 8 Fluticasone Propionate 1 spray 10/24/24 22:50 10/27/24 22:29 Fluticasone Propionate 0.05% Na Spr 16 Gm Btl (*Bkc) NASAL 1 spray DAILY PRN Administration allergy symptoms Fluticasone/Umeclidinium/Vilanterol 1 puff 10/25/24 09:00 10/28/24 07:42 Fluticasone/Umeclidin/Vilanter 200-62.5-25 Mcg Ellipta INHALATION 1 puff DAILY MARIA ANTONIA Administration Hydrochlorothiazide 12.5 mg 10/27/24 09:00 10/28/24 09:35 Hydrochlorothiazide 12.5 Mg Capsule PO 12.5 mg QAM MARIA ANTONIA Administration Hydromorphone HCl 0.5 mg 10/24/24 22:37 10/27/24 22:32 Hydromorphone Hcl Inj (*Crx) 1 Mg/Ml Syr IV PUSH 0.5 mg Q3H PRN Administration Pain Rated 4-6 Hydromorphone HCl 1 mg 10/25/24 10:08 10/28/24 03:35 Hydromorphone Hcl Inj (*Crx) 1 Mg/Ml Syr IV PUSH 1 mg Q3H PRN Administration Pain Rated 7-10 Sodium Chloride 1,000 mls @ 85 mls/hr 10/24/24 18:15 10/28/24 03:36 Normal Saline Iv IV CONT 85 mls/hr .[id number] MARIA ANTONIA Administration Metronidazole 500 mg in 100 mls @ 100 mls/hr 10/25/24 00:00 10/28/24 10:13 Flagyl 500 Mg/Iso Soln 100 Ml IVPB 100 mls/hr Q8H MARIA ANTONIA Administration Ceftriaxone Sodium 1 gm in 50 mls @ 100 mls/hr 10/25/24 09:00 10/28/24 11:18 Rocephin 1 Gm/Ns 50 Ml IVPB 100 mls/hr Q12HR MARIA ANTONIA Administration Ibuprofen 800 mg in 200 mls @ 400 mls/hr 10/26/24 11:30 10/28/24 09:29 Caldolor 800 Mg/200 Ml IVPB 400 mls/hr Q6H PRN Administration Pain Rated 1-3 Lisinopril 20 mg 10/27/24 09:00 10/28/24 09:35 Lisinopril 20 Mg Tablet PO 20 mg QAM MARIA ANTONIA Administration Lorazepam 1 mg 10/24/24 22:37 Lorazepam Inj (*Crx) 2 Mg/Ml Vial IV PUSH Q2H PRN CIWA 8-15 Lorazepam 2 mg 10/24/24 22:37 Lorazepam Inj (*Crx) 2 Mg/Ml Vial IV PUSH Q2H PRN CIWA > 15 Mirabegron 50 mg 10/25/24 13:00 10/28/24 09:35 Mirabegron 50 Mg Er Tablet PO 50 mg DAILY MARIA ANTONIA Administration Montelukast Sodium 10 mg 10/25/24 21:00 10/27/24 20:40 Montelukast Sodium 10 Mg Tablet PO 10 mg HS MARIA ANTONIA Administration Nicotine 1 patch 10/24/24 22:40 10/28/24 09:33 Nicotine (*Pbkc) 21 Mg Patch TRANSDERM 1 patch DAILY MARIA ANTONIA Administration Ondansetron HCl 4 mg 10/24/24 18:12 Ondansetron Inj 4 Mg/2 Ml Vial IV PUSH Q4H PRN Nausea Oxybutynin Chloride 10 mg 10/25/24 12:00 10/28/24 09:35 Oxybutynin Chloride Xl 5 Mg Tab.Er.24 PO 10 mg DAILY MARIA ANTONIA Administration Sertraline HCl 100 mg 10/25/24 21:00 10/27/24 20:40 Sertraline Hcl 50 Mg Tablet PO 100 mg HS MARIA ANTONIA Administration Tamsulosin HCl 0.4 mg 10/25/24 12:00 10/28/24 09:35 Tamsulosin Hcl 0.4 Mg Capsule PO 0.4 mg DAILY MARIA ANTONIA Administration Thiamine HCl 100 mg 10/25/24 09:00 10/28/24 09:38 Thiamine Hcl 200 Mg/2 Ml Vial IV PUSH 100 mg QAM MARIA ANTONIA Administration Trazodone HCl 50 mg 10/24/24 23:50 10/27/24 22:29 Trazodone Hcl 50 Mg Tablet PO 50 mg HS MARIA ANTONIA Administration Radiology Results: ITS Impressions Abdomen/Pelvis CT 10/24/24 16:41 IMPRESSION: 1. Sigmoid diverticulitis with likely microperforation with small amount of likely reactive ascites and minimal extraluminal gas in the mesentery immediately adjacent to the diverticulitis. No abscess. 2. Likely reactive edematous wall thickening at the sigmoid colon as well as involving and adjacent short segment of small bowel. Labs Labs: Laboratory Results - last 24 hr 10/28/24 10/28/24 06:41 13:56 WBC 9.9 RBC 3.31 L Hgb 10.7 L Hct 31.5 L MCV 95.2 MCH 32.3 MCHC 34.0 RDW 12.8 Plt Count 276 MPV 8.9 Immature Gran % (Auto) 0.5 Neut % (Auto) 86.3 H Lymph % (Auto) 7.0 L [place] % (Auto) 4.9 Eos % (Auto) 1.0 Baso % (Auto) 0.3 Lymph # (Auto) 0.69 L [place] # (Auto) 0.5 Eos # (Auto) 0.1 Baso # (Auto) 0.0 Abs Immat Gran (auto) 0.05 H Absolute Neuts (auto) 8.5 H Absolute Nucleated RBC 0.000 Nucleated RBC % 0.0 Sodium 136 L Potassium 3.5 Chloride 103 Carbon Dioxide 30 Anion Gap 3 L BUN 2 L Creatinine 0.53 L Estim Creat Clear Calc 126 Estimated GFR > 60 Glucose 98 Calcium 8.3 L Magnesium 1.5 L 1.8 Total Bilirubin 0.4 AST 42 ALT 19 Alkaline Phosphatase 86 Total Protein 6.0 L Albumin 2.7 L
[2024-10-28] MEDS: MAGNESIUM SULF 2 GM/WATER 50ML 2 GM/50 ML BAG IVPB (16:36)
[2024-10-28] MEDS: traZODone HCL 50 MG TABLET PO (21:37)
[2024-10-28] MEDS: SERTRALINE HCL 50 MG TABLET 100 MG PO (21:37)
[2024-10-28] MEDS: ACETAMINOPHEN 325 MG TABLET 650 MG PO (21:38)
[2024-10-28] MEDS: MONTELUKAST SODIUM 10 MG TABLET PO (21:38)
[2024-10-29 04:00] VITALS: BP 148/83; PULSE 70; RESP 16; TEMP 36.7; O2SAT 96
[2024-10-29 07:01] LABS: Basophils Percent Auto 0.3 % (0.2-1.2); Eosinophils Absolute Auto 0.1 K/mm3 (0-0.3); Eosinophils Percent Auto 0.8 % (0-4.4); Hemoglobin 11.3 g/dL (14.0-18.0); Immature Granulocyte Absolute 0.09 K/mm3 (0.00-0.031); Immature Granulocyte Percent A 0.8 % (0-0.5); Lymphocytes Absolute Auto 0.85 K/mm3 (0.9-3.2); Lymphocytes Percent Auto 7.2 % (18.3-44.2); Mean Corpuscular HGB Conc 34.2 g/dl (32-36); Mean Corpuscular Hemoglobin 32.5 pg (26-34); Mean Corpuscular Volume 94.8 fl (80-100); Mean Platelet Volume 8.9 fl (7.4-10.4); Monocytes Absolute Auto 0.5 K/mm3 (0.1-0.6); Monocytes Percent Auto 4.2 % (2.6-8.5); Neutrophils Absolute Auto 10.2 K/mm3 (1.3-6.7); Neutrophils Percent Auto 86.7 % (45.5-73.1); Platelet Count Result 320 k/mm3 (150-375); Red Blood Count 3.48 M/mm3 (4.6-6.20); White Blood Count 11.8 K/mm3 (4.5-10.0)
[2024-10-29 07:09] LABS: Alanine Aminotransferase 24 U/L (6-50); Albumin Level 2.7 g/dL (3.5-5.1); Alkaline Phosphatase 91 U/L (38-126); Anion Gap 5 mmol/L (4-12); Aspartate Amino Transferase 54 U/L (17-59); Bilirubin,Total 0.4 mg/dL (0.2-1.3); Blood Urea Nitrogen 3 mg/dL (9-20); Calcium 7.8 mg/dL (8.4-10.2); Carbon Dioxide 29 mmol/L (22-30); Chloride 102 mmol/L (98-107); Estimated CRCL calculation 116 ml/min; Estimated Glomerular Filt Rate > 60; Glucose 96 mg/dL (65-110); Magnesium 1.7 mg/dL (1.6-2.3); Potassium 3.5 mmol/L (3.4-5.0); Sodium 136 mmol/L (137-145)
[2024-10-29] MEDS: SODIUM CHLORIDE 0.9% IV 1,000 ML 85 ML IV CONT (07:09)
[2024-10-29] MEDS: FLUTICASONE/UMECLIDIN/VILANTER 200-62.5-25 MCG ELLIPTA 1 PUFF INHALATION (07:50)
[2024-10-29 07:52] VITALS: O2SAT 93
[2024-10-29 08:00] VITALS: BP 169/87; PULSE 89; RESP 18; TEMP 36.7; O2SAT 95
[2024-10-29] MEDS: metroNIDAZOLE 500 MG/ISO 100ML 500 MG/100 ML BAG 100 MG IVPB (09:37)
[2024-10-29] MEDS: MAGNESIUM SULF 2 GM/WATER 50ML 2 GM/50 ML BAG IVPB (09:40)
[2024-10-29] MEDS: hydroCHLOROthiazide 12.5 MG CAPSULE PO (09:40)
[2024-10-29] MEDS: POTASSIUM CHLORIDE 20 MEQ ER TABLET 40 MEQ PO (09:40)
[2024-10-29] MEDS: TAMSULOSIN HCL 0.4 MG CAPSULE PO (09:41)
[2024-10-29] MEDS: ATORVASTATIN 40 MG TABLET PO (09:41)
[2024-10-29] MEDS: NICOTINE (*PBKC) 21 MG PATCH 1 PATCH TRANSDERM (09:41)
[2024-10-29] MEDS: lisinopriL 20 MG TABLET PO (09:41)
[2024-10-29] MEDS: MIRABEGRON 50 MG ER TABLET PO (09:41)
[2024-10-29] MEDS: oxyBUTYnin CHLORIDE XL 5 MG TAB.ER.24 10 MG PO (09:41)
[2024-10-29] MEDS: THIAMINE HCL 200 MG/2 ML VIAL 100 MG IV PUSH (09:45)
[2024-10-29] MEDS: MAGNESIUM OXIDE 400 MG TABLET PO (09:46)
--- NOTE | 2024-10-29 10:40 | P.DS_ITS ---
DS: Admitting Diagnosis Discharge Date 10/29/2024 Admitting Diagnosis Abdominal pain. DS: Discharge Diagnosis Discharge Diagnosis (1) Diverticulitis of intestine with perforation without abscess: Code(s): K57.80 - Diverticulitis of intestine, part unspecified, with perforation and abscess without bleeding Status: Acute (2) COPD (chronic obstructive pulmonary disease): Code(s): J44.9 - Chronic obstructive pulmonary disease, unspecified Status: Acute (3) Hypomagnesemia: Code(s): E83.42 - Hypomagnesemia Status: Acute (4) Hypokalemia: Code(s): E87.6 - Hypokalemia Status: Acute (5) Tobacco dependence: Code(s): F17.200 - Nicotine dependence, unspecified, uncomplicated Status: Acute (6) Alcohol abuse: Code(s): F10.10 - Alcohol abuse, uncomplicated Status: Acute (7) Hypertension: Code(s): I10 - Essential (primary) hypertension Status: Acute DS: Summary Hospital Course Hospital Course: * This is a 58-year-old male smoker with history of throat cancer status post radiation considered to be in remission, alcohol abuse, chronic obstructive pulmonary disease, hypertension, depression, and hepatitis-C which has been treated who presented to the emergency department via private vehicle for evaluation of abdominal pain. The patient provides the following history. * Patient came to the ER with worsening abdominal pain. In the ED: He was afe brile on arrival. Pulse has been a bit high but vital signs are otherwise stable. Labs were significant for WBC count of 21.3, sodium 136, potassium 3.1, chloride 95, carbon dioxide 33, BUN 12, creatinine 0.65, glucose 128, lipase 20. Urinalysis was unremarkable. CT of the abdomen and pelvis showed sigmoid diverticulitis with likely microperforation without abscess. He was started on ceftriaxone and metronidazole and is being admitted in this setting for further treatment and surgery consultation. * Surgery followed. Patient given NS@85 ml/hr along with IV Antibiotics and pain medications. Patient improved and was advanced to a low fiber diet. Patient tolerated well and was educated on diet by service attendant cafeteria. * Blood cultures no growth. * Patient cleared by surgery for discharge with oral Cipro and Flagyl. * Patient needed magnesium replaced during stay with IV Magnesium. Patient sent home with Magnesium Oxide 400 mg PO daily. BMP and Magnesium check in 1 week. Patient to follow up with PCP in one week. Status at Discharge Functional status at discharge: independent ambulation Overall status at discharge: patient is progressing back to baseline Time Spent with Patient Time attestation: Total time spent providing and/or coordinating discharge services: Time spent: Greater than 30 minutes Exam Const: General: comfortable and no acute distress Eyes: Sclera: sclerae normal Resp: Effort & Inspection: normal respiratory effort Auscultation: diminished lung sounds Cardio: Rate: regular rate Rhythm: regular rhythm GI: GI Palp: Yes Soft to palpation Auscultation: normal bowel sounds Skin: General skin exam: no rashes or lesions noted Extrem: General: no pedal edema Psych: Mental Status: mental status grossly normal Affect: normal affect DS: Data Data Completed and Pending Labs on day of discharge: Labs from last 24 hours 10/29/24 10/28/24 05:43 13:56 WBC 11.8 H RBC 3.48 L Hgb 11.3 L Hct 33.0 L MCV 94.8 MCH 32.5 MCHC 34.2 RDW 13.0 Plt Count 320 MPV 8.9 Immature Gran % (Auto) 0.8 H Neut % (Auto) 86.7 H Lymph % (Auto) 7.2 L [place] % (Auto) 4.2 Eos % (Auto) 0.8 Baso % (Auto) 0.3 Lymph # (Auto) 0.85 L [place] # (Auto) 0.5 Eos # (Auto) 0.1 Baso # (Auto) 0.0 Abs Immat Gran (auto) 0.09 H Absolute Neuts (auto) 10.2 H Absolute Nucleated RBC 0.000 Nucleated RBC % 0.0 Sodium 136 L Potassium 3.5 Chloride 102 Carbon Dioxide 29 Anion Gap 5 BUN 3 L Creatinine 0.58 L Estim Creat Clear Calc 116 Estimated GFR > 60 Glucose 96 Calcium 7.8 L Magnesium 1.7 1.8 Total Bilirubin 0.4 AST 54 ALT 24 Alkaline Phosphatase 91 Total Protein 6.0 L Albumin 2.7 L Preliminary micro results at discharge 10/25/24 09:14 Blood Culture - Preliminary Blood 10/25/24 09:08 Blood Culture - Preliminary Blood Discharge Plan Discharge Attending physician on discharge: Ugo Linares Consulting providers: Drake Ball Discharging Clinician: Ivonne Rodgers Anticipated Discharge Date/Time: 10/29/24 13:00 Patient Disposition: Home, Self-Care Activity: may shower and as tolerated Diet: low fiber Discharge Instructions: * Patient to stay on low-fiber diet at home for about 4 weeks. Then he should switch to a high-fiber diet. * Patient recently had a colonoscopy so it does not need to get another colonoscopy at this time. * Finish course of oral antibiotics. * No need to follow-up with Dr. Ball in the office unless patient has continuing abdominal pain or recurrent diverticulitis. * Take Magnesium Oxide 400 mg oral daily. * BMP and Magnesium checked at lab in one week. * Follow up with primary in one week. Thank you for entrusting [facility] with your healthcare! Patient Instructions: Antibiotic Form, How to Stop Smoking (DC), Diverticulitis (DC), Low Fiber Diet (DC), Hypomagnesemia (DC), Alcohol Dependence (DC) Patient Language: Moroccan Stand Alone Forms: General Discharge Information Follow-up/Referrals: Hao,TIARA Hdz [Primary Care Provider] - 1 Week Discharge Medications: New ciprofloxacin HCl 500 mg tablet 500 mg PO Q12H Qty: 20 0RF metronidazole 500 mg tablet 500 mg PO Q8H Qty: 30 0RF magnesium oxide 400 mg (241.3 mg magnesium) Tablet 400 mg PO DAILY Qty: 30 0RF Continued atorvastatin 40 mg tablet 40 mg PO DAILY lisinopril-hydrochlorothiazide 20-12.5 mg tablet 1 tablet PO DAILY albuterol sulfate 90 mcg/actuation HFA aerosol inhaler 1 puff inhalation Q4H PRN (Reason: SOB) trazodone 50 mg tablet 100 mg PO HS oxybutynin chloride 10 mg tablet extended release 24hr 10 mg PO DAILY sertraline 100 mg tablet 100 mg PO HS tamsulosin 0.4 mg capsule 0.4 mg PO DAILY montelukast 10 mg tablet 10 mg PO HS mirabegron [Myrbetriq] 50 mg Tablet Extended Release 24 Hr 50 mg PO DAILY Trelegy Ellipta 200-62.5-25 mcg blister with device 1 ea INHALATION DAILY fluticasone propionate [24 Hour Allergy Relief] 50 mcg/actuation spray,suspension 1 spray intranasal DAILY PRN (Reason: allergy symptoms) Rx Instructions: administer into each nostril Other Ambulatory Orders: Basic Metabolic Panel (Routine) Timeframe: 1 Week Location: Determined by Patient Ordered By: Ivonne Rodgers Magnesium (Routine) Timeframe: 1 Week Location: Determined by Patient Ordered By: Ivonne Rodgers Date of admission: 10/24/24 18:13 Primary Care Provider: HaoVerenice Admitting Provider: Bailey Ayala Attending physician on admission: Bailey Ayala Condition: Stable Hospitalist MIPS Heart Failure (Exclusion) Patient has history of Heart Transplant or Left Ventricular Assistive Device?: No IF YES, STOP HERE Heart Failure (Qualifier) Patient has current or prior documentation of LVEF less than or equal to 40%, or mod/servere depressed LVSF?: No IF NO, STOP HERE
--- NOTE | 2024-10-29 11:44 | P.PN_ITS ---
Progress Note: A&P Assessment and Plan (1) Diverticulitis of intestine with perforation without abscess: Code(s): K57.80 - Diverticulitis of intestine, part unspecified, with perforation and abscess without bleeding Status: Acute Assessment and Plan: Patient has responded well to non operative management of his 1st episode of sigmoid diverticulitis with micro perforation. He is now tolerating a low-fiber diet. He has no abdominal pain. He can discharge home today from a general surgery standpoint. He does not need to follow-up with General surgery in the office after discharge unless he continues to have abdominal pain or recurrent diverticulitis since this was his 1st episode. He should stay on a low-fiber diet for another 4 weeks and then switch to a high-fiber diet. A 10 day course of Cipro and Flagyl orally was prescribed and he should pick that up at the pharmacy and take the whole course of oral antibiotics. Subjective Date/time seen: 10/29/24 11:44 Interval history: Patient doing well today. Denies any abdominal pain. Has been tolerating low- fiber diet without problems. Having bowel movements. Exam GI: Other: Abdomen is soft and nondistended. Nontender. Exam is benign. Objective Data Vital Signs Vital Signs: Vital Signs - 24 hr 10/28/24 12:00 10/28/24 16:00 10/28/24 20:00 Temperature 36.6 C 36.6 C 36.3 C L Pulse Rate 84 74 75 Respiratory Rate 18 18 16 Blood Pressure 158/80 H 125/65 154/92 H Pulse Oximetry 96 96 98 Oxygen Delivery 10/28/24 20:00 10/28/24 23:07 10/29/24 04:00 Temperature 36.8 C 36.7 C Pulse Rate 77 70 Respiratory Rate 14 16 Blood Pressure 147/74 H 148/83 H Pulse Oximetry 95 96 Oxygen Delivery Room Air 10/29/24 07:52 10/29/24 08:00 10/29/24 08:00 Temperature 36.7 C Pulse Rate 89 Respiratory Rate 18 Blood Pressure 169/87 H Pulse Oximetry 93 95 Oxygen Delivery Room Air Room Air Intake/Output Intake/Output: Intake & Output 10/26/24 10/27/24 10/28/24 10/29/24 23:59 23:59 23:59 23:59 Intake Total 3040 2410 3470 890 Output Total 1550 1500 2000 900 Balance 1777 427 1407 -10 Meds/Results Medications: Active Medications Generic Name Dose Route Start Last Admin Trade Name Freq PRN Reason Stop Dose Admin Acetaminophen 650 mg 10/28/24 09:53 10/28/24 21:38 Acetaminophen 325 Mg Tablet PO 650 mg Q4H PRN Administration Mild Pain (1-3) or Fever Albuterol 1 puff 10/24/24 22:50 10/27/24 05:20 Albuterol Sulfate (*Sp) Aerosol 1 Puff INHALATION 1 puff Q4H PRN Administration Shortness Of Breath Atorvastatin Calcium 40 mg 10/25/24 12:00 10/29/24 09:41 Atorvastatin 40 Mg Tablet PO 40 mg DAILY MARIA ANTONIA Administration Chlordiazepoxide HCl 25 mg 10/24/24 22:37 Chlordiazepoxide (*Crx) 25 Mg Capsule PO Q8H PRN withdrawal symptoms & CIWA < 8 Fluticasone Propionate 1 spray 10/24/24 22:50 10/27/24 22:29 Fluticasone Propionate 0.05% Na Spr 16 Gm Btl (*Bkc) NASAL 1 spray DAILY PRN Administration allergy symptoms Fluticasone/Umeclidinium/Vilanterol 1 puff 10/25/24 09:00 10/29/24 07:50 Fluticasone/Umeclidin/Vilanter 200-62.5-25 Mcg Ellipta INHALATION 1 puff DAILY MARIA ANTONIA Administration Hydrochlorothiazide 12.5 mg 10/27/24 09:00 10/29/24 09:40 Hydrochlorothiazide 12.5 Mg Capsule PO 12.5 mg QAM MARIA ANTONIA Administration Hydromorphone HCl 0.5 mg 10/24/24 22:37 10/27/24 22:32 Hydromorphone Hcl Inj (*Crx) 1 Mg/Ml Syr IV PUSH 0.5 mg Q3H PRN Administration Pain Rated 4-6 Hydromorphone HCl 1 mg 10/25/24 10:08 10/28/24 03:35 Hydromorphone Hcl Inj (*Crx) 1 Mg/Ml Syr IV PUSH 1 mg Q3H PRN Administration Pain Rated 7-10 Metronidazole 500 mg in 100 mls @ 100 mls/hr 10/25/24 00:00 10/29/24 09:37 Flagyl 500 Mg/Iso Soln 100 Ml IVPB 100 mls/hr Q8H MARIA ANTONIA Administration Ceftriaxone Sodium 1 gm in 50 mls @ 100 mls/hr 10/25/24 09:00 10/29/24 09:38 Rocephin 1 Gm/Ns 50 Ml IVPB 100 mls/hr Q12HR MARIA ANTONIA Administration Ibuprofen 800 mg in 200 mls @ 400 mls/hr 10/26/24 11:30 10/28/24 09:29 Caldolor 800 Mg/200 Ml IVPB 400 mls/hr Q6H PRN Administration Pain Rated 1-3 Lisinopril 20 mg 10/27/24 09:00 10/29/24 09:41 Lisinopril 20 Mg Tablet PO 20 mg QAM MARIA ANTONIA Administration Lorazepam 1 mg 10/24/24 22:37 Lorazepam Inj (*Crx) 2 Mg/Ml Vial IV PUSH Q2H PRN CIWA 8-15 Lorazepam 2 mg 10/24/24 22:37 Lorazepam Inj (*Crx) 2 Mg/Ml Vial IV PUSH Q2H PRN CIWA > 15 Magnesium Oxide 400 mg 10/29/24 09:00 10/29/24 09:46 Magnesium Oxide 400 Mg Tablet PO 400 mg DAILY MARIA ANTONIA Administration Mirabegron 50 mg 10/25/24 13:00 10/29/24 09:41 Mirabegron 50 Mg Er Tablet PO 50 mg DAILY MARIA ANTONIA Administration Montelukast Sodium 10 mg 10/25/24 21:00 10/28/24 21:38 Montelukast Sodium 10 Mg Tablet PO 10 mg HS MARIA ANTONIA Administration Nicotine 1 patch 10/24/24 22:40 10/29/24 09:41 Nicotine (*Pbkc) 21 Mg Patch TRANSDERM 1 patch DAILY MARIA ANTONIA Administration Ondansetron HCl 4 mg 10/24/24 18:12 Ondansetron Inj 4 Mg/2 Ml Vial IV PUSH Q4H PRN Nausea Oxybutynin Chloride 10 mg 10/25/24 12:00 10/29/24 09:41 Oxybutynin Chloride Xl 5 Mg Tab.Er.24 PO 10 mg DAILY MARIA ANTONIA Administration Sertraline HCl 100 mg 10/25/24 21:00 10/28/24 21:37 Sertraline Hcl 50 Mg Tablet PO 100 mg HS MARIA ANTONIA Administration Tamsulosin HCl 0.4 mg 10/25/24 12:00 10/29/24 09:41 Tamsulosin Hcl 0.4 Mg Capsule PO 0.4 mg DAILY MARIA ANTONIA Administration Thiamine HCl 100 mg 10/25/24 09:00 10/29/24 09:45 Thiamine Hcl 200 Mg/2 Ml Vial IV PUSH 100 mg QAM MARIA ANTONIA Administration Trazodone HCl 50 mg 10/24/24 23:50 10/28/24 21:37 Trazodone Hcl 50 Mg Tablet PO 50 mg HS MARIA ANTONIA Administration Radiology Results: ITS Impressions Abdomen/Pelvis CT 10/24/24 16:41 IMPRESSION: 1. Sigmoid diverticulitis with likely microperforation with small amount of likely reactive ascites and minimal extraluminal gas in the mesentery immediately adjacent to the diverticulitis. No abscess. 2. Likely reactive edematous wall thickening at the sigmoid colon as well as involving and adjacent short segment of small bowel. Labs Labs: Laboratory Results - last 24 hr 10/28/24 10/29/24 13:56 05:43 WBC 11.8 H RBC 3.48 L Hgb 11.3 L Hct 33.0 L MCV 94.8 MCH 32.5 MCHC 34.2 RDW 13.0 Plt Count 320 MPV 8.9 Immature Gran % (Auto) 0.8 H Neut % (Auto) 86.7 H Lymph % (Auto) 7.2 L [place] % (Auto) 4.2 Eos % (Auto) 0.8 Baso % (Auto) 0.3 Lymph # (Auto) 0.85 L [place] # (Auto) 0.5 Eos # (Auto) 0.1 Baso # (Auto) 0.0 Abs Immat Gran (auto) 0.09 H Absolute Neuts (auto) 10.2 H Absolute Nucleated RBC 0.000 Nucleated RBC % 0.0 Sodium 136 L Potassium 3.5 Chloride 102 Carbon Dioxide 29 Anion Gap 5 BUN 3 L Creatinine 0.58 L Estim Creat Clear Calc 116 Estimated GFR > 60 Glucose 96 Calcium 7.8 L Magnesium 1.8 1.7 Total Bilirubin 0.4 AST 54 ALT 24 Alkaline Phosphatase 91 Total Protein 6.0 L Albumin 2.7 L
== END 2024-10-29 13:22 | disposition home or self-care (01) | DRG 392 ==
LOC: ANHED 17:34 → ANH3MEDSUR 18:46
PROVIDERS: Nurse Practitioner Family; Physician Assistant; Admitting Provider Hospitalist; Emergency Provider Emergency Medicine; PCP Physician Assistant; Visit Provider Nurse Practitioner Family
DX: K57.20 Diverticulitis of large intestine with perforation and abscess without bleeding (principal); J44.9 Chronic obstructive pulmonary disease, unspecified; E83.42 Hypomagnesemia; E87.6 Hypokalemia; I10 Essential (primary) hypertension; I73.9 Peripheral vascular disease, unspecified; F10.10 Alcohol abuse, uncomplicated; F17.210 Nicotine dependence, cigarettes, uncomplicated; Z66 Do not resuscitate; Z85.89 Personal history of malignant neoplasm of other organs and systems; Z86.19 Personal history of other infectious and parasitic diseases
CPT/HCPCS: 36415; 74177; 80053; 81003; 83605; 83690; 83735; 85025; 85027; 87040; 93005; 94640; 96365; 96367; 96375; 96376; 99285; A9270; J0696; J1171; J1741; J1836; J2405; J3411; J3475; J3480; J7030; J7040; Q9967

== ENCOUNTER 2025-04-28 13:04 | Emergency (ER) | payer MEDICARE, MEDICAID, SELFPAY ==
--- NOTE | ~2025-04-28 | XR_ITS ---
EXAMINATION: XR chest 2V 04/28/2025 13:41 INDICATION: Shortness of breath. Left chest pain. PROCEDURE: 2 view chest COMPARISON: Chest dated 08/17/2022 FINDINGS: There are multiple bilateral nodular opacities, suspicious for malignancy. Heart size gus l. The lungs are hyperinflated which is consistent with, but not diagnostic of chronic obstructive pu lmonary disease. The cardiomediastinal silhouette is within normal limits. There are no pleural eff usions. There is no pneumothorax suspected. IMPRESSION: 1: Bilateral nodular opacities of the lungs, suspicious for metastatic disease. Correlation with CT chest recommended. Reviewed, dictated and finalized at location A. IMPRESSION: 1: Bilateral nodular opacities of the lungs, suspicious for metastatic disease . Correlation with CT chest recommended.
--- OUTSIDE RECORDS SUMMARY | 2025-04-28 13:07 | XMS_ITS | Continuity of Care Document ---
Author Organization [facility] Address [id number] [place] [address] [address] [place] [address] Phone Care Team Providers Care Rewinder Operator Helper Name Role Phone Escobedo OD, Boogie Unavailable Unavailable Advance Directives Directive Yes / No Effective Date File Name No Information Encounters Encounter Description Practice Location Reason(s) For Visit Diagnoses Date Provider Providers Copied on Encounter [facility], [address] [place] [address] [address], [place], [place], [id number], [place] tel:[phone] [facility] No Information [phone] Escobedo OD Boogie. [address] , [address], [place], [address], [place]. tel:[phone] Family History Family Member Type Diagnosis Age At Onset No Information Payers Payer name Insurance type Covered libertarian ID Authoriza tion(s) No Information Social History Type Description Quantity Date Captured Comments Sex Male Smoking Status No Information Chief Complaint And Reason For Visit No Information Reason For Referral Reason For Referral No Information History Of Present Illness Encounter Date Complaint History Of Prese nt Illness No Information Functional Status Date Functional Assessmen t No Information Instructions Date Instruction Additional Infor mation No Information Assessments Type Assessment Date No Information Patient Care Teams Name Effective Dates (start - stop) Status Members No Information
[2025-04-28 13:20] VITALS: BP 123/73; PULSE 98; RESP 24; TEMP 36.5; O2SAT 91
--- NOTE | 2025-04-28 13:25 | ECG_ITS ---
Test Date: 2025-04-28 13:54:37 Measurements Intervals [place] Rate: 79 P: 76 TN: 144 QRS: 69 QRSD: 89 T: 71 QT: 417 QTc: 479 Interpretive Statements SINUS RHYTHM WITH OCCASIONAL ATRIAL PREMATURE COMPLEXES POSSIBLE RIGHT ATRIAL ENLARGEMENT [0.25mV P WAVE] POSSIBLE LEFT ATRIAL ENLARGEMENT [-0.1mV P WAVE IN V1/V2] ABNORMAL ECG Compared to ECG 10/24/2024 19:07:49 PACS ARE SEEN Electronically Signed On 04-29-2025 08:06:30 CDT by Fercho Rose M.D.
[2025-04-28 13:55] VITALS: PULSE 73; RESP 20; O2SAT 96
[2025-04-28 14:11] LABS: Hematocrit 42.0 % (42.0-52.0); Hemoglobin 14.7 g/dL (14.0-18.0); Immature Granulocyte Percent A 0.6 % (0-0.5); Lymphocytes Absolute Auto 1.35 K/mm3 (0.9-3.2); Mean Corpuscular HGB Conc 35.0 g/dl (32-36); Mean Corpuscular Hemoglobin 31.3 pg (26-34); Mean Corpuscular Volume 89.4 fl (80-100); Nucleated Red Blood Cells Absolute Auto 0.000 K/mm3 (0.0-0.012); Nucleated Red Blood Cells Perc 0.0 % (0.0-0.2); Platelet Count Result 299 k/mm3 (150-375); Red Blood Count 4.70 M/mm3 (4.6-6.20); White Blood Count 8.4 K/mm3 (4.5-10.0)
[2025-04-28 14:25] LABS: Alanine Aminotransferase 21 U/L (6-50); Albumin Level 4.0 g/dL (3.5-5.1); Alkaline Phosphatase 113 U/L (38-126); Anion Gap 8 mmol/L (4-12); Aspartate Amino Transferase 45 U/L (17-59); Bilirubin,Total 0.7 mg/dL (0.2-1.3); Blood Urea Nitrogen 6 mg/dL (9-20); Calcium 9.2 mg/dL (8.4-10.2); Carbon Dioxide 37 mmol/L (22-30); Chloride 86 mmol/L (98-107); Estimated CRCL calculation 80 ml/min; Estimated Glomerular Filt Rate > 60; Glucose 112 mg/dL (65-110); Potassium 2.7 mmol/L (3.4-5.0); Sodium 131 mmol/L (137-145); Total Protein 7.7 g/dL (6.3-8.2)
--- NOTE | 2025-04-28 15:47 | PC.NURSE ---
Pt requests to have IV removed and leave. Pt exits ED in NAD.
--- OUTSIDE RECORDS SUMMARY | 2025-04-28 16:23 | XMS_ITS | Clinical Summary ---
Author Organization [facility] Address Formerly [facility] [place] [address] Care Team Providers Care Jewelry Department Supervisor Name Role Phone Unavailable Primary Care Provider Unavailabl e Social History Tobacco Use Types Packs/Day Years Used Date Smoking Tobacco: Never Assessed Sex and Gender Information Value Date Recorded Sex Assigned at Not on file Legal Sex Male 5:29 PM CDT Gender Identity Not on file Sexual Orientation Not on file Plan of Treatment Health Maintenance Due Date Last Done Comments Colorectal Cancer Screening Colonoscopy (10 Years) 1964 Annual Physical 1967 Hepatitis C 1982 DTaP, Tdap and Td Vaccines ( 1 - Tdap) 1983 Pneumococcal Vaccine: 50+ Ye ars (1 of 1 - PCV) 2014 Zoster Vaccines (1 of 2) 2014 COVID-19 Vaccine ( - 2023-2 5 season) 2024 RSV Immunization or 60+ Years (1 - 1-dose 75+ series) 2039 Meningococcal B Vaccine Aged Out No l onger eligible based on patient's age to complete this topic Meningococcal Vaccine Aged Out No sil griselda eligible based on patient's age to complete this topic RSV Immunizations Under 20 Months Aged Out No longer eligible based on patient's age to complete this topic
--- OUTSIDE RECORDS SUMMARY | 2025-04-28 16:23 | XMS_ITS | Clinical Summary ---
Author Organization [facility] Address [address] [address] Phone Care Team Providers Care Mash Preparatory Operator Name Role Phone Boogie Almaguer DO Unavailable [phone] Osmar Thomas MD Primary Care Provider [phone] Allergies No known active allergies Medications lisinopril-hydroCH LOROthiazide (PRINZIDE, ZESTORETIC) 20-12.5 MG Tablet 09/01/2016 A ctive MAVYRET 100-40 MG Tablet 0 02/10/2019 Active Active Problems Problem Noted Date Diagnosed Date Chronic hepatitis C without hepatic coma 017 Family History Medical History Relation Name Comments Breast Cancer Mother Relation Name Status Comments Father Accidental Mother Social History Tobacco Use Types Packs/Day Years Used Date Smoking Tobacco: Every Day Cigarettes 1.5 35 Smokeless Tobacco: Never Tobacco Cessation:Ready to Q uit: No; Counseling Given: Yes Alcohol Use Standard Drinks/Week Comments Not Currently 0 (1 standard drink = 0.6 oz pur e alcohol) 8-10 per day Sex and Gender Information Value Date Recorded Sex Assigned at Not on file Legal Sex Male 9:37 AM CDT Gender Identity Not on file Sexual Orientation Not on file Last Filed Vital Signs Vital Sign Reading Time Taken Comments Blood Pressure 118/78 02/20/2019 1:18 PM CDT Pulse 74 02/20/2019 1:18 PM CDT Temperature 36.2 C (97.1 F) 02/20/2019 1:18 PM CDT Respiratory Rate 16 02/20/2019 1:18 PM CDT Oxygen Saturation 94% 02/20/2019 1:18 PM CDT Inhaled Oxygen Concentration - - Weight 64 kg (141 lb) 02/20/2019 1:18 PM CDT Height 175.3 cm (5' 9) 02/20/2019 1:18 PM CDT Body Mass Index 20.82 02/20/2019 1:18 PM CDT Plan of Treatment Health Maintenance Due Date Last Done Comments TdaP Immunization 1965 Pneumococcal Immunization (5 0+ years) (1 of 2 - PCV) 1983 Cologuard 2009 Immunochemical Fecal Occult Blood 2009 Zoster Immunization (1 of 2) 2014 Colonoscopy 11/24/2020 11/24/2018, 02/04/2017 Colorectal Cancer Screening 11/24/2020 SARS-COV-2 Immunization (1 - season) 2024 Hepatitis B Immunization (1 of 3 - Risk 3-dose series) 2024 Respiratory Syncytial Virus (RSV) Immunization (Adult) (1 - Risk 60-74 years 1-dose series) 2024 Influenza Immunization (#1) 2025 PSA Discussion Discontinued 09/07/2018 Human Papillomavirus (HPV) Immunization Aged Out No longer eligible based on patient's age to complete this topic Meningococcal Immunization (ACWY) Aged Out No longer eligible based on patient's age to complete this topic Rotavirus Immunization Aged Out No lo nger eligible based on patient's age to complete this topic Procedures Procedure Name Priority Date/Time Associated Diagnosis Comments COLONOSCOPY Routine 11/24/2018 PSA SCREEN Routine 09/07/2018 from Last 3 Months or Most Recently Relevant to Health Maintenance Results * COLONOSCOPY (11/24/2018) us Boogie Almaguer DO PROCEDURE/MINOR SURGICAL ORDERA BLES Final Result * PSA SCREEN (09/07/2018) PSA (PROSTATE SPECIFIC ANTIGEN) 1.6 ng/mL Blood specimen (specimen) 09/07/2018 us Honorio Victoria CHEMISTRY ORDERABLES Final Resul t from Last 3 Months or Most Recently Relevant to Health Maintenance Insurance [facility] Care Teams Mash Preparatory Operator Relationship Specialty Start Date End Date Osmar Thomas MD [address] [place] [address] PCP - General Internal Medicine 11/05/16 Boogie Almaguer DO Gastroenterology 11/05/16
--- OUTSIDE RECORDS SUMMARY | 2025-04-28 16:23 | XMS_ITS | Continuity of Care Document ---
Author Organization [facility] Address [address] [place] [address] [address] [place] [address] Phone Care Team Providers Care Cloth Sander Name Role Phone Escobedo OD, Boogie Unavailable Unavailable Advance Directives Directive Yes / No Effective Date File Name No Information Encounters Encounter Description Practice Location Reason(s) For Visit Diagnoses Date Provider Providers Copied on Encounter [facility], [address] [place] [address] [address], [place], [place], [id number], [place] tel:[phone] [facility] No Information [phone] Escobedo OD Boogie. [address] , [address], [place], [address], [place]. tel:[phone] Family History Family Member Type Diagnosis Age At Onset No Information Payers Payer name Insurance type Covered republican ID Authoriza tion(s) No Information Social History [...]
== END 2025-04-28 17:05 | disposition left against medical advice (07) ==
PROVIDERS: Emergency Provider Emergency Medicine; PCP Physician Assistant
DX: R07.1 Chest pain on breathing (principal)
CPT/HCPCS: 36415; 71046; 80053; 85025; 93005; 99199

== ENCOUNTER 2025-07-11 12:42 | Outpatient (CLI) | payer MEDICARE, MEDICAID, SELFPAY ==
--- OUTSIDE RECORDS SUMMARY | 2025-07-11 12:50 | XMS_ITS | Clinical Summary ---
Author Organization [facility] Address [address] [place] [address] Care Team Providers Care Radio Technician Name Role Phone Verenice Bui PA-C Primary Care Provider Source Comments [facility],non-owned Affiliates and Associated Physician Practices is amultiple site organization consisting of ambulatory clinics and hospital sitesin [place], [place], [place] and [place]. This disclosure is being madepursuant to the Care Everywhere program and may not contain all information available regarding this patient. Last updated 18.[facility] Allergies No known active allergies Medications * Be aware that medications may not be up to date on this document. Alwaysverify current medications with the patient. tamsulosin (Flomax) 0.4 MG capsule 1 capsule 2 Active sertraline (Zoloft) 100 MG tablet 1 tablet 2 Active finasteride (Proscar) 5 MG tablet 1 tablet 2 Active atorvastatin (Lipitor) 40 MG tablet 1 tablet Active albuterol HFA (Proventil; Ventolin; Proair) 108 (90 Base) MCG/ACT inhaler 1 puff as needed Active fluticasone-erin meterol (Advair/Wixela) 500-50 MCG/ACT inhaler Inhale 1 (one) puff by mouth 2 times daily Active fluticasone propionate (Flonase) 50 MCG/ACT nasal spray 1 spray in each nostril 2 Active tiotropium (Spiriva) 18 MCG inhalation capsule 1 capsule by inhaling the contents of the capsule using the HandiHaler device 3 Active lisinopril-hydr oCHLOROthiazide (Prinzide; Zestoretic) 20-12.5 MG tablet 1 tablet Active montelukast (Singulair) 10 MG tablet 1 tablet 2 Active traZODone (Desyrel) 50 MG tablet 2 tablet at bedtime as needed 2 Active Active Problems No known active problems Social History Tobacco Use Types Packs/Day Years Used Date Smoking Tobacco: Every Day Cigarettes Smokeless Tobacco: Never Tobacco Cessation:Ready to Q uit: Yes; Counseling Given: Yes Alcohol Use Standard Drinks/Week Comments Yes 0 (1 standard drink = 0.6 oz pur e alcohol) Sex and Gender Information Value Date Recorded Sex Assigned at Not on file Legal Sex Male 10:59 AM [employer] Gender Identity Not on file Sexual Orientation Not on file Last Filed Vital Signs Vital Sign Reading Time Taken Comments Blood Pressure - - Pulse - - Temperature - - Respiratory Rate - - Oxygen Saturation - - Inhaled Oxygen Concentration - - Weight 62.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 (137 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[employer] Height 176.5 cm (5' 9.5) 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 Body Mass Index 19.94 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 [employer] Plan of Treatment Health Maintenance Due Date Last Done Comments COLOGUARD (AGES 45-75) - COL ON CA SCREENING 1964 COLON MONITORING 1964 COLONOSCOPY - COLON CA SCREENING 1964 CT COLONOGRAPHY - COLON CA SCREENING 1964 Colorectal Cancer Screening 1964 FIT - COLON CA SCREENING 1964 FLEX SIG - COLON CA SCREENING 1964 HIV SCREENING 1979 HEPATITIS C SCREENING 11/21/1982 DTAP/TDAP/TD VACCINES (1 - Tdap) 1983 PNEUMOCOCCAL VACCINE 50+ (1 of 2 - PCV) 1983 ZOSTER VACCINE (1 of 2) 2014 DEPRESSION SCREENING 10/11/2024 HEPATITIS B VACCINE (1 of 3 - Risk 3-dose series) 2024 COVID-19 VACCINE ( - 2023-2 5 season) 2025 INFLUENZA VACCINE (#1) 2025 Respiratory Syncytial Virus (RSV) Vaccine Pt: or over 60 yrs (1 - 1-dose 75+ series) 2039 HIB VACCINE Aged Out No longer eligi ble based on patient's age to complete this topic HPV VACCINE Aged Out No longer eligi ble based on patient's age to complete this topic MENINGOCOCCAL (Group B) VACC INE SHARED DECISION-MAKING Aged Out No longer eligibl e based on patient's age to complete this topic MENINGOCOCCAL GROUPS A/C/Y/W VACCINE Aged Out No longer eligible b ased on patient's age to complete this topic Care Teams Radio Technician Relationship Specialty Start Date End Date Verenice Bui PA-C [address] [place] [id number] PCP - General 10/14/22
--- OUTSIDE RECORDS SUMMARY | 2025-07-11 12:50 | XMS_ITS | Encounter Summary ---
Author Organization [facility] Address [address] [place] [address] Phone Care Team Providers Care Naphtha Washing System Operator Name Role Phone Verenice Bui Primary Care Provider + Rio Alcala MD Unavailable [phone] Ismael Ness MD PhD Unavailable Kal Gill MD Unavailable [phone] Encounter Details Date Type Department Care Team (Late st Contact Info) Description 07/10/2025 Telephone [facility] ([facility]) - [facility] Medicine Urology [address] [facility] [address] [place] [address] [place] [address] Michelle Koo RN Social History Tobacco Use Types Packs/Day Years Used Date Smoking Tobacco: Every Day Cigarettes 0.4 47.7 Started: 1978 Smokeless Tobacco: Never Comments:Last smoked today a t [address] [facility] Utilities Answer Date Recorded In the past 12 months has [employer] electric, gas, oil, or water [employer] threatened to shut off services in your home? No 12/13/2024 Social Connection and Isolation Panel Answer Date Recorded In a typical week, how many times do you talk on the phone with family, friends, or neighbors? Three times a week 12/13/2024 How often do you get togethe r with friends or relatives? Three times a week 12/13/2024 How often do you attend [facility] or taoism services? Never 12/13/2024 Do you belong to any clubs o r organizations such as alevism groups, unions, fraternal or athletic groups, or school groups? No 12/13/2024 How often do you attend meet ings of the clubs or organizations you belong to? Never 12/13/2024 Are you , , di vorced, , never , or living with a partner? Never 12/13/2024 AUDIT-C Answer Date Recorded Q1: How often do you have a drink containing alcohol? 4 or more times a week 12/13/2024 Q2: How many drinks containi ng alcohol do you have on a typical day when you are drinking? 3 or 4 Q3: How often do you have si x or more drinks on one occasion? Less than monthly 12/13/2024 Overall Financial Resource Strain (CARDIA) Answe r Date Recorded How hard is it for you to pa y for the very basics like food, housing, medical care, and heating? Not hard at all 12/13/2024 Hunger Vital Sign Answer Date Recorded Within the past 12 months, y ou worried that your food would run out before you got the money to buy more. Never true 12/14/19 25 Within the past 12 months, t he food you bought just didn't last and you didn't have money to get more. Never true 12/13/2024 PRAPARE - Transportation Answer Date Re corded In the past 12 months, has l ack of transportation kept you from medical appointments or from getting medications? No 02/2025 In the past 12 months, has l ack of transportation kept you from meetings, work, or from getting things needed for daily living? No 12/13/2024 Housing Stability Vital Sign Answer Tre e Recorded In the last 12 months, was t here a time when you were not able to pay the mortgage or rent on time? No 12/13/2024 In the past 12 months, how m any times have you moved where you were living? 0 12/13/2024 At any time in the past 12 m [facility], were you homeless or living in a alf (including now)? No 12/13/2024 Personal Safety Answer Date Recorded Have you ever been in or are you currently in a harmful physical or emotional relationship or is someone making you feel afraid or unsafe? Denies 12/13/2024 Sex and Gender Information Value Date Recorded Sex Assigned at Not on file Legal Sex Male 8:23 PM [employer] Gender Identity Not on file Sexual Orientation Not on file documented as of this encounter Miscellaneous Notes * Telephone Encounter - Michelle Koo RN - 07/10/2025 11:09 AM CDT Reason for Call: Upcoming Urodynamics Test Patient Name: Les Baker Ordering Physician: Cuco Attempted to contact patient regarding upcoming Urodynamics appointment on 07/24/25. Could not reach patient. Patient has urine culture orders at an external lab that have not been completed yet. Explained that a positive urine culture prior to or positive UA dip the day of the appointment may result in the test being rescheduled. LVM with call center number for patient to call to confirm, cancel, or reschedule Urodynamics appointment. Michelle Koo RN documented in this encounter Plan of Treatment Not on file documented as of this encounter Visit Diagnoses Not on filedocumented in this encounter Care Teams Naphtha Washing System Operator Relationship Specialty Start Date End Date Verenice Bui PA PCP - General Physician Computer Repair Technician 08/15/21 Rio Alcala MD [address] [address] Consulting Physician Pulmonary Disease 03/11/22 Ismael Ness MD PhD [address] [place] [id number] Consulting Physician Medical Oncology 03/11/22 Kal Gill MD [address] [facility] [address] [place] [address] Radiation Oncologist Radiation Oncology 05/25/24 documented as of this encounter
--- OUTSIDE RECORDS SUMMARY | 2025-07-11 12:50 | XMS_ITS | Data Portability ---
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 Lab CMP, serum or plasma 2024 025 [place] [facility], [address], [place], [address], 5 08:25:20 CBC w/ auto diff 2024 025 [place] [facility], [address], [place], [address], 5 08:25:21 alpha-1-a ntitrypsi n (aat), QN, serum 2023 024 [email or web address] [facility], [address], [place], [address], 4 09:03:54 SS-A extractab le nuclear Ab, QN, serum 2023 024 [email or web address] [facility], [address], [place], [address], 4 09:03:54 inflammat ion panel, serum or plasma 2023 024 [email or web address] [facility], [address], [place], [address], 4 09:03:54 PRIMITIVO (antinucl ear antibodie s) screen, serum 2023 024 [email or web address] [facility], [address], [place], [address], 4 09:03:54 unlisted lab - OLLIE+anca 2023 024 [email or web address] [facility], [address], [place], [address], 4 09:03:55 CBC w/ auto diff 2023 024 [place] [facility], [address], [place], [address], 4 06:20:48 CMP, serum or plasma 2023 024 [place] [facility], [address], [place], [address], 4 06:20:48 CBC w/ auto diff 2023 024 [facility], [address], [place], [address], 4 07:58:15 CMP, serum or plasma 2023 024 [email or web address] [facility], [address], [place], [address], 4 07:58:15 lipid panel, serum 2023 024 [email or web address] [facility], [address], [place], [address], 4 07:58:15 HbA1c (hemoglob in A1c), blood 2023 [place], [address], [place], [address], 4 08:25:23 PSA, total, serum or plasma 2023 [place], [address], [place], [address], 4 08:25:24 Referral gastroent erologist referral - excela healthi claudia with diverticu litis 10/[address] - Gastroenterol ogy, [address] [facility] , [address], [place], [address], 5 10:21:10 otolaryng ologist referral - sudden hoarsenes s, 1.5 pack smoker 60+years 2023 tiffany Sparrow, [facility] [place], [address], 4 14:49:25 Procedures None recorded. Surgeries None recorded. Imaging US, neck, soft tissue [address] (Imaging), [address] [facility] [address] [place] [address], [id number], 4 12:07:09 Medication Orders lisinopri l 20 mg-hydroc hlorothia zide 12.5 mg tablet 2023 [place] [facility] #[id number], [address], [place], [id number], 4 09:41:15 lisinopri l 20 mg-hydroc hlorothia zide 12.5 mg tablet 2023 [facility] #[id number], [address], [id number], 16:33:11 atorvasta tin 40 mg tablet 2023 [facility] #[id number], [address], [id number], 16:33:16 Patient TargetsNo targets recorded. 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 6 Predi abete s: 5.7 - 6.4 Diabe halley: >6.4 Glyce juan contr ol for adult s with diabe halley: <7.0 Not Available [facility] ([facility]) [address] [facility], [place], [address], 01/05/2024 08:25:23 01/04/20 24 01/05/2024 PROST ATE-S PECIF IC AG prostate specific Ag 3.7 NG/mL 0.0-4. 0 Janell ECLIA metho dolog y. Accor ding to the Ameri can [employer]rolo g[employer] Assoc iatio n, Serum PSA shoul d decre ase and remai n at undet ectab le level s after radic al prost atect dejuan. The AUA defin es bioch emica l recur rence as an initi al PSA value 0.2 ng/mL or great er follo wed by a subse quent confi rmato ry PSA value 0.2 ng/mL or great er. Value s obtai elicia with diffe rent assay metho ds or kits canno t be used inter garzon eay . Resul ts canno t be inter prete d as absol malena evide nce of the prese nce or absen [facility]. Not Available [facility] ([facility]) [address] [place], [address], 01/05/2024 08:25:24 05/02/20 24 05/03/2024 COMP. METAB OLIC PANEL (14) glucose 102 mg/dL 70-99 above high normal Not Available [facility] ([facility]) [address] [place], [address], 05/03/2024 06:20:48 05/02/20 24 05/03/2024 COMP. METAB OLIC PANEL (14) BUN 13 mg/dL 6-24 Not Available [facility] ([facility]) [address] [place], [address], 05/03/2024 06:20:48 05/02/20 24 05/03/2024 COMP. METAB OLIC PANEL (14) creatinine 0.80 mg/dL 0.76-1 .27 Not Available [facility] ([facility]) [address] [place], [address], 05/03/2024 06:20:48 05/02/20 24 05/03/2024 COMP. METAB OLIC PANEL (14) eGFR 102 mL/mi n/1.7 3 >59 Not Available [facility] ([facility]) [address] [facility], [place], [address], 05/03/2024 06:20:48 05/02/20 24 05/03/2024 COMP. METAB OLIC PANEL (14) BUN/creatini ne ratio 16 9-20 Not Available [facility] ([facility]) [address] [facility], [place], [address], 05/03/2024 06:20:48 05/02/20 24 05/03/2024 COMP. METAB OLIC PANEL (14) sodium 132 mmol/ L 134-14 4 below low normal Not Available [facility] ([facility]) [address] [facility], [place], [address], 05/03/2024 06:20:48 05/02/20 24 05/03/2024 COMP. METAB OLIC PANEL (14) potassium 3.8 mmol/ L 3.5-5. 2 Not Available [facility] ([facility]) [address] [facility], [place], [address], 05/03/2024 06:20:48 05/02/20 24 05/03/2024 COMP. METAB OLIC PANEL (14) chloride 91 mmol/ L 96-106 below low normal Not Available [facility] ([facility]) [address] [facility], [place], [address], 05/03/2024 06:20:48 05/02/20 24 05/03/2024 COMP. METAB OLIC PANEL (14) carbon dioxide, total 29 mmol/ L 20-29 Not Available [facility] ([facility]) [address] [facility], [place], [address], 05/03/2024 06:20:48 05/02/20 24 05/03/2024 COMP. METAB OLIC PANEL (14) calcium 9.3 mg/dL 8.7-10 .2 Not Available [facility] ([facility]) [address] [place], [address], 05/03/2024 06:20:48 05/02/20 24 05/03/2024 COMP. METAB OLIC PANEL (14) protein, total 6.9 g/dL 6.0-8. 5 Not Available [facility] ([facility]) [address] [place], [address], 05/03/2024 06:20:48 05/02/20 24 05/03/2024 COMP. METAB OLIC PANEL (14) albumin 4.1 g/dL 3.8-4. 9 Not Available [facility] ([facility]) [address] [place], [address], 05/03/2024 06:20:48 05/02/20 24 05/03/2024 COMP. METAB OLIC PANEL (14) globulin, total 2.8 g/dL 1.5-4. 5 Not Available [facility] ([facility]) [address] [place], [address], 05/03/2024 06:20:48 05/02/20 24 05/03/2024 COMP. METAB OLIC PANEL (14) bilirubin, total 0.3 mg/dL 0.0-1. 2 Not Available [facility] ([facility]) [address] [place], [address], 05/03/2024 06:20:48 05/02/20 24 05/03/2024 COMP. METAB OLIC PANEL (14) alkaline phosphatase 93 IU/L 44-121 Not Available [facility]) [address] [place], [address], 05/03/2024 06:20:48 05/02/20 24 05/03/2024 COMP. METAB OLIC PANEL (14) AST (SGOT) 21 IU/L 0-40 Not Available [facility] ([facility]) [address] [facility], [place], [address], 05/03/2024 06:20:48 05/02/20 24 05/03/2024 COMP. METAB OLIC PANEL (14) ALT (SGPT) 14 IU/L 0-44 Not Available [facility] ([facility]) [address] [facility], [place], [address], 05/03/2024 06:20:48 05/02/20 24 05/03/2024 CBC WITH DIFFE RENTI AL/PL ATELE T WBC 8.2 x10e3 /uL 3.4-10 .8 Not Available [facility] ([facility]) [address] [facility], [place], [address], 05/03/2024 06:20:48 05/02/20 24 05/03/2024 CBC WITH DIFFE RENTI AL/PL ATELE T RBC 3.89 x10e6 /uL 4.14-5 .80 below low normal Not Available [facility] ([facility]) [address] [place], [address], 05/03/2024 06:20:48 05/02/20 24 05/03/2024 CBC WITH DIFFE RENTI AL/PL ATELE T hemoglobin 12.7 g/dL 13.0-1 7.7 below low normal Not Available [facility] ([facility]) [address] [place], [address], 05/03/2024 06:20:48 05/02/20 24 05/03/2024 CBC WITH DIFFE RENTI AL/PL ATELE T hematocrit 37.2 % 37.5-5 1.0 below low normal Not Available [facility] ([facility]) [address] [place], [address], 05/03/2024 06:20:48 05/02/20 24 05/03/2024 CBC WITH DIFFE RENTI AL/PL ATELE T MCV 96 fL 79-97 Not Available [facility] ([facility]) [address] [facility], [place], [address], 05/03/2024 06:20:48 05/02/20 24 05/03/2024 CBC WITH DIFFE RENTI AL/PL ATELE T MCH 32.6 pg 26.6-3 3.0 Not Available [facility] ([facility]) [address] [facility], [place], [address], 05/03/2024 06:20:48 05/02/20 24 05/03/2024 CBC WITH DIFFE RENTI AL/PL ATELE T MCHC 34.1 g/dL 31.5-3 5.7 Not Available [facility] ([facility]) [address] [facility], [place], [address], 05/03/2024 06:20:48 05/02/20 24 05/03/2024 CBC WITH DIFFE RENTI AL/PL ATELE T RDW 12.6 % 11.6-1 5.4 Not Available [facility] ([facility]) [address] [place], [address], 05/03/2024 06:20:48 05/02/20 24 05/03/2024 CBC WITH DIFFE RENTI AL/PL ATELE T platelets 304 x10e3 /uL 150-45 0 Not Available [facility] ([facility]) [address] [facility], [place], [address], 05/03/2024 06:20:48 05/02/20 24 05/03/2024 CBC WITH DIFFE RENTI AL/PL ATELE T neutrophils 72 % notest ab. Not Available [facility] ([facility]) [address] [place], [address], 05/03/2024 06:20:48 05/02/20 24 05/03/2024 CBC WITH DIFFE RENTI AL/PL ATELE T lymphs 17 % notest ab. Not Available [facility] ([facility]) [address] [facility], [place], [address], 05/03/2024 06:20:48 05/02/20 24 05/03/2024 CBC WITH DIFFE RENTI AL/PL ATELE T monocytes 8 % notest ab. Not Available [facility] ([facility]) [address] [facility], [place], [address], 05/03/2024 06:20:48 05/02/20 24 05/03/2024 CBC WITH DIFFE RENTI AL/PL ATELE T eos 2 % notest ab. Not Available [facility] ([facility]) [address] [facility], [place], [address], 05/03/2024 06:20:48 05/02/20 24 05/03/2024 CBC WITH DIFFE RENTI AL/PL ATELE T basos 1 % notest ab. Not Available [facility] ([facility]) [address] [facility], [place], [address], 05/03/2024 06:20:48 05/02/20 24 05/03/2024 CBC WITH DIFFE RENTI AL/PL ATELE T neutrophils (absolute) 5.9 x10e3 /uL 1.4-7. 0 Not Available [facility] ([facility]) [address] [facility], [place], [address], 05/03/2024 06:20:48 05/02/20 24 05/03/2024 CBC WITH DIFFE RENTI AL/PL ATELE T lymphs (absolute) 1.4 x10e3 /uL 0.7-3. 1 Not Available [facility] ([facility]) [address] [facility], [place], [address], 05/03/2024 06:20:48 05/02/20 24 05/03/2024 CBC WITH DIFFE RENTI AL/PL ATELE T monocytes(ab solute) 0.7 x10e3 /uL 0.1-0. 9 Not Available [facility] ([facility]) [address] [facility], [place], [address], 05/03/2024 06:20:48 05/02/20 24 05/03/2024 CBC WITH DIFFE RENTI AL/PL ATELE T eos (absolute) 0.2 x10e3 /uL 0.0-0. 4 Not Available [facility] ([facility]) [address] [facility], [place], [address], 05/03/2024 06:20:48 05/02/20 24 05/03/2024 CBC WITH DIFFE RENTI AL/PL ATELE T baso (absolute) 0.1 x10e3 /uL 0.0-0. 2 Not Available [facility] ([facility]) [address] [facility], [place], [address], 05/03/2024 06:20:48 05/02/20 24 05/03/2024 CBC WITH DIFFE RENTI AL/PL ATELE T immature granulocytes 0 % notest ab. Not Available [facility] ([facility]) [address] [facility], [place], [address], 05/03/2024 06:20:48 05/02/20 24 05/03/2024 CBC WITH DIFFE RENTI AL/PL ATELE T immature grans (abs) 0.0 x10e3 /uL 0.0-0. 1 Not Available [facility] ([facility]) [address] [facility], [place], [address], 05/03/2024 06:20:48 06/08/2006/13/2024 SPECI MEN STATU S REPOR T specimen status report TNP Test not perfo rmed. No laven la top tube submi tted. TEST: [id number] Alpha -1-An titry psin Defic iency Not Available [facility] ([facility]) [address] [facility], [place], [address], 08/11/2024 12:12:38 08/29/20 24 06/09/2024 PRIMITIVO W/REF SANAM IF POSIT CHRISTOPHER PRIMITIVO direct POSITI VE negati ve abnormal Not Available [facility] ([facility]) [address] [facility], [place], [address], 08/11/2024 12:12:38 06/08/20 24 06/09/2024 TREY+C 3+C4+ DNA/D S+ANT ICH+C EN... anti-DNA (ds) Ab qn 11 IU/mL 0-9 above high normal Negat christopher <5 Equiv ocal 5 - 9 Posit christopher >9 Not Available [facility] ([facility]) [address] [facility], [place], [address], 08/11/2024 12:12:40 06/08/20 24 06/09/2024 TREY+C 3+C4+ DNA/D S+ANT ICH+C EN... car checker antibodies 0.2 ai 0.0-0. 9 Not Available [facility] ([facility]) [address] [facility], [place], [address], 08/11/2024 12:12:40 06/08/20 24 06/09/2024 TREY+C 3+C4+ DNA/D S+ANT ICH+C EN... suresh antibodies <0.2 ai 0.0-0. 9 Not Available [facility] ([facility]) [address] [facility], [place], [address], 08/11/2024 12:12:40 06/08/20 24 06/09/2024 TREY+C 3+C4+ DNA/D S+ANT ICH+C EN... sjogren's anti-ss-B <0.2 Not Available [facility] ([facility]) [address] [place], [address], 08/11/2024 12:12:40 06/08/20 24 06/09/2024 TREY+C 3+C4+ DNA/D S+ANT ICH+C EN... antichromati n antibodies <0.2 Not Available [facility]) [address] [facility], [place], [address], 08/11/2024 12:12:40 06/08/20 24 06/09/2024 TREY+C 3+C4+ DNA/D S+ANT ICH+C EN... anti-flakito-1 <0.2 Not Available [facility] ([facility]) [address] [facility], [place], [address], 08/11/2024 12:12:40 06/08/20 24 06/14/2024 TREY+C 3+C4+ DNA/D S+ANT ICH+C EN... complement C3, serum 139 mg/dL 82-167 Not Available [facility] ([facility]) [address] [facility], [place], [address], 08/11/2024 12:12:40 06/08/20 24 06/14/2024 TREY+C 3+C4+ DNA/D S+ANT ICH+C EN... complement C4, serum 39 mg/dL 12-38 above high normal Not Available [facility] ([facility]) [address] [facility], [place], [address], 08/11/2024 12:12:40 06/08/20 24 06/09/2024 SCL 70+AN TI CENTR OMERE B ABS antisclerode rma-70 antibodies <0.2 Not Available [facility] ([facility]) [address] [facility], [place], [address], 08/11/2024 12:12:40 06/08/20 24 06/09/2024 SCL 70+AN TI CENTR OMERE B ABS anti-centrom ere B antibodies <0.2 Not Available [facility] ([facility]) [address] [facility], [place], [address], 08/11/2024 12:12:40 06/08/20 24 06/09/2024 OLLIE+A NCA cytoplasmic (C-anca) <1:20 titer neg:<1 :20 Not Available [facility] ([facility]) [address] [facility], [place], [address], 08/11/2024 12:12:41 06/08/20 24 06/09/2024 OLLIE+A NCA perinuclear (P-anca) <1:20 titer neg:<1 :20 The prese nce of posit christopher fluor escen ce exhib iting P-ANC A or C-ANC A patte rns alone is not speci fic for the diagn osis of Wegen er's Granu lomat osis (WG) or micro scopi c polya ngiit is. Decis ions about treat ment shoul d not be based solel y on ANCA IFA resul ts. The Inter natio nal [employer]CA [employer] Conse nsus recom mends follo w up testi ng of posit christopher sera with both OK-3 and MPO-A NCA enzym e immun oassa ys. As many as 5% serum sampl es are posit christopher only by EIA. Ref. AM J Clin Patho l 1999; 111:5 07-51 3. Not Available [facility] ([facility]) [address] [facility], [place], [address], 08/11/2024 12:12:41 06/08/20 24 06/09/2024 OLLIE+A NCA atypical panca <1:20 titer neg:<1 :20 The atypi memo pANCA patte rn has been obser michael in a signi fican t perce ntage of patie nts with ulcer ative colit is, prima ry scler osing chola ngiti s and autoi mmune hepat itis. Not Available [facility] ([facility]) [address] [facility], [place], [address], 08/11/2024 12:12:41 06/08/20 24 06/09/2024 OLLIE+A NCA OLLIE, serum <15 U/L 14-82 Not Available [facility] ([facility]) [address] [facility], [place], [address], 08/11/2024 12:12:41 06/08/20 24 08/11/2024 ALPHA -1-AN TITRY PSIN DEFIC IENCY aat, DNA analysis - Test not perfo rmed. No laven la top tube submi tted. Not Available [facility] ([facility]) [address] [facility], [place], [address], 08/11/2024 12:12:42 06/08/20 24 06/09/2024 SJOGR EN'S ANTI- SS-A sjogren's anti-ss-A <0.2 Not Available [facility] ([facility]) [address] [facility] [place], [address], 08/11/2024 12:12:43 11/02/19 25 11/03/2024 COMP. METAB OLIC PANEL (14) glucose 171 mg/dL 70-99 above high normal Not Available [facility] ([facility]) [address] [facility], [place], [address], 11/03/2024 08:25:19 11/02/19 25 11/03/2024 COMP. METAB OLIC PANEL (14) BUN 6 mg/dL 6-24 Not Available [facility] ([facility]) [address] [facility] [place], [address], 11/03/2024 08:25:19 11/02/19 25 11/03/2024 COMP. METAB OLIC PANEL (14) creatinine 0.84 mg/dL 0.76-1 .27 Not Available [facility] ([facility]) [address] [facility] [place], [address], 11/03/2024 08:25:19 11/02/19 25 11/03/2024 COMP. METAB OLIC PANEL (14) eGFR 100 mL/mi n/1.7 3 >59 Not Available [facility] ([facility]) [address] [place], [address], 11/03/2024 08:25:19 11/02/19 25 11/03/2024 COMP. METAB OLIC PANEL (14) BUN/creatini ne ratio 7 9-20 below low normal Not Available [facility] ([facility]) [address] [facility], [place], [address], 11/03/2024 08:25:19 11/02/19 25 11/03/2024 COMP. METAB OLIC PANEL (14) sodium 139 mmol/ L 134-14 4 Not Available [facility] ([facility]) [address] [facility] [place], [address], 11/03/2024 08:25:19 11/02/19 25 11/03/2024 COMP. METAB OLIC PANEL (14) potassium 4.0 mmol/ L 3.5-5. 2 Not Available [facility] ([facility]) [address] [place], [address], 11/03/2024 08:25:19 11/02/19 25 11/03/2024 COMP. METAB OLIC PANEL (14) chloride 96 mmol/ L 96-106 Not Available [facility] ([facility]) [address] [place], [address], 11/03/2024 08:25:19 11/02/19 25 11/03/2024 COMP. METAB OLIC PANEL (14) carbon dioxide, total 25 mmol/ L 20-29 Not Available [facility] ([facility]) [address] [place], [address], 11/03/2024 08:25:19 11/02/19 25 11/03/2024 COMP. METAB OLIC PANEL (14) calcium 9.2 mg/dL 8.7-10 .2 Not Available [facility] ([facility]) [address] [place], [address], 11/03/2024 08:25:19 11/02/19 25 11/03/2024 COMP. METAB OLIC PANEL (14) protein, total 6.3 g/dL 6.0-8. 5 Not Available [facility] ([facility]) [address] [place], [address], 11/03/2024 08:25:19 11/02/19 25 11/03/2024 COMP. METAB OLIC PANEL (14) albumin 3.6 g/dL 3.8-4. 9 below low normal Not Available [facility] ([facility]) [address] [place], [address], 11/03/2024 08:25:19 11/02/19 25 11/03/2024 COMP. METAB OLIC PANEL (14) globulin, total 2.7 g/dL 1.5-4. 5 Not Available [facility] ([facility]) [address] [place], [address], 11/03/2024 08:25:19 11/02/19 25 11/03/2024 COMP. METAB OLIC PANEL (14) bilirubin, total <0.2 mg/dL 0.0-1. 2 Not Available [facility] ([facility]) [address] [place], [address], 11/03/2024 08:25:19 11/02/19 25 11/03/2024 COMP. METAB OLIC PANEL (14) alkaline phosphatase 91 IU/L 44-121 Not Available [facility] ([facility]) [address] [place], [address], 11/03/2024 08:25:19 11/02/19 25 11/03/2024 COMP. METAB OLIC PANEL (14) AST (SGOT) 90 IU/L 0-40 above high normal Not Available [facility] ([facility]) [address] [place], [address], 11/03/2024 08:25:19 11/02/19 25 11/03/2024 COMP. METAB OLIC PANEL (14) ALT (SGPT) 59 IU/L 0-44 above high normal Not Available [facility] ([facility]) [address] [facility], [place], [address], 11/03/2024 08:25:19 11/02/19 25 11/03/2024 CBC WITH DIFFE RENTI AL/PL ATELE T WBC - x10e3 /uL Test not perfo rmed. No laven la top tube submi tted. Not Available [facility] ([facility]) [address] [facility], [place], [address], 11/03/2024 08:25:21 11/02/19 25 11/03/2024 CBC WITH DIFFE RENTI AL/PL ATELE T RBC - Test not perfo rmed Not Available [facility] ([facility]) [address] [facility], [place], [address], 11/03/2024 08:25:21 11/02/19 25 11/03/2024 CBC WITH DIFFE RENTI AL/PL ATELE T hemoglobin - Test not perfo rmed Not Available [facility] ([facility]) [address] [place], [address], 11/03/2024 08:25:21 11/02/19 25 11/03/2024 CBC WITH DIFFE RENTI AL/PL ATELE T hematocrit - Test not perfo rmed Not Available [facility] ([facility]) [address] [place], [address], 11/03/2024 08:25:21 11/02/19 25 11/03/2024 CBC WITH DIFFE RENTI AL/PL ATELE T platelets - Test not perfo rmed Not Available [facility] ([facility]) [address] [place], [address], 11/03/2024 08:25:21 11/02/19 25 11/03/2024 CBC WITH DIFFE RENTI AL/PL ATELE T neutrophils - Test not perfo rmed Not Available [facility] ([facility]) [address] [facility], [place], [address], 11/03/2024 08:25:21 11/02/19 25 11/03/2024 CBC WITH DIFFE RENTI AL/PL ATELE T lymphs - Test not perfo rmed Not Available [facility] ([facility]) [address] [facility], [place], [address], 11/03/2024 08:25:21 11/02/19 25 11/03/2024 CBC WITH DIFFE RENTI AL/PL ATELE T monocytes - Test not perfo rmed Not Available [facility] ([facility]) [address] [facility], [place], [address], 11/03/2024 08:25:21 11/02/19 25 11/03/2024 CBC WITH DIFFE RENTI AL/PL ATELE T eos - Test not perfo rmed Not Available [facility] ([facility]) [address] [facility], [place], [address], 11/03/2024 08:25:21 11/02/19 25 11/03/2024 CBC WITH DIFFE RENTI AL/PL ATELE T lymphs (absolute) - Test not perfo rmed Not Available [facility] ([facility]) [address] [facility], [place], [address], 11/03/2024 08:25:21 11/02/19 25 11/03/2024 CBC WITH DIFFE RENTI AL/PL ATELE T eos (absolute) - Test not perfo rmed Not Available [facility] ([facility]) [address] [place], [address], 11/03/2024 08:25:21 11/02/19 25 11/03/2024 CBC WITH DIFFE RENTI AL/PL ATELE T baso (absolute) - Test not perfo rmed Not Available [facility] ([facility]) [address] [place], [address], 11/03/2024 08:25:21 06/08/20 imagi ng/di agnos tic resul t No observ ation record ed. [email or web address] Not Available 2023 09:16:51 10/24/19 25 10/24/2024 CT, abdom en + pelvi s, w/ contr ast No observ ation record ed. [address], [place], [address], 10/27/2024 08:35:43 04/28/20 25 04/28/2025 XR, chest , 2 view No observ ation record ed. [address], [place], [address], 04/30/2025 11:18:45 Result Notes None recorded. Problems Name Problem SNOMED Code Status Onset Date Resolution Date Notes Provider Name and Address Organization Details Recorded Time Chronic obstructiv e pulmonary disease 62077218 Active 2019 Tianna Riggins RN null, [place] - [facility] 0 14:29:37 Essential hypertensi on 72011877 Active 2019 Hilary Acuna LPN [place], [place] [facility] 2 12:21:49 Urge incontinen ce of urine 73270024 Active 2021 Hilary Acuna LPN [place] [facility] 2 12:21:49 Hyperlipid emia 63393272 Active 2021 Hilary Acuna LPN [place] [facility] 2 12:21:49 Depressive disorder 50339749 Active 2021 TIARA CARRION Attn: Accounting ,[address] [facility], [place], [address] , [place] - [facility] 2 15:07:44 Nodule of lung 675541331 Active 2021 Hilary Acuna LPN [place], [place] [facility] 2 12:21:49 Plantar fasciitis of left foot 6843748026117 9101 Active 2021 TIARA CARRION Attn: Accounting ,[address] [facility], [place], [address] , [place] - [facility] 2 10:59:14 Low back pain 420652686 Active 2021 TIARA CARRION Attn: Accounting ,[address] [facility], [place], [address] , [place] [facility] 2 12:08:21 Thoracic back pain 771904388 Active 2021 TIARA CARRION Attn: Accounting ,[address] [facility], [place], [address] , [place] [facility] 2 12:08:22 Removal of suture Active 2022 TIARA CARRION Attn: Accounting ,[address] [facility], [place], [address] , [place] [facility] 3 10:13:28 Hoarse 05074967 Active 2023 TIARA CARRION Attn: Accounting ,[address] [facility], [place], [address] , [place] [facility] 4 16:32:20 Smoker 05524313 Active 2023 TIARA CARRION Attn: Accounting ,[address] [facility], [place], [address] , [place] [facility] 4 16:34:38 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 TIARA CARRION Attn: Accounting ,[address] [facility], [place], [address] , [place] [facility] 4 09:42:10 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 TIARA CARRION Attn: Accounting ,[address] [facility], [place], [address] , [place] [facility] 4 09:42:10 Peripheral vascular disease 761854181 Active 2024 dx 2020 TIARA CARRION Attn: Accounting ,[address] [facility], [place], [address] , [facility] - [facility] 5 15:59:46 Problem Notes Documentation Provider Name and Address Organization Details Recorded Time Urologist Consult Note : This document (1 of 1) was received from [email or web address] on 06/07/2024 through Direct Message along with the following message body content: Patient Name: STEWART BAKER. Patient : 1965. Patient . 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 Patient : 1965. Patient . Keira nelson, [facility] 12/20/2024 10:19:42 Procedures Surgical History Date Name Laterality Status Provider Name and Address Organization Details Recorded Time 5 biopsy of lung completed Sudha Dutta MA [place] - [facility] 12/11/2024 14:15:19 3 Suture/Stapl e removal completed TIARA CARRION Attn: Accounting,[address] [facility], [place], [address], [facility] - [facility] 06/03/2023 10:19:32 biopsy of liver completed TIARA CARRION Attn: Accounting,[address] [facility], [place], [address], [facility] - [facility] 09/03/2020 14:47:47 Imaging Results None recorded. Procedure Notes None recorded. Medical Equipment None Reported. Allergies No known drug allergies Medications Name Sig Start Date Stop Date Status Note LastModified by Organization Details LastModified Time amoxicillin 500 mg capsule 06/08 completed Not Available Not Available Not Available atorvastati n 40 mg tablet TAKE 1 TABLET BY MOUTH EVERY DAY AT BEDTIME 2024 active Not Available Not Available Not Avai lable trazodone 50 mg tablet TAKE 2 TABLETS BY MOUTH EVERY DAY 2024 active Not Available Not Available Not Avai lable sildenafil 50 mg tablet Take 1 tablet as needed by oral route as directed. 2021 active Not Available Not Available Not Avai lable lisinopril 20 mg-hydrochl orothiazide 12.5 mg tablet TAKE 1 TABLET BY MOUTH EVERY DAY 2024 active Not Available Not Available Not Avai lable oxybutynin chloride ER 10 mg tablet,exte nded release 24 hr active Not Available Not Available Not Available azithromyci n 250 mg tablet 05/02 completed Not Available Not Available Not Available ibuprofen 800 mg tablet 01/03 completed Not Available Not Available Not Available hydrocodone 5 mg-acetamin ophen 325 mg tablet 07/23 completed Not Available Not Available Not Available lisinopril 20 mg tablet Take 1 tablet every day by oral route for 30 days. 01/31 completed Not Available Not Available Not Available prednisone 20 mg tablet 05/02 completed Not Available Not Available Not Available dexamethaso ne 6 mg tablet 05/02 completed Not Available Not Available Not Available sertraline 100 mg tablet TAKE 1 AND 1/2 TABLETS BY MOUTH EVERY DAY 2024 active Not Available Not Available Not Avai lable acetaminoph en 300 mg-codeine 30 mg tablet 06/08 completed Not Available Not Available Not Available sulfamethox azole 800 mg-trimetho prim 160 mg tablet 06/04 completed Not Available Not Available Not Available peg-electro lyte solution 420 gram oral solution 05/21 completed Not Available Not Available Not Available amoxicillin 500 mg tablet 05/21 completed Not Available Not Available Not Available amoxicillin 875 mg tablet 01/05 completed Not Available Not Available Not Available lorazepam 0.5 mg tablet active Not Available Not Available Not Available tamsulosin 0.4 mg capsule TAKE 1 CAPSULE BY MOUTH EVERY DAY active Not Available Not Available No t Available cephalexin 500 mg capsule 06/04 completed Not Available Not Available Not Available montelukast 10 mg tablet active Not Available Not Available Not Available ibuprofen 600 mg tablet Take 1 tablet every 8 hours by oral route for 14 days. active Not Available Not Available No t Available methylpredn isolone 4 mg tablets in a dose pack 01/05 completed Not Available Not Available Not Available albuterol sulfate HFA 90 mcg/actuati on aerosol inhaler INHALE 2 PUFFS BY MOUTH EVERY 4 HOURS NEEDED 2024 active Not Available Not Available Not Avai lable fluticasone propionate 50 mcg/actuati on nasal spray,suspe nsion active Not Available Not Available Not Available sertraline 50 mg tablet Take 1 tablet every day by oral route for 30 days. 08/25 completed Not Available Not Available Not Available finasteride 5 mg tablet TAKE 1 TABLET BY MOUTH EVERY DAY DIRECTED 01/03 completed Not Available Not Available Not Available amoxicillin 875 mg-potassiu m clavulanate 125 mg tablet 05/02 completed Not Available Not Available Not Available amoxicillin 500 mg-potassiu m clavulanate 125 mg tablet Take 1 tablet every 12 hours by oral route for 10 days. 06/26 completed Not Available Not Available Not Available Spiriva with HandiHaler 18 mcg and inhalation capsules active Not Available Not Available Not Available magnesium active Not Available Not Kelsea ilable Not Available varenicline tartrate 0.5 mg (11)-1 mg (42) tablets in a dose pack take as prescribe d 06/08 completed Not Available Not Available Not Available Myrbetriq 50 mg tablet,exte nded release active Not Available Not Available Not Available bupropion HCl 150 mg tablet,12 hr sustained-r elease(smok ing deterrent) 12/18 completed Not Available Not Available Not Available Wixela Inhub 250 mcg-50 mcg/dose powder for inhalation INHALE 1 PUFF BY MOUTH TWICE DAILY 03/03 completed Not Available Not Available Not Available Wixela Inhub 500 mcg-50 mcg/dose powder for inhalation INHALE 1 PUFF BY MOUTH TWICE DAILY 06/08 completed Not Available Not Available Not Available Trelegy Ellipta 200 mcg-62.5 mcg-25 mcg powder for inhalation active Not Available Not Available N ot Available Vitals Date Recorded Body height Body mass index (BMI) Body weight Heart rate Oxygen saturation Oxygen saturation in Arterial blood by Pulse oximetry Systolic And Diastolic Provider Name and Address Organization Details Last Updated DateTime 5 175.26 cm 21.4 kg/m2 08052.8 9 g 111 /min 97 % 97 % 109/81 mm[Hg] Sudha Dutta MA [facility] 5 12:06:23 Date Recorded Body height Body mass index (BMI) Body weight Heart rate Oxygen saturation Oxygen saturation in Arterial blood by Pulse oximetry Systolic And Diastolic Provider Name and Address Organization Details Last Updated DateTime 4 175.26 cm 20.1 kg/m2 01454.5 6 g 111 /min 95 % 95 % 101/62 mm[Hg] Sudha Dutta MA [facility] 4 11:02:36 Date Recorded Systolic And Diastolic Provider Name and Address Organization Details Last Updated DateTime 05/02/2024 130/80 mm[Hg] Nicole CARRION Attn: Accounting,[address] [place], [address], [facility] 05/02/2024 09:44:24 Date Recorded Body height Body mass index (BMI) Body weight Heart rate Oxygen saturation Oxygen saturation in Arterial blood by Pulse oximetry Provider Name and Address Organization Details Last Updated DateTime 4 175.26 cm 20.7 kg/m2 71075.9 3 g 88 /min 97 % 97 % Sudha Dutta MA [facility] 4 09:12:38 Date Recorded Body height Body mass index (BMI) Body weight Heart rate Oxygen saturation Oxygen saturation in Arterial blood by Pulse oximetry Systolic And Diastolic Provider Name and Address Organization Details Last Updated DateTime 5 175.26 cm 21.6 kg/m2 89924.2 9 g 106 /min 95 % 95 % 113/71 mm[Hg] Sudha Dutta MA [facility] 5 15:33:22 Date Recorded Heart rate Provider Name an d Address Organization Details Last Updated DateTime 06/08/2024 94 /min Nicole CARRION Attn: Accounting,[address] [place], [address], [facility] 06/08/2024 09:22:08 Date Recorded Body height Body mass index (BMI) Body weight Oxygen saturation Oxygen saturation in Arterial blood by Pulse oximetry Systolic And Diastolic Provider Name and Address Organization Details Last Updated DateTime 4 175.26 cm 20.5 kg/m2 39792.0 4 g 98 % 98 % 136/86 mm[Hg] Sudha Dutta MA [facility] 4 09:07:41 Social History Question Answer Notes LastModified by Organizat ion Details LastModified Time Tobacco Smoking Status Current Every Day Smoker Tianna Riggins RN [facility] [place] - [facility] 09/03/2020 14:30:00 Do You Have An Advance Directive? Yes Information n ot available 01/23/2022 Are You Blind Or Do You Have Difficulty Seeing? No Information n ot available 03/03/2021 What Is Your Level Of Caffeine Consumption? None Information not available 03/03/2021 In The 14 Days Before Symptom Onset, Have You Had Close Contact With A Laboratory-confirm ed COVID-19 While That Case Was Ill? No Information n ot available 03/03/2021 In The 14 Days Before Symptom Onset, Have You Had Close Contact With A Person Who Is Under Investigation For COVID-19 While That Person Was Ill? No Information not available 03/03/2021 Have You Been To An Area Known To Be High Risk For COVID-19? No Information not available 03/03/2021 Are You Deaf Or Do You Have Serious Difficulty Hearing? No Information not available 03/03/2021 What Type Of Diet Are You Following? REGULAR Information n ot available 03/03/2021 Are There Any Guns Present In Your Home? No Information not available 03/03/2021 Do You Have A Medical Power Of Picture Hanger? Yes Information not available 01/23/2022 What Was The Date Of Your Most Recent Tobacco Screening? 11/02/2024 Information not available 11/02/2024 What Is Your Current Pack Years? 30ormorepack years Information not available 09/15/2022 What Is Your Relationship Status? Single Information not available 03/03/2021 Do You Use Your Seat Belt Or Car Seat Routinely? Yes Information not available 03/03/2021 Do You Have Smoke And Carbon Monoxide Detectors In Your Home? Yes Information not available 03/03/2021 Are You Passively Exposed To Smoke? Yes Information no t available 03/03/2021 How Much Tobacco Do You Smoke? 0.5 PPD 1.5 Information not available 11/02/2024 Has Tobacco Cessation Counseling Been Provided? Yes Information not available 09/15/2022 On What Date Was Tobacco Cessation Counseling Provided? 11/02/2024 Information not available 11/02/2024 How Many Years Have You Smoked Tobacco? 44 Information not available 09/03/2020 Sex: Male Functional Status Question Answer Note LastModified by Organizat ion Details LastModified Time Do you use any illicit or recreational drugs? No Information not available 03/03/2021 Do you or have you ever used any other forms of tobacco or nicotine? No Information not available 09/15/2022 What is your level of alcohol consumption? Occasional Information not available 01/31/2021 Do you or have you ever used smokeless tobacco? Never used smokeless tobacco Information not available 09/03/2020 Are you currently employed? No Information not available 03/03/2021 Are you able to care for yourself independently? Yes Information not available 03/03/2021 Do you or have you ever used e-cigarettes or vape? Never used electronic cigarettes Information not available 09/03/2020 Mental Status Question Answer Note LastModified by Organization D etails LastModified Time Do you feel stressed (tense, restless, nervous, or anxious, or unable to sleep at night)? [id number] Information not available 03/03/2021 Family History Relationship Description Onset Age of this Age Resolved Age Notes LastModified by Organization Details LastModified Time Father No current problems or disability Not available 01/31 14:45:23 Mother No current problems or disability Not available 01/31 14:45:23 Notes:breast cancer mom Medical History Condition Response Coronary Artery Disease N Other N High Blood Pressure Y Atrial Fibrillation N Kidney or Bladder Problems N Thyroid Problems N GI Problems N Depression N COPD Y Blood Clots N Skin Problems N Anemia N Heart Attack ([place]) N Anxiety Disorder N Diabetes N Muscle, Joint, or Bone Problems N Seizures/Epilepsy N Acid Reflux (GERD) N Cancer N Stroke N Asthma N Allergies N High Cholesterol N Hepatitis N Liver Disease N Headaches N Heart Failure N Osteoporosis N Immunizations Vaccine Type Date Status Note Provider Nam e and Address Organization Details Recorded Time Influenza, split virus, quadrivalent, preservative 0 completed Not Available [facility] 07/08/2023 09:50:39 Tdap 3 completed Not Available [facility] 05/16/2025 15:24:18 pneumococcal polysaccharide PPV23 1 completed BINDU [place], [place] - [facility] 01/31/2021 17:48:40 Influenza, split virus, quadrivalent, PF 2 completed Sudha Dutta [place], [place] [facility] 10/13/2021 14:14:05 pneumococcal polysaccharide PPV23 2 completed Sudha D[place] [facility] 10/13/2021 14:14:58 Influenza, split virus, quadrivalent, PF 2 completed TIARA CARRION Attn: Accounting,[address] [place], [address], [place] [facility] 08/13/2022 14:42:38 Tdap 2 completed TIARA CARRION Attn: Accounting[address] [place], [address], [place] [facility] 08/13/2022 14:44:18 Influenza, split virus, trivalent, PF 5 completed Nette Ahuja [place], [place] [facility] 11/02/2024 12:46:39 Past Encounters Encounter ID Performer Location Encounter Start Date Encounter Closed Date Diagnosis/Indication Diagnosis SNOMED-CT Code Diagnosis ICD10 Code Diagnosis IMO Codes Diagnosis Note [id number] TIARA CARRION [facility] [address] [place] [address] 09/03/2020 14:25:47 09/04/2020 15:52:09 Adult health examination 810075857 Z00.00 patient presents to [facility]. - labs- check BP- stop smoking- cut down beers Essential hypertension 26058591 I10 not checking BP at home. Denies cp, sob, edema, vision changes Advised to check BP regularly with a goal of <140/90, if BP consistent ly >140/90, advised to contact clinic Discussed DASH diet Advised weight loss and diet is best way to control BP Advised 30 minutes of exercise minimum daily Advised tobacco, alcohol, caffeine all increase BP Advised goal for BP is <140/90 Screening for malignant neoplasm of colon 227421315 Z12.11 last colonoscop y 2 years ago. He has had polyps found and due for colonoscop y next year. seen every 2 years. Chronic ob structive pulmonary disease 62416959 J44.9 60+ pack smoking history presents to [facility]. Agrees to have LDCT SCAN. He does have COPD and uncontroll ed HTN. ROS positive for cough and wheezing. not controlled on rescue inhaler. f/u one month. Screening for malignant neoplasm of respiratory tract 735391197 Z12.2 60+ pack smoking history presents to [facility]. Agrees to have LDCT SCAN. He does have COPD and uncontroll ed HTN. Alcoholism 0026106 F10.2 0 Patient drinks 10 beers per day. Advised to cut down slowly. [id number] TIARA CARRION [facility] [address] [place] [address] 01/31/2021 10:43:41 02/03/2021 06:54:15 Essential hypertension 67694655 I10 BP 160/100, not wnl. states he takes medication daily.not checking BP at home. Denies cp, sob, edema, vision changes increasing his medication to lisinopril 40mg hcz 25. RRR, no murmurs on exam. Advised to check BP regularly with a goal of <140/90, if BP consistent ly >140/90, advised to contact clinic Discussed DASH diet Advised weight loss and diet is best way to control BP Advised 30 minutes of exercise minimum daily Advised tobacco, alcohol, caffeine all increase BP Advised goal for BP is <140/90 Screening for malignant neoplasm of colon 017612322 Z12.11 last colonoscop y 2 years ago. He has had polyps found and due for colonoscop y next year. seen every 2 years. Chronic ob structive pulmonary disease 48912414 J44.9 60+ pack smoking history presents to establish. needs repeat LDCT SCAN August 2021.. ROS positive for cough and wheezing. using rescue inhaler daily. Onexam dry rales LL lung, decreased air movements, barrel chest. - Increasing his wixela - UTD ON flu vaccines - receiving first pneumovax today, states he has never received one before - stop smoking f/u one month. Alcoholism 9755522 F10.2 0 Patient drinks 10 beers per day. Advised to cut down slowly. He will think about it. Infection of tooth 10649 8007 K04.7 patient is edentulous . Has inflamed area on left lower gums by a broken tooth. given number for dentist. Denies fever, chills. - abx - dental appointmen t - ER if worsens On examina tion - liver edge palpable below right costal margin 766029794 R16.0 PATIENT WITH hx of alcoholism and palpable, non-painfu l liver Smoker 68661801 F17.200 60 + pack smoking hx with no desire to quit at this times. did discuss options and benefits. LDCT scan to be repeated in August. [id number] Veronika Smart MD [facility] [address] [place] [address] 03/03/2021 08:04:36 03/10/2021 17:51:16 Intermittent claudication 21033695 I73.9 Hyperlipidemia 87540547 E78.5 Chronic ob structive pulmonary disease 14190337 J44.9 Intermitte nt palpitations 278859646 R00.2 Tubular ad enomatous polyp of colon 562267120 D12.6 will need follow up colonoscop y with DR. Edna Bravo [id number] TIARA CARRION [facility] [address] [place] [address] 06/04/2021 15:40:32 06/09/2021 10:01:42 Infection of tooth 719530571 K04.7 patient is edentulous . Has inflamed area on left lower gums by a broken tooth. given number for dentist. Denies fever, chills. - abx - dental appointmen t - ER if worsens Chronic ob structive pulmonary disease 78317545 J44.9 60+ pack smoking history presents to establish. needs repeat LDCT SCAN August 2021.. ROS positive for cough and wheezing. using rescue inhaler daily. Onexam dry rales LL lung, decreased air movements, barrel chest. Smoking 1ppd. - Increasing his wixela - UTD ON flu vaccines - receiving first pneumovax today, states he has never received one before - stop smoking f/u one month. [id number] TIARA CARRION [facility] [address] [place] [address] 06/26/2021 08:33:10 07/08/2021 12:55:53 Essential hypertension 04548735 I10 BP at home have been variable- in the am they run high in 140'2/ 90's, midday they are 110's/ 70-80 and evenings they are low at 90'2/60's. He denies any symptoms when low and states dizziness has actually improved. Denies cp, sob, edema, vision changes Medication regiment: lisinopril 40mg hcz 25.has cardiology appoitnmen t next week to review echoAdvise d to check BP regularly with a goal of <140/90, if BP consistent ly >140/90, advised to contact clinic Discussed DASH diet Advised weight loss and diet is best way to control BP Advised 30 minutes of exercise minimum daily Advised tobacco, alcohol, caffeine all increase BP Advised goal for BP is <140/90 Chronic ob structive pulmonary disease 37199206 J44.9 morning are the worst with breathing. 60+ pack smoking history presents to establish. needs repeat LDCT SCAN August 2021.. ROS positive for cough and wheezing. using rescue inhaler daily still. On last exam dry rales LL lung, decreased air movements, barrel chest. - Increasing his wixela - UTD ON flu vaccines - receiving first pneumovax today, states he has never received one before - stop smoking f/u one month. Alcoholism 9368436 F10.2 0 Patient drinks 10 beers per day. Advised to cut down slowly. He will think about it. has cut down to 7-8 beers per night. Smoker [id number] F17.200 60 + pack smoking hx with no desire to quit at this times. did discuss options and benefits. LDCT scan to be repeated in August. patches and gum don't work. Will try chantix and will monitor due to depression . other treatments have not worked and breathing is getting worse. due to alochol history we will try chantix over wellbutrin for now. - take as prescribed - stop smoking in 2 weeks- f/u one month Sleep apnea [id number] G47 .30 snoring, htn, gasping for air Depressive disorder 3548 9007 F32.9 Patient not sleeping well, feeling sad, low mood, tired all the time, mourning of his son from 5 years ago. Will treat to help with sleep and mood. This may help him stop drinking. If he continues drinking will stop medication as he advised to cut down. He understand s risks of drinking on medication . Last blood panel looked wnl . F/U one month - advised counseling -Patient was educated on his prescribed medication s, rationale for medication s, dosing indication s, adverse reactions, black box warning, dosing indication s, SE (e.g., decreased libido, weight gain, gynecomast ia, and galactorrh ea) and the risks and benefits. -Call center with questions/ concerns. Go to ER or call 911 for crisis (e.g., suicidal behaviors, suicidal ideations, intent or plan emerge). Additional ly, patient has suicide hotline #. - f/u one month - call with questions Diastolic dysfunction [id number] 38645 I51.9 grade 1 diastolic dysfunctio n grade I on echo done by cardiologi . Has f/u one week. [id number] TIARA CARRION [facility] [address] [place] [address] 07/23/2021 12:17:05 07/24/2021 20:26:44 Depressive disorder 02292148 F32.9 Patient not sleeping well, but having more good days than bad. crying episodes improved. No SI/HI. Will increase dose to 100mg due to terrible sleep. will check back in one month and decrease dose again if did not change sleep. Last blood panel looked wnl . F/U one month - advised counseling -Patient was educated on his prescribed medication s, rationale for medication s, dosing indication s, adverse reactions, black box warning, dosing indication s, SE (e.g., decreased libido, weight gain, gynecomast ia, and galactorrh ea) and the risks and benefits.- Call center with questions/ concerns. Go to ER or call 911 for crisis (e.g., suicidal behaviors, suicidal ideations, intent or plan emerge). Additional ly, patient has suicide hotline #.- f/u one month- call with questions Chronic ob structive pulmonary disease 67015812 J44.9 down to 1ppd. 60+ pack smoking history. needs repeat LDCT SCAN August 2021.. ROS positive for cough and wheezing. using rescue inhaler daily still. On last exam dry rales LL lung, decreased air movements, barrel chest. Using neck muscles to breathe. - Increasing his wixela - UTD ON flu vaccines - receiving first pneumovax today, states he has never received one before - stop smoking f/u one month. Essential hypertension 62715227 I10 BP elevated to 156/96. Saw cardiologi 07/04 and has him only taking one lisinopril 20mg- hcz 12.5 mg daily despite variable BP. Denies cp, new sob, edema, vision changes. will bring patietn back one month for BP check. he will check at home as well. Medication regiment: cardiologi changed lisinopril 40mg hcz 25 to half.has cardiology appoitnmen t next week to review echoAdvise d to check BP regularly with a goal of <140/90, if BP consistent ly >140/90, advised to contact clinic Discussed DASH diet Advised weight loss and diet is best way to control BP Advised 30 minutes of exercise minimum daily Advised tobacco, alcohol, caffeine all increase BP Advised goal for BP is <140/90 Smoker [id number] F17.200 60 + pack smoking hx with no desire to quit at this times. did discuss options and benefits. LDCT scan to be repeated in August. patches and gum don't work. Will try chantix and will monitor due to depression . other treatments have not worked and breathing is getting worse. due to alochol history we will try chantix over wellbutrin for now. smoking 1ppd - take as prescribed - stop smoking in 2 weeks- f/u one month [id number] TIARA CARRION [facility] [address] [place] [address] 08/25/2021 08:07:41 08/26/2021 15:38:42 Depressive disorder 41867571 F32.9 Patient not sleeping well, but having more good days than bad. crying episodes improved to 1-2 per MONTH. No SI/HI. Will leave dose at 100mg and add trazadone due to terrible sleep. will check back in one month. Last blood panel looked wnl . F/U one month - advised counseling -Patient was educated on his prescribed medication s, rationale for medication s, dosing indication s, adverse reactions, black box warning, dosing indication s, SE (e.g., decreased libido, weight gain, gynecomast ia, and galactorrh ea) and the risks and benefits.- Call center with questions/ concerns. Go to ER or call 911 for crisis (e.g., suicidal behaviors, suicidal ideations, intent or plan emerge). Additional ly, patient has suicide hotline #.- f/u one month- call with questions Chronic ob structive pulmonary disease 57344179 J44.9 down to 1ppd. 60+ pack smoking history. needs repeat LDCT SCAN August 2021.. ROS positive for cough and wheezing. using rescue inhaler daily still. On last exam dry rales LL lung, decreased air movements, barrel chest. Using neck muscles to breathe.veronika lyons appointmen t September 2rd in [place] at [facility] - Increasing his wixela - UTD ON flu vaccines - receiving first pneumovax today, states he has never received one before - stop smoking f/u one month. Smoker [id number] F17.200 60 + pack smoking hx with no desire to quit at this times. did discuss options and benefits. LDCT scan to be repeated in August. patches and gum don't work. Will try chantix and will monitor due to depression . other treatments have not worked and breathing is getting worse. due to alochol history we will try chantix over wellbutrin for now. smoking 1ppd - take as prescribed - stop smoking in 2 weeks- f/u one month [id number] TIARA CARRION [facility] [address] [place] [address] 09/17/2021 08:03:54 09/18/2021 09:20:57 Depressive disorder 74054332 F32.9 Patient sleeping much better on trazadone. take 1.5-2 before bed time as 1 did not help. depression is much better controlled and only having 1-2 hard days per month. September is the hardest month for him and so far he states he is handling it well. Denies SI/HI. Will continue current doses. - advised counseling -Patient was educated on his prescribed medication s, rationale for medication s, dosing indication s, adverse reactions, black box warning, dosing indication s, SE (e.g., decreased libido, weight gain, gynecomast ia, and galactorrh ea) and the risks and benefits.- Call center with questions/ concerns. Go to ER or call 911 for crisis (e.g., suicidal behaviors, suicidal ideations, intent or plan emerge). Additional ly, patient has suicide hotline #.- f/u 3-6 months- call with questions Chronic ob structive pulmonary disease 47025954 J44.9 Dr Pate at [facility]. seen 09/11/21. he is ordering new he added spiriva on top of his wixela and albuterol. patient states it is helping. started on wellbutrin for smoking. He is ordering PFT, IgE , echo, alpha-1 level, LDCT scan (he is due for it this month) still smoking 1ppd. 60+ pack smoking history. needs repeat LDCT SCAN August 2021.. ROS positive for cough and wheezing. - Increasing his wixela - UTD ON flu vaccines - UTD pneumovax - stop smoking Smoker [id number] F17.200 60 + pack smoking hx with no desire to quit at this times. chantix did not work and pulmonolog ist started him on wellbutrin recently.- take as prescribed - stop smoking in 2 weeks Screening for malignant neoplasm of respiratory tract 083166102 Z12.2 pulmonolog ist sent orders for this. Last CT 09/2020. [id number] TIARA CARRION [facility] [address] [place] [address] 10/13/2021 13:45:12 10/14/2021 09:21:22 Active or passive immunization 230352901 Z23 [id number] TIARA CARRION [facility] [address] [place] [address] 12/18/2021 14:11:36 12/19/2021 13:47:29 Chronic obstructive pulmonary disease 97381065 J44.9 Dr Pate at [facility]. seen 09/11/21. doing well on spiriva , his wixela and albuterol. patient states it is helping. tried wellbutrin for smoking but did not help much. still smoking 1ppd. 60+ pack smoking history. CT scan in nov showed pulm nodules on right lung that look suspicious . due to location cannot biopsy. He is having PET scan. - Increasing his wixela - UTD ON flu vaccines - UTD pneumovax - stop smoking Essential hypertension 23429601 I10 BP elevated to 128/82, WNL. Saw cardiologi st 12/421. no current changed. Denies cp, new sob, edema, vision changes. Medication regiment: lisinopril 20mg hcz 12.6mg qd , complainth as cardiology appoitnmen t next week to review echoAdvise d to check BP regularly with a goal of <140/90, if BP consistent ly >140/90, advised to contact clinic Discussed DASH diet Advised weight loss and diet is best way to control BP Advised 30 minutes of exercise minimum daily Advised tobacco, alcohol, caffeine all increase BP Advised goal for BP is <140/90 Malignant melanoma 26138 4006 C43.9 three worrisome spots on his back for melanoma- irregular border, different colors >1cmhas two spots on his right arm that feel like SK, itchyrefer ral sentf/u one month Nodule of lung 918042302 R91.1 two spots on right lung on CT scan dec 04, 2021. Has pet scan scheduled for January 08. will see pulm after this. again counseled patient on smoking. I am working with pulmonolog y and we are going slow. Depressive disorder 3017 8265 F32.9 Patient sleeping much better on trazadone. take 1.5-2 before bed time as 1 did not help. depression is much better controlled and only having 1-2 hard days per month. seeing a therapist through the [place] and is helping. Denies SI/HI. Will continue current doses. - advised to continue counseling -Patient was educated on his prescribed medication s, rationale for medication s, dosing indication s, adverse reactions, black box warning, dosing indication s, SE (e.g., decreased libido, weight gain, gynecomast ia, and galactorrh ea) and the risks and benefits.- Call center with questions/ concerns. Go to ER or call 911 for crisis (e.g., suicidal behaviors, suicidal ideations, intent or plan emerge). Additional ly, patient has suicide hotline #.- f/u 3-6 months- call with questions Hyperlipidemia 27535086 E78.5 controlled on atorvastat in. follows cardiology . 03/2021 TC 125, tri 44, HDL 73, LDL 41 Urge incon tinence of urine 40778222 N39.41 Patient having urge incontinen ce. not peeing bed at night. has been happening for 2-4 years. makes it to the bathroom but when I have to go I have to go, - start tamsulosin Erectile dysfunction 860 513191 F52.21 I'm having trouble getting my hammer going. trouble maintainin g erection. takes a while to establish erection - control BP- stop smoking- urology Smoker 59594066 F17.200 60 + pack smoking hx with no desire to quit at this times. chantix did not work and pulmonolog ist started him on wellbutrin recently.- take as prescribed - stop smoking in 2 weeks [id number] TIARA CARRION [facility] [address] [place] [address] 01/19/2022 13:56:50 01/23/2022 15:05:09 Urge incontinence of urine 05308653 N39.41 Patient having urge incontinen ce. not peeing bed at night. has been happening for 2-4 years. makes it to the bathroom but when I have to go I have to go,tamsul osin helped some. - continue tamsulosin and f/u with urology Chronic ob structive pulmonary disease 46390396 J44.9 Dr Pate at [facility]. seen recently. has not stopped smoking. worrisome spot will have PET scan. will be seeing surgeon soon to discuss. still smoking 1ppd. 60+ pack smoking history. CT scan in nov showed pulm nodules on right lung that look suspicious . due to location cannot biopsy. He is having PET scan January 15 - Increasing his wixela - UTD ON flu vaccines - UTD pneumovax - stop smoking Essential hypertension 43198626 I10 BP elevated to 128/82, WNL. Saw cardiologi 12/421. no current changed. Denies cp, new sob, edema, vision changes. Medication regiment: lisinopril 20mg hcz 12.6mg qd , complainth as cardiology appoitnmen t next week to review echoAdvise d to check BP regularly with a goal of <140/90, if BP consistent ly >140/90, advised to contact clinic Discussed DASH diet Advised weight loss and diet is best way to control BP Advised 30 minutes of exercise minimum daily Advised tobacco, alcohol, caffeine all increase BP Advised goal for BP is <140/90 Malignant melanoma 26315 4006 C43.9 three worrisome spots on his back for melanoma- irregular border, different colors >1cmhas two spots on his right arm that feel like SK, itchyrefer ral sentf/u one month Nodule of lung 151101562 R91.1 two spots on right lung on CT scan dec 04, 2021. Has pet scan scheduled for January 08. will see pulm after this. again counseled patient on smoking. I am working with pulmonolog y and we are going slow. Depressive disorder 4091 9329 F32.9 Patient sleeping much better on trazadone. take 1.5-2 before bed time as 1 did not help. depression is much better controlled and only having 1-2 hard days per month. seeing a therapist through the [place] and is helping. Denies SI/HI. Will continue current doses. - advised to continue counseling -Patient was educated on his prescribed medication s, rationale for medication s, dosing indication s, adverse reactions, black box warning, dosing indication s, SE (e.g., decreased libido, weight gain, gynecomast ia, and galactorrh ea) and the risks and benefits.- Call center with questions/ concerns. Go to ER or call 911 for crisis (e.g., suicidal behaviors, suicidal ideations, intent or plan emerge). Additional ly, patient has suicide hotline #.- f/u 3-6 months- call with questions [phone] Gurdeep Phillips MD [facility] [place] [address] [place] [address] 01/23/2022 11:57:58 01/23/2022 13:45:50 Erectile dysfunction 120029256 F52.21 Large prostate 391536549 N40.0 [id number] TIARA CARRION [facility] [address] [place] [address] 01/26/2022 16:08:02 01/27/2022 14:39:26 Erectile dysfunction 187104283 F52.21 I'm having trouble getting my hammer going. trouble maintainin g erection. takes a while to establish erection. Dr Poe has filled viagra. - control BP- stop smoking Large prostate 691767742 N40.0 Dx via [facility] By Dr. Poe. has not picked up finasterid e but will start this week. [id number] TIARA CARRION [facility] [address] [place] [address] 02/18/2022 16:00:28 02/19/2022 17:47:28 Plantar fasciitis of left foot 0488827637 3781470 M72.2 - ice- NSAID x 2 weeks with food- f/u in if not improving- continue wearing shoe inserts as they are helping Essential hypertension 87509711 I10 BP elevated to 128/82, WNL. Saw cardiologi st 12/12/21. no current changed. Denies cp, new sob, edema, vision changes. Medication regiment: lisinopril 20mg hcz 12.6mg qd , complainth as cardiology appoitnmen t next week to review echoAdvise d to check BP regularly with a goal of <140/90, if BP consistent ly >140/90, advised to contact clinic Discussed DASH diet Advised weight loss and diet is best way to control BP Advised 30 minutes of exercise minimum daily Advised tobacco, alcohol, caffeine all increase BP Advised goal for BP is <140/90 Hyperlipidemia 00328857 E78.5 controlled on atorvastat in. follows cardiology . 03/2021 TC 125, tri 44, HDL 73, LDL 41 Chronic ob structive pulmonary disease 04617282 J44.9 Dr Pate at [facility]. seen recently. has not stopped smoking. worrisome spot will have PET scan. will be seeing surgeon soon to discuss. still smoking 1ppd. 60+ pack smoking history. CT scan in nov showed pulm nodules on right lung that look suspicious . due to location cannot biopsy. He is having PET scan January 15 - Increasing his wixela - UTD ON flu vaccines - UTD pneumovax - stop smoking Depressive disorder 1248 9009 F32.9 Patient sleeping much better on trazadone. take 1.5-2 before bed time as 1 did not help. depression is much better controlled and only having 1-2 hard days per month. [facility] and [facility]. Denies SI/HI. Will continue current doses. - advised to continue counseling -Patient was educated on his prescribed medication s, rationale for medication s, dosing indication s, adverse reactions, black box warning, dosing indication s, SE (e.g., decreased libido, weight gain, gynecomast ia, and galactorrh ea) and the risks and benefits.- Call center with questions/ concerns. Go to ER or call 911 for crisis (e.g., suicidal behaviors, suicidal ideations, intent or plan emerge). Additional ly, patient has suicide hotline #.- f/u 3-6 months- call with questions [phone] Gurdeep Phillips MD [facility] [address] [place] [address] 02/27/2022 10:59:41 03/06/2022 08:39:18 Erectile dysfunction 619847142 F52.21 sildenafil working very well [id number] TIARA CARRION [facility] [address] [place] [address] 08/11/2022 12:09:19 08/17/2022 09:35:35 Administration of influenza vaccine 76731310 Z23 Depressive disorder 3548 9007 F32.9 two months of increased crying, worry, unable to sleep. Recent eviction from apartment and living with friend. He feels safe. advised leaving trazadone as is and increasing sertraline to 1.5 tablets. Understand s risk of serotonin syndrome. f/u one month. he denies si/hi today. - [facility]-Sandi ent was educated on his prescribed medication s, rationale for medication s, dosing indication s, adverse reactions, black box warning, dosing indication s, SE (e.g., decreased libido, weight gain, gynecomast ia, and galactorrh ea) and the risks and benefits.- Call center with questions/ concerns. Go to ER or call 911 for crisis (e.g., suicidal behaviors, suicidal ideations, intent or plan emerge). Additional ly, patient has suicide hotline #.- f/u 3-6 months- call with questions Serum thyr oid stimulating hormone level outside reference range 717391118 R79.89 abnormal on last check. work up HIV screening 295247216 Z11.4 screen Administra tion of diphtheria, pertussis, and tetanus vaccine 924287423 Z23 administer ed today Hyperlipidemia 32838466 E78.5 controlled on atorvastat in. follows cardiology . 03/2021 TC 125, tri 44, HDL 73, LDL 41 Essential hypertension 22379867 I10 BP 114/68, WNL. Saw cardiologi st 12/12/21. no current changed. Denies cp, new sob, edema, vision changes. Medication regiment: lisinopril 20mg hcz 12.5mg qd , complainth as cardiology appoitnmen t next week to review echoAdvise d to check BP regularly with a goal of <140/90, if BP consistent ly >140/90, advised to contact clinic Discussed DASH diet Advised weight loss and diet is best way to control BP Advised 30 minutes of exercise minimum daily Advised tobacco, alcohol, caffeine all increase BP Advised goal for BP is <140/90 [id number] [facility] [place] [address] [place] [address] 09/09/2022 11:25:43 09/11/2022 12:15:03 Erectile dysfunction 423516042 F52.21 sildenafil working very well Dysfunctional voiding 23 1232843 R39.062 [id number] TIARA CARRION [facility] [address] [place] [address] 09/15/2022 10:53:53 09/16/2022 12:41:32 Low back pain 036889792 M54.50 chronic low back pain.PEX: normal hip and leg strength, normal gait-xray- pt Thoracic back pain 75037 8004 M54.6 - Avoid heavy lifting and over-exert ion.- Avoid bed-rest do some gentle stretching and continue with normal activities .- Use ice to relieve pain, 15 minutes every 2 4 hours.- Use heat to relax muscles, 15 minutes every 2 4 hours.- Sleep on a firm surface and avoid lying on the sofa. Depressive disorder 2713 9008 F32.9 continue current dose. - advised to [facility]-Sandi ent was educated on his prescribed medication s, rationale for medication s, dosing indication s, adverse reactions, black box warning, dosing indication s, SE (e.g., decreased libido, weight gain, gynecomast ia, and galactorrh ea) and the risks and benefits.- Call center with questions/ concerns. Go to ER or call 911 for crisis (e.g., suicidal behaviors, suicidal ideations, intent or plan emerge). Additional ly, patient has suicide hotline #.- f/u 3-6 months- call with questions Smoker 31087591 F17.200 60 + pack smoking hx with no desire to quit at this times.- take as prescribed - stop smoking in 2 weeks [id number] TIARA CARRION [facility] [address] [place] [address] 01/05/2023 09:55:20 01/05/2023 10:27:10 Low back pain 877107165 M54.50 chronic low back pain. pain only with side stretch on exam. denies red flag sx. understand s sx of when to seek emergency care.PEX: normal hip and leg strength, normal gait-xray- pt [id number] TIARA CARRION [facility] [address] [place] [address] 06/03/2023 09:58:22 06/03/2023 10:21:33 Removal of suture 48633297 Z48.02 8 stitches removed from left cheekno signs of secondary infection, mild swelling still presents and yellow bruise [id number] TIARA CARRION [facility] [address] [place] [address] 01/04/2024 10:53:06 01/04/2024 12:10:40 Smoker 87179373 F17.200 60 + pack smoking hx currently smoking 1.5ppd with no desire to quit at this times. Chronic ob structive pulmonary disease 58276937 J44.9 Dr Pate at [facility]. seen recently. has not stopped smoking. worrisome spot will have PET scan. will be seeing surgeon soon to discuss. still smoking 1ppd. 60+ pack smoking history. CT scan in nov showed pulm nodules on right lung that look suspicious . He is having PET scan January 15 - Increasing his wixela - UTD ON flu vaccines - UTD pneumovax - stop smoking Hoarse 42248618 R49.0 2 months of hoarse voice. no neck mass/swoll en lymph-node s on neck. pharynx with erythema.E NT REFERRALUS will await PET scan on January 13may need CT neck Adult heal th examination 705919707 Z00.00 - labs- check BP- stop smoking- cut down beers Essential hypertension 39796232 I10 BP 114/68, WNL. Saw cardiologi st 12/12/21. no current changed. Denies cp, new sob, edema, vision changes. Medication regiment: lisinopril 20mg hcz 12.5mg qd , complainth as cardiology appoitnmen t next week to review echoAdvise d to check BP regularly with a goal of <140/90, if BP consistent ly >140/90, advised to contact clinic Discussed DASH diet Advised weight loss and diet is best way to control BP Advised 30 minutes of exercise minimum daily Advised tobacco, alcohol, caffeine all increase BP Advised goal for BP is <140/90 Hyperlipidemia 91366833 E78.5 controlled on atorvastat in. follows cardiology . 03/2021 TC 125, tri 44, HDL 73, LDL 41 [id number] Harvey larson MD [facility] [address] [place] [address] 05/02/2024 09:06:19 05/02/2024 09:48:24 Smoker 34344389 F17.200 60 + pack smoking hx currently smoking 1.5ppd with no desire to quit at this times. 4ppd Chronic ob structive pulmonary disease 53823509 J44.9 Dr Pate at [facility]. seen recently. has not stopped smoking.st ill smoking 1ppd. 60+ pack smoking history. CT scan in nov showed pulm nodules on right lung that look suspicious . - UTD ON flu vaccines - UTD pneumovax - stop smoking Essential hypertension 59685059 I10 Medication regiment: lisinopril 20mg hcz 12.5mg qd , good compliance has cardiology appoitnmen t next week to review echoAdvise d to check BP regularly with a goal of <140/90, if BP consistent ly >140/90, advised to contact clinic Discussed DASH diet Advised weight loss and diet is best way to control BP Advised 30 minutes of exercise minimum daily Advised tobacco, alcohol, caffeine all increase BP Advised goal for BP is <140/90 Hyperlipidemia 16459081 E78.5 controlled on atorvastat in. follows cardiology . 03/2021 TC 125, tri 44, HDL 73, LDL 40 Depressive disorder [id number] F32.9 continue current dose and close f/u one month scheduled - [facility]-Sandi ent was educated on his prescribed medication s, rationale for medication s, dosing indication s, adverse reactions, black box warning, dosing indication s, SE (e.g., decreased libido, weight gain, gynecomast ia, and galactorrh ea) and the risks and benefits.- Call center with questions/ concerns. Go to ER or call 911 for crisis (e.g., suicidal behaviors, suicidal ideations, intent or plan emerge). 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 seen recently. has not stopped smoking.st ill smoking 1/2ppd. 60+ pack smoking history. has a new CT coming up. 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 will assess kidneys function and hgb/cbc. On exam he appears comfortabl e. abdomen is soft. Will send to GI for f/u. Smoker [id number] F17.200 60 + pack smoking hx currently smoking 2 cigarettes per day with goal to stop. does have patches. [id number] Alexnadru Finley MD [facility] [address] [place] [address] 05/16/2025 15:22:55 05/17/2025 11:35:30 Peripheral vascular disease [id number] I73.9 [id number] Diagnosed in 2020 by vascular .he has not followed up but encouraged to do sopaperwor k filled out and returned to patientad ised to quit smoking Health Concerns Section Related Observation LastModified by Organization Detai ls LastModified Time None Recorded Concern Status LastModified by Organization Details LastModified Time None Recorded Advance Directives Directive Y: Payers Insurance Date Sequence Insurance Name Policy Number Policy Polo Covered Member ID Polo Member ID Guarantor Name 05/16/2025 2 [facility] ON OR AFTER 04/10/21 (MEDICAID REPLACEMENT - HMO) Stewart Baker [id number] Stewart Baker 09/03/2020 1 *SELF PAY* Th omas Samuel 05/16/2025 1 [facility] PRIOR TO 04/10/2021 (MEDICAID REPLACEMENT - HMO) Stewart Baker [id number] Stewart Baker 05/16/2025 2 [place] [facility] Stewart Baker [id number] Stewart Baker 05/16/2025 1 [facility] (MEDICARE REPLACEMENT/AD VANTAGE - HMO) [id number] Stewart Romel Baker [id number] Stewart Baker Notes Date Note Type Note Provider Name and Address Organization Details Recorded Time 01/04/2024 text/html ROS as noted in the HPI Stewart is a 58 YO M 60= pack yeasr smoker currently smoking 1.5 ppd pmhxz BPH, lung nodules, COPD, anxiety here for my voice changed and refills Stewart states he has had hoarse voice for 2 months w/o known cause. He denies recent URI. He denies fever, night sweats, weight loss, choking, trouble swallowing or sensation of something in his throat. He otherwise states he feels great and anxiety controlled. urology: patient follows Dr Vega for bph LUTS at [facility]. medications have not helped and they will perform surgery January 16 pulm: has PET scan scheduled January 09 and f/u with pulm January 12. TIARA CARRION Attn: Accounting[address] [place], [address], [facility] 01/04/2024 16:37:18 05/02/2024 text/html ROS as noted in the HPI Stewart is a 58 YO M 60 +pack year smoker currently smoking .5 ppd pmhxz BPH, lung nodules, COPD, newly diagnsed throat cancer 04/2024 dx with throat cancer 3 weeks ago. following Jovany Barrera? continues smoking 1/2 ppd on veran cycline. has f/u 05/03/[address] scan. He has some anxiety about new diagnos but is hopeful. He will get more information tomorrow. urology: patient follows Dr Vega for bph LUTS at [facility]. medications have not helped performed surgery January 16. did not help. 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 Romero as part of a multidisciplinary approach for the consideration of radiation treatment in the management of his disease process. He has decided to undergo radiation therapy for 7 weeks -. He will take lorazepam before each visit. He needs pulm labs taken today. [facility] pulm doctors got together and do not think he pulm nodules are cancer. 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 he will do radaition dx with throat cancer 3 weeks ago. following Jovany Barrera? continues smoking 1/2 ppd on veran cycline. has f/u 05/03/[address] scan. He has some anxiety about new diagnos but is hopeful. He will get more information tomorrow. urology: patient follows Dr Vega for bph LUTS at [facility]. medications have not helped performed surgery January 16. did not help. TIARA CARRION Attn: Accounting,[address] [facility], [place], [address], [facility] 06/08/2024 09:44:13 11/02/2024 text/html here for f/u on Diverticulitis hospitalization Patient was seen in hospital for sever abdominal pain. He was dx with diverticulitis with small perf. He was there for 5 days and released two days ago. He feels much better and denies cp, dizziness/light headedness,n/v. Still having diarrhea - 2x/day. drinks liquor (rum) and mixes it with 3-4 sodas daily. still smoking 2 cigarettes. Goal to stop this year. TIARA CARRION Attn: Accounting,[address] [facility], [place], [address], [facility] 11/02/2024 14:35:26 05/16/2025 text/html Stewart is here for paperwork He needs paperwork filled out to be able to ride public transportation and get a ride. He states he qualifies due to peripheral vascular disease diagnosed in 2020 by vascular doctor. TIARA CARRION Attn: Accounting,[address] [facility], [place], [address], [facility] 05/17/2025 09:07:47
--- OUTSIDE RECORDS SUMMARY | 2025-07-11 12:50 | XMS_ITS | Clinical Summary ---
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 Name Role Phone Verenice Bui Primary Care Provider + Rio Alcala MD Unavailable [phone] Ismael Ness MD PhD Unavailable Kal Gill MD Unavailable Allergies No known active allergies Medications atorvastatin (LIPITOR) 40 mg tabletIndication s:hyperlipidemia Take 1 tablet (40 mg total) by mouth nightly Active lisinopril-hydro CHLOROthiazide (ZESTORETIC) 20-12.5 mg per tabletIndication s:hypertension Take 1 tablet by mouth daily before breakfast Active traZODone (DESYREL) 50 mg tabletIndication s:insomnia associated with depression Take 2 tablets (100 mg total) by mouth nightly 12/19/19 22 Active sertraline (ZOLOFT) 100 mg tabletIndication s:Anxiety with Depression Take 1.5 tablets (150 mg total) by mouth nightly Patient stated he is taking 1.5 pills now. 12/20/19 22 Active albuterol HFA (PROVENTIL HFA,VENTOLIN HFA,PROAIR HFA) 90 mcg/actuation inhaler Inhale 2 puffs every 6 (six) hours as needed for wheezing or shortness of breath Active naloxone (NARCAN) 4 mg/actuation spray,non-aeroso lIndications:Mal ignant neoplasm of supraglottis (HCC) Administer 1 spray into affected nostril(s) as needed for opioid reversal Call 911. Administer a single spray in one nostril. Repeat every 3 minutes as needed if no or minimal response. 1 each 06/21/20 24 Active mirabegron ER (MYRBETRIQ) 50 mg tablet extended release 24 hr Take 1 tablet (50 mg total) by mouth daily 30 tablet 11 10/20/19 25 Active nicotine (NICODERM CQ) 14 mgIndications:Pari perez nicotine dependence without complication Place 1 patch on the skin daily 60 patch 1 11/17/19 25 Active oxyBUTYnin XL (DITROPAN-XL) 10 mg 24 hr tabletIndication s:BPH with obstruction/lowe r urinary tract symptoms,Overact jamel bladder Take 1 tablet (10 mg total) by mouth daily 90 tablet 05/21/20 25 Active montelukast (SINGULAIR) 10 mg tabletIndication s:Non-seasonal allergic rhinitis due to other allergic trigger TAKE 1 TABLET(10 MG) BY MOUTH EVERY NIGHT 90 tablet 05/30/20 25 Active fluticasone-umec lidin-vilanter (Trelegy Ellipta) 200-62.5-25 mcg inhaler INHALE 1 PUFF BY MOUTH DAILY 180 each 3 06/04/20 25 Active tamsulosin (FLOMAX) 0.4 mg extended release capsule TAKE 1 CAPSULE(0.4 MG) BY MOUTH DAILY 90 capsule 3 06/13/20 25 Active fluticasone propionate (FLONASE) 50 mcg/actuation nasal sprayIndications :Seasonal allergic rhinitis due to other allergic trigger SHAKE LIQUID AND USE 2 SPRAYS IN EACH NOSTRIL DAILY 48 g 2 07/02/20 25 Active tamsulosin (FLOMAX) 0.4 mg extended release capsule Take 1 capsule (0.4 mg total) by mouth daily 30 capsule 11 04/11/20 24 025 Discontinued fluticasone propionate (FLONASE) 50 mcg/actuation nasal sprayIndications :Seasonal allergic rhinitis due to other allergic trigger SHAKE LIQUID AND USE 2 SPRAYS IN EACH NOSTRIL DAILY 16 g 6 09/11/20 24 025 Discontinued Active Problems Patient Care Coordination No te Formatting of this note migh t be different from the original. This is a 58 year old male presenting to us at the request of Dr. Washington Salamanca for an evalauation of pulmonary nodules. He has a medical history significant for chronic hepatitis-C, peripheral artery disease, hypertension, hyperlipidemia, COPD and BPH. He is a current 1 pack per day smoker. He underwent a lung cancer screening CT scan on 12/24/2023. Moderate to severe pulmonary emphysema. A 12 x 12 mm right lower lobe nodule measured 6 mm on prior. There is a stable 5 mm right lower lobe nodule. Previously reported spiculated right upper lobe nodule has developed surrounding ground-glass opacity and central cystic component and now measures 17 x 19 mm width 15 x 10 mm prior. There is a stable 5 mm left lower lobe nodule. There is a new 5 mm right upper lobe nodule. Right middle lobe pneumatocele shows thinner wall with absence of previously seen fluid. Coronary artery calcification present. The ascending thoracic aorta measures 4 cm. He underwent a PET scan on 01/10/2024. The central airways are patent. Redemonstration of diffuse upper lobe predominant bilateral emphysematous changes. Bilateral hypermetabolic pulmonary nodules are again seen including: Bilobed right upper lobe nodule the SUV max of 6.5, previously 2.3. The hypermetabolic nodule in the superior segment of the right lower lobe measures 1.2 x 1.0 cm SUV max 4.4, previously 0.8 x 0.6 cm with SUV max of 0.9. Adjacent 6 mm nodule remained stable and demonstrates no significant FDG avidity. New 9 mm nodule in the inferior segment of the right upper lobe with a SUV max of 3.2. New 8 mm nodule in the left upper lobe with SUV max of 2.4. New 2 mm nodule in the peripheral left lower lobe demonstrates no significant FDG activity. 4 mm left lower lobe nodule adjacent to the left major fissure previously measured 6 mm and demonstrates no significant FDG avidity. The previously seen hypermetabolic nodular opacities in the left lower lobe have resolved. No suspicious or FDG avid lymphadenopathy. New focus of intense metabolic activity within the right vocal cord, likely physiologic. He underwent pulmonary function testing on 02/08/2024. His FEV1 is 39% of predicted, TLC 120% of predicted and DLCO 41% of predicted. He also underwent a 6 minute O2 assessment and was able to ambulate 900 ft and maintained SpO2 greater than 90% during the 6 minutes of walking. He underwent a FOB EBUS on 03/01/2024. Surgical pathology of the right upper lobe showed scant fragments of alveolated lung parenchyma with pigmented alveolar macrophages. Nondiagnostic for a mass lesion. Cytology of the right upper lobe was nondiagnostic for mass lesion; benign pulmonary elements only. He is scheduled for an updated chest CT on 04/20/2024. He is here for further surgical evaluation and discussion. Problem Noted Date Diagnosed Date Supraglottic mass 05/03/2024 Overview (11/01/2024): DIAGNOSIS: Laryngeal lesion PROCEDURE PERFORMED: (Nick 05/09/2024) Direct laryngoscopy with biopsy Malignant neoplasm of upper lobe, right bronchus or lung 04/18/2024 Chronic obstructive pulmonar y disease with (acute) exacerbation 02/08/2024 Hoarse 01/04/2024 Elevated PSA 07/08/2023 BPH with obstruction/lower urinary tract symptom s 01/26/2023 Low back pain 09/15/2022 01/26/2023 Suspected lung cancer 03/11/2022 Mass of upper lobe of right lung 03/04/2022 Plantar fasciitis of left foot 02/19/2022 0 01/26/2023 Depressive disorder 12/18/2021 01/26/2023 Urge incontinence of urine 12/18/202101/26 Multiple nodules of lung 12/04/2021 Pulmonary emphysema 12/04/2021 Hypertension, essential 05/20/2021 Assessment & Plan (05/20/2021 10:32 AM CDT): Impression: Chronic stable hypertension, controlled with medications. Blood pressure stable this visit. Plan: Medications reviewed. Continue blood pressure management as per primary care provider. Hyperlipidemia 05/20/2021 Assessment & Plan (05/20/2021 10:31 AM CDT): Impression: Chronic stable hyperlipidemia, controlled with medications. Plan: Medications reviewed. Continue statin therapy as per primary care provider. PAD (peripheral artery disease) 04/15/2021 Assessment & Plan (04/15/2021 1:02 PM CDT): Impression: Patient with complain of focal right thigh pain with no exacerbating symptoms. His symptoms are not consistent with any lower extremity arterial occlusive disease or vascular claudication. He has evidence of mild distal ischemia of both lower extremities on outside facility lower extremity arterial Doppler studies. He has palpable distal pulses bilaterally. Plan: No further vascular surgical workup per intervention needed at this time. Carotid bruit 04/15/2021 Assessment & Plan (05/20/2021 10:34 AM CDT): Impression: Patient denies any focal or lateralizing neurological defects at this time. He has a significant smoking history of 40+ years, smoking approximately 1 of 1 and half packs a day. Plan: Carotid ultrasounds revealed 16-49% stenosis to bilateral carotids. No surgical interventions needed at this time. Patient to follow-up as needed. Assessment & Plan (04/15/2021 1:03 PM CDT): Impression: Patient with no history of focal or lateralizing neurological deficits however he has a significant 40 to 50+ pack-year smoking history. Plan: Carotid duplex for carotid artery disease screening. Patient follow-up in 1 month for re-evaluation and discussion of test results. Encounter for screening for abdominal aortic aneurysm (AAA) in patient 50 years of age or older with history of smoking 04/15/2021 Assessment & Plan (05/20/2021 10:33 AM CDT): Impression: Aortic duplex for AAA screening was done reveals a 1.9 cm infrarenal abdominal aortic aneurysm. Patient has a 40+ years smoking history, smoking approximately 1-1 and half packs a day. Plan: No surgical interventions needed at this time. Patient to follow-up as needed. Assessment & Plan (04/15/2021 1:03 PM CDT): Impression: Patient with no known family history of aneurysmal disease however he has a significant 40 to 50+ pack-year smoking history with no prior abdominal aortic aneurysm screening. Plan: Aortic duplex for AAA screening. Patient follow-up 1 month for re- evaluation and discussion of test results. Tobacco abuse 04/15/2021 Assessment & Plan (05/20/2021 10:50 AM CDT): Impression: Patient is a current smoker for the past 40+ years. He currently smokes approximately 1-1.5 packs a day. Plan: Discussed with the patient the importance of smoking cessation and the negative affects on the cardiovascular health. Patient is currently not interested in quitting at this time. Assessment & Plan (04/15/2021 1:04 PM CDT): Patient with history of tobacco abuse who is a current everyday 1-1.5 pack per day smoker with a significant 50 pack-year smoking history. I had a greater than 3 minute discussion with the patient on the importance of smoking cessation and the negative affects on their cardiovascular health. The patient is currently not interested in quitting. Chronic hepatitis C without hepatic coma 017 Encounters Date Type Department Care Team Description 07/10/2025 Telephone [facility] ([facility]) - [facility] Medicine Urology [address] [place] [address] 11th [place] [address] [place] [address] Michelle Koo RN 06/13/2025 7:45 AM CDT - 06/13/2025 11:59 PM CDT Hospital Encounter [facility] Respiratory [address] [place] [address] Chronic obstructive pulmonary disease with (acute) exacerbation (HCC) Discharge Disposition: Discharge to home or self care 06/04/[address] [facility] Medicine [facility] [facility] [address] [place] [address] Elvi Augilar RMA from Last 3 Months Surgical History Surgery Date Site/Laterality Comments CLOSED REDUCTION HAND FRACTURE 10/11/2006 - 10/10/2007 Right all hardware removed TONSILLECTOMY and adenoids- as a child FRACTURE SURGERY Right 12 y/o no hardware reset in OR states right arm PROSTATE BIOPSY 08/11/2023 - 09/09/2023 TRANSPERINEAL EXACT VU GUIDED PROSTATE BIOPSY BRONCHOSCOPY 10/11/2020 - 10/10/[address] PROTOCOL WITH LAVAGE AND BIOPSY BLADDER SURGERY 01/10/2024 - 02/08/2024 urolift LAPAROSCOPY DIAGNOSTIC / BIOPSY / ASPIRATION / LYSIS 04/10/2024 - 05/10/2024 LARYNGOSCOPY WITH BIOPSY, Direct laryngoscopy COLONOSCOPY Medical History Medical History Date Comments Hyperlipidemia COPD (chronic obstructive pu lmonary disease) HTN (hypertension) Depression Hepatitis hep c and tx don e states remission Asthma Cough productive smoke r goes from white, yellow to brown Enlarged prostate Pulmonary nodule, right pulmonar y is watching denies any radiation states pt PAD (peripheral artery disease) MONTES (dyspnea on exertion) patien t states denies chest pain/relates to COPD Urgency incontinence Elevated PSA 4.0f Aneurysm Ectatic ascendin g thoracic aortic aneurysm measuring 4 cm. 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 BPH (benign prostatic hyperplasia) Diverticulitis last flare up on 10/2024 Allergic rhinitis Wears glasses Family History Medical History Relation Name Comments Heart attack Brother Pancreatic cancer Father's Sister Breast cancer Mother Stroke Mother Anesthesia problems Neg Hx Relation Name Status Comments Brother Father Father's Sister Mother Alive Social History Tobacco Use Types Packs/Day Years Used Date Smoking Tobacco: Every Day Cigarettes 0.4 47.7 Started: 1978 Smokeless Tobacco: Never Tobacco Cessation:Ready to Q uit: Not Asked; Counseling Given: Not Answered Comments:Last smoked today at [address] [facility] Hair Scynceities Answer Date Recorded In the past 12 months has th e electric, gas, oil, or water company threatened to shut off services in your home? No 12/13/2024 Social Connection and Isolation Panel Answer Date Recorded In a typical week, how many times do you talk on the phone with family, friends, or neighbors? Three times a week 12/13/2024 How often do you get togethe r with friends or relatives? Three times a week 12/13/2024 How often do you attend chur ch or anabaptism services? Never 12/13/2024 Do you belong to any clubs o r organizations such as gnosticism groups, unions, fraternal or athletic groups, or [...] any time in the past 12 m [facility], were you homeless or living in a custodial (including now)? No 12/13/2024 Personal Safety Answer Date Recorded Have you ever been in or are you currently in a harmful physical or emotional relationship or is someone making you feel afraid or unsafe? Denies 12/13/2024 Sex and Gender Information Value Date Recorded Sex Assigned at Not on file Legal Sex Male 8:23 PM SONOGRAPHY TECHNICIAN Gender Identity Not on file Sexual Orientation Not on file Obstetrics History Last Filed Vital Signs Vital Sign Reading Time Taken Comments Blood Pressure 117/77 12/13/2024 3:59 PM SONOGRAPHY TECHNICIAN Pulse 72 12/13/2024 3:59 PM SONOGRAPHY TECHNICIAN Temperature 36.5 C (97.7 F) 12/13/2024 3:59 PM SONOGRAPHY TECHNICIAN Respiratory Rate 18 12/13/2024 3:59 PM SONOGRAPHY TECHNICIAN Oxygen Saturation 95% 12/13/2024 3:59 PM SONOGRAPHY TECHNICIAN Inhaled Oxygen Concentration - - Weight 63.9 kg (140 lb 14.4 oz) 025 11:50 AM SONOGRAPHY TECHNICIAN Height 175.3 cm (5' 9) 12/13/2024 11:5 0 AM SONOGRAPHY TECHNICIAN Body Mass Index 20.81 12/13/2024 11:50 AM SONOGRAPHY TECHNICIAN Plan of Treatment Health Maintenance Due Date Last Done Comments Colon Cancer Screening-Colonoscopy 1964 Depression Screening 1964 Hepatitis B Screening 1982 Regular Well Visit/Exam 18-64 1982 Zoster Vaccine (1 of 2) 1983 Pneumococcal vaccine <65 (3 of 3 - PCV) 10/13/2022 10/13/2021, 01/31/2021 Lung Cancer Screening 11/08/2024 08/10/2024 , 05/03/2024, 12/24/2023, Additional history exists Influenza Vaccine (#1) 2025 , 08/11/2022, 10/13/2021, Additional history exists Prostate Cancer Screening-PSA 09/13/2026, 07/08/2023, 01/26/2023 DTaP/Tdap/Td Vaccine (3 - Td or Tdap) 05/29/2033 05/29/2023, 08/11/2022 Hepatitis C Screening Completed 04/18/2024, 017 Medical Devices Implanted Type Area [employer] Agent Device Identifier Shelf Expiration Date Model / Serial / Lot [employer] Prosthesis Uro Prostate Urethra Cartridge Urolift 2 Ul2-C - [id number] Implanted:Qty: 2 on 01/17/2024 by Lai Norwood MD at [facility] N/A: Prostate [employer] 03/16/2024 UL2-C / / [id number] [employer] Prosthesis Uro Prostate Urethra Cartridge Urolift 2 Ul2-C - [id number] Implanted:Qty: 1 on 01/17/2024 by Lai Norwood MD at [facility] N/A: Prostate [employer] 04/13/2025 UL2-C / / [id number] Procedures Procedure Name Priority Date/Time Associated Diagnosis Comments PULMONARY FUNCTION TEST (PFT) Routine 06/13/2025 8:50 AM CDT Chronic obstructive pulmonary disease with (acute) exacerbation (HCC) PSA DIAGNOSTIC Routine 09/13/2024 3:59 PM SONOGRAPHY TECHNICIAN Elevated PSA CT CHEST WO CONTRAST F/U LUNG SCREEN PROTOCOL Schedule Routine, Read Routine (OP Routine) 08/10/2024 9:27 AM CDT Pulmonary nodules from Last 3 Months or Most Recently Relevant to Health Maintenance Results * Pulmonary Function Test - (06/13/2025 8:50 AM CDT) FVC POST 3.16 L 06/13/2025 8:46 AM CDT [facility] FEV1 POST 1.17 L 06/13/2025 8:46 AM CDT [facility] [id number] 37.14 % 06/13/2025 8:46 AM CDT [facility] KLA74-16% POST 0.41 L/s 06/13/2025 8:46 AM CDT [facility] PEF POST 2.10 L/s 06/13/2025 8:46 AM CDT [facility] DLCOc SB 10.39 ml/(min*mm Hg) 06/13/2025 8:46 AM CDT [facility] DLCO/VA PRE 2.32 ml/(min*mm Hg*L) 06/13/2025 8:46 AM CDT [facility] VA 4.49 L 06/13/2025 8:46 AM CDT [facility] TLC PRE 5.67 L 06/13/2025 8:46 AM CDT [facility] VC PRE 2.98 L 06/13/2025 8:46 AM CDT [facility] IC PRE 2.48 L 06/13/2025 8:46 AM CDT [facility] FRC PL PRE 3.29 L 06/13/2025 8:46 AM CDT [facility] ERV PRE 0.60 L 06/13/2025 8:46 AM CDT [facility] RV PRE 2.69 L 06/13/2025 8:46 AM CDT [facility] RAW PRE 23.34 cmH2O*s/L 06/13/2025 8:46 AM CDT [facility] VTG 3.73 L 06/13/2025 8:46 AM CDT [facility] FVC PRE 2.98 L 06/13/2025 8:46 AM CDT [facility] FEV1 PRE 1.01 L 06/13/2025 8:46 AM CDT [facility] [id number] 33.75 % 06/13/2025 8:46 AM T [facility] SKY14-78% PRE 0.28 L/s 06/13/2025 8:46 AM T [facility] PEF PRE 2.59 L/s 06/13/2025 8:46 AM T [facility] Anatomical Region Laterality Modality PFT 06/13/2025 7:49 AM CDT Impressions 06/19/2025 8:23 PM CDT 1. Severe obstructive ventilatory limitation with likely concomitant mild restriction 2. Mild gas trapping 3. Severe diffusion impairment 4. During 6 minute walk test the patient ambulated 810 ft on ambient air with lowest oxygen saturation of 90% Electronically signed by Lai Rooney MD Pulmonary & Critical Care Narrative 06/19/2025 8:23 PM CDT PULMONARY FUNCTION TESTS Les Urena Drost 59 y.o. 06/19/2025 INTERPRETATION Please see technologist's comments mentioned in attached results report. SPIROMETRY: Pre bronchodilator FEV1 is 29 % predicted, FVC is 67 % predicted, FEV1/FVC is 0.34 Bronchodilator response: No Inspection of the patient's flow-volume loops shows: Scooping of the expiratory limb. Otherwise normal configuration of the inspiratory and expiratory limbs. LUNG VOLUMES: Lung volumes by body plethysmography: TLC is 82 % predicted, RV is 113 % predicted DLCO: Unadjusted for hemoglobin and carboxyhemoglobin DLCO is 37 % predicted Rio Alcala MD PFT ORDERABLES Final Result * (ABNORMAL) PSA diagnostic (09/13/2024 3:59 PM SONOGRAPHY TECHNICIAN) PSA-Total 3.91(H) <=3.90 ng/mL Comment: Interpretive Data AGE SEX REFERENCE INTERVAL 0 minutes-150 years Female None 0 minutes-49 years Male None 50-59 years Male 0-3.90 60-69 years Male 0-5.40 70-79 years Male 0-6.20 80-150 years Male 0-6.20 The Janell PSA Total assay procedure was used. Results from different manufacturers or methods may not be comparable. Serial testing should be performed using the same method. Current interpretive data last revised 22. Blood 09/13/2024 3:59 PM SONOGRAPHY TECHNICIAN 09/13/2024 4:07 PM SONOGRAPHY TECHNICIAN us Lai Norwood MD LAB BLOOD ORDERABLES Final Resul t [facility] [place] [address] * CT Chest WO Contrast F/U Lung Screen Protocol (08/10/2024 9:27 AM CDT) Anatomical Region Laterality Modality Chest N/A Computed Tomogra phy 08/14/2024 8:31 AM SONOGRAPHY TECHNICIAN Narrative 08/14/2024 10:15 AM SONOGRAPHY TECHNICIAN EXAM DESCRIPTION: CT CHEST WO CONTRAST F/U LUNG SCREEN PROTOCOL REASON FOR STUDY: Screening CT of the chest in a current smoker with a 68 pack year smoking history. Additional history: None. TECHNIQUE: Low dose CT scan of the chest was performed without intravenous contrast using helical scanning technique. The exam extends from the lung apices through the lung bases. Automatic exposure control was used as a dose optimization technique. NOTE: This study was performed for the specific purposes of lung cancer screening and is not an alternative to diagnostic chest CT. RADIATION DOSE: CT dose index volume (CTDIvol) = 1.15 mGy COMPARISON: CT chest 05/03/2024, FDG PET-CT 05/11/2024 FINDINGS: SMOKING RELATED LUNG DISEASE: Severe emphysema. LUNG NODULES: Multiple bilateral pulmonary nodules and nodular opacities some of which are new compared to prior. Other nodules remain stable, decreased or increased in size. For example: New 2.4 x 3.2 cm in the posterior right upper lobe extends to the pleural surface (-103). New 2.3 x 1.6 cm nodule in the anterior left upper lobe (74) 2.3 x 1.7 cm posteromedial left upper lobe nodule previously 2.9 x 2.6 cm. 0.7 cm nodule in the medial right lower lobe previously 1.1 x 0.8 cm (3/165) 2.4 x 2.0 cm nodule in the right upper lobe previously 1.1 x 0.9 cm (3/129) 1.6 cm nodule in the lateral left upper lobe previously 1.2 cm (3/105) 0.6 cm nodule in the lateral right upper lobe remains stable (/109) CORONARY ARTERY CALCIFICATION: None OTHER: No focal consolidation, pleural effusion or pneumothorax. Normal-sized heart without pericardial effusion. Normal caliber of the great vessels. Atherosclerotic calcification of the aorta and coronary arteries. No pleural effusion. No thoracic lymphadenopathy. Visualized upper abdomen demonstrates no acute findings. No suspicious osseous findings. IMPRESSION: Multiple bilateral pulmonary nodules and nodular opacities most of which are new or increased in size. Few remain stable or decreased in size. Although this may represent persistent multifocal infectious process, findings remain suspicious. Continued attention to follow-up. Lung-RADS category 4A: Suspicious. Recommendation: Low dose CT of chest in 3 months. THIS IS AN ELECTRONICALLY VERIFIED FINAL REPORT 08/14/2024 10:15 AM - Electronically signed by Jane Wooten M.D. FT T: Report ID: [id number] Reading Location: [id number] Procedure Note Jane Gonzales MD - 08/14/2024 EXAM DESCRIPTION: CT CHEST WO CONTRAST F/U LUNG SCREEN PROTOCOL REASON FOR STUDY: Screening CT of the chest in a current smoker with a68 pack year smoking history. Additional history: None. TECHNIQUE: Low dose CT scan of the chest was performed without intravenous contrast using helical scanning technique. The exam extends from the lung apices through the lung bases. Automatic exposure control was used as adose optimization technique. NOTE: This study was performed for the specific purposes of lung cancer screening and is not an alternative to diagnostic chest CT. RADIATION DOSE: CT dose index volume (CTDIvol) = 1.15 mGy COMPARISON: CT chest 05/03/2024, FDG PET-CT 05/11/2024 FINDINGS: SMOKING RELATED LUNG DISEASE: Severe emphysema. LUNG NODULES: Multiple bilateral pulmonary nodules and nodular opacities some of which are new compared to prior. Other nodules remain stable, decreased or increased in size. For example: New 2.4 x 3.2 cm in the posterior right upper lobe extends to the pleural surface (-103). New 2.3 x 1.6 cm nodule in the anterior left upper lobe (74) 2.3 x 1.7 cm posteromedial left upper lobe nodule previously 2.9 x 2.6cm. 0.7 cm nodule in the medial right lower lobe previously 1.1 x 0.8 cm(/165) 2.4 x 2.0 cm nodule in the right upper lobe previously 1.1 x 0.9 cm(/129) 1.6 cm nodule in the lateral left upper lobe previously 1.2 cm (/105) 0.6 cm nodule in the lateral right upper lobe remains stable (/109) CORONARY ARTERY CALCIFICATION: None OTHER: No focal consolidation, pleural effusion or pneumothorax. Normal-sized heart without pericardial effusion. Normal caliber of thegreat vessels. Atherosclerotic calcification of the aorta and coronary arteries.No pleural effusion. No thoracic lymphadenopathy. Visualized upper abdomen demonstrates no acute findings. No suspicious osseous findings. IMPRESSION: Multiple bilateral pulmonary nodules and nodular opacitiesmost of which are new or increased in size. Few remain stable or decreased in size. Although this may represent persistent multifocal infectiousprocess, findings remain suspicious. Continued attention to follow-up. Lung-RADS category 4A: Suspicious. Recommendation: Low dose CT of chest in 3 months. THIS IS AN ELECTRONICALLY VERIFIED FINAL REPORT 08/14/2024 10:15 AM - Electronically signed by Jane Wooten M.D. 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 [address] [address] Consulting Physician Pulmonary Disease 03/11/22 Ismael Ness MD PhD [address] [place] [place] [address] Consulting Physician Medical Oncology 03/11/22 Kal Gill MD [address] [facility] [address] [place] [address] Radiation Oncologist Radiation Oncology 05/25/24
--- OUTSIDE RECORDS SUMMARY | 2025-07-11 12:50 | XMS_ITS | Clinical Summary ---
Author Organization [facility] Address [address] [address] Phone Care Team Providers Care Seed Cleaner Operator Name Role Phone Boogie Almaguer DO Unavailable [phone] Osmar Thomas MD Primary Care Provider [phone] Allergies No known active allergies Medications lisinopril-hydroCH [...] 11/24/2020 11/24/2018, 02/04/2017 Colorectal Cancer Screening 11/24/2020 Hepatitis B Immunization (1 of 3 - Risk 3-dose series) 2024 Respiratory Syncytial Virus (RSV) Immunization (Adult) (1 - Risk 60-74 years 1-dose series) 2024 Influenza Immunization (#1) 2025 SARS-COV-2 Immunization ( - season) 2025 PSA Discussion Discontinued 09/07/2018 Human Papillomavirus [...] Most Recently Relevant to Health Maintenance Insurance [facility] Care Teams Seed Cleaner Operator Relationship Specialty Start Date End Date Osmar Thomas MD [address] [place] [address] PCP - General Internal Medicine 11/05/16 Boogie Almaguer DO Gastroenterology 11/05/16
--- OUTSIDE RECORDS SUMMARY | 2025-07-11 12:50 | XMS_ITS ---
Author Organization [facility] Address [address] [place] [address] Care Team Providers Care Manager Medical Writing Name Role Phone Verenice Bui Primary Care Provider + Rio Alcala MD Unavailable [phone] Ismael Ness MD PhD Unavailable Kal Gill MD Unavailable Active Problems Patient Care Coordination No te [...] Chronic hepatitis C without hepatic coma 017 Current Treatment and Therapy Plans No current plan information found. Past Treatment and Therapy Plans No past plan information found. Radiation Treatments * Course [id number]/14/2024 - 08/01/2024 Treatment Period Energy Fraction Dose Fractions Total Dose Plans Planned LARYNX 06/14/2024 - 08/01/2024 200 35 / 7,000 Reference Points Delivered CTV_7000 06/14/2024 - 08/01/2024 7,000 Lifetime Dose Tracking * Chemical Lifetime Dose Automatic Entry Manual Entr y DLP 582 mGycm 582 mGycm 0 mGycm CTDIvol 6.46 mGy 6.46 mGy 0 mGy
--- OUTSIDE RECORDS SUMMARY | 2025-07-11 12:50 | XMS_ITS | Encounter Summary ---
Author Organization [facility] Address [address] [place] [address] Care Team Providers Care Dialysis Social Worker Name Role Phone Verenice Bui Primary Care Provider + Rio Alcala MD Unavailable [phone] Ismael Ness MD PhD Unavailable Mari Romero RN Unavailable Unavailabl e Kal Gill MD Unavailable Encounter Details Date Type Department Care Team (Late st Contact Info) Description 08/01/2024 Documentation [facility] Nutrition Counseling [address] [place] [address] Social History Tobacco Use Types Packs/Day Years Used Date Smoking Tobacco: Every Day Cigarettes 1 47.7 Started: 1978 Smokeless Tobacco: Never AUDIT-C Answer Date Recorded Q1: How often do you have a drink containing alcohol? 4 or more times a week 05/09/2024 Q2: How many drinks containi ng alcohol do you have on a typical day when you are drinking? 3 or 4 Q3: How often do you have si x or more drinks on one occasion? Weekly 05/09/2024 Personal Safety Answer Date Recorded Have you ever been in or are you currently in a harmful physical or emotional relationship or is someone making you feel afraid or unsafe? 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 Gender Identity Not on file Sexual Orientation Not on file documented as of this encounter Plan of Treatment Not on file documented as of this encounter Visit Diagnoses Not on filedocumented in this encounter Care Teams Dialysis Social Worker Relationship Specialty Start Date End Date Verenice Bui PA PCP - General Physician Marketing Communications Leader 08/15/21 Rio Alcala MD [address] [address] Consulting Physician Pulmonary Disease 03/11/22 Ismael Ness MD PhD [address] [place] [address] Consulting Physician Medical Oncology 03/11/22 Mari Romero, RN Nurse Navigator 05/03/24 11/01/24 Kal Gill MD [address] [facility] [address] [place] [address] Radiation Oncologist Radiation Oncology 05/25/24 documented as of this encounter
--- OUTSIDE RECORDS SUMMARY | 2025-07-11 12:50 | XMS_ITS | Clinical Summary ---
Author Organization [facility] Address [facility] [place] [address] Care Team Providers Care Quality Control Tester Name Role Phone Unavailable Primary Care Provider [...] Vaccines (1 of 2) 2014 COVID-19 Vaccine (1 - 2023-2 5 season) 2025 RSV Immunization or 60+ Years (1 - [...]
== END 2025-07-11 12:43 | disposition home or self-care (01) ==
PROVIDERS: PCP Physician Assistant
DX: N40.1 Benign prostatic hyperplasia with lower urinary tract symptoms (principal); N13.8 Other obstructive and reflux uropathy
CPT/HCPCS: 87086